=== PATIENT | male | born 1945 | race Hispanic/Latino ===

== ENCOUNTER 2017-06-02 13:18 | Emergency (ER) | payer MEDICARE ==
[2017-06-02 13:39] VITALS: BP 100/63
[2017-06-02 14:47] LABS: Bilirubin,Urine NEG (Negative); Blood,Urine NEG (Negative); Color,Urine Yellow (Yellow); Protein,Urine <15 mg/dL mg/dL (Negative); Urobilinogen,Urine < 2.0 mg/dL (<2.0)
--- NOTE | 2017-06-02 15:50 | Emergency Department Report ---
ED General Adult HPI - General Chief complaint: Dizziness Stated complaint: DIZZINESS Time Seen by Provider: 06/02/17 15:39 Source: patient Mode of arrival: Ambulatory Limitations: No Limitations - History of Present Illness Initial comments: Mr. Thrasher is a very pleasant 71 yo male with hx of CAD s/p CABG 2014 who presents with fatigue for 2 months. Normally walks 1-2 miles. Unable to exercise due to fatigue. Has has achy pain in both legs. Burning pain in both arms with lower neck pain. Recent physical exam with lab work by MD physician. He stopped taking all medications 1 1/2 weeks ago due to achiness and fatigue. -: Gradual, month(s) (2 months) - Related Data Home Medications Medication Instructions Recorded Confirmed Last Taken glipiZIDE [Glucotrol Xl] 5 mg PO DAILY 02/20/15 04/26/15 04/26/15 traMADol [Ultram] 50 mg PO BID 02/20/15 04/26/15 04/25/15 Aspirin [Aspirin EC] 162 mg PO DAILY 04/26/15 04/26/15 04/26/15 AtorvaSTATin [Lipitor] 40 mg PO QHS 04/26/15 04/26/15 04/25/15 Metoprolol Tartrate 12.5 mg PO BID 04/26/15 04/26/15 04/26/15 Previous Rx's Medication Instructions Recorded Last Taken Type metFORMIN [Glucophage] 500 mg PO BID #90 tablet 10/08/14 04/26/15 Rx Allergies Allergy/AdvReac Type Severity Reaction Status Date / Time No Known Allergies Allergy Verified 04/26/15 11:15 ED Review of Systems ROS: Stated complaint: DIZZINESS Other details as noted in HPI Comment: All other systems reviewed and negative Constitutional: denies: fever, malaise Respiratory: denies: cough Cardiovascular: denies: chest pain, palpitations Gastrointestinal: denies: abdominal pain, nausea, vomiting ED Past Medical Hx - Past Medical History Hx Hypertension: Yes Hx Diabetes: Yes Hx Sickle Cell Disease: No Hx Kidney Stones: Yes (LEFT) Hx HIV: No Additional medical history: DIVERTICULITIS, - Surgical History Hx Open Heart Surgery: Yes Additional Surgical History: LEFT EAR SURGERY. CABG X2. 02/26/2015. [facility]. Cardiac Cath 02/21/2015 here - Social History Smoking Status: Never Smoker Substance Use Type: None - Medications Home Medications: Home Medications Medication Instructions Recorded Confirmed Last Taken Type metFORMIN [Glucophage] 500 mg PO BID #90 tablet 10/08/14 04/26/15 04/26/15 Rx glipiZIDE [Glucotrol Xl] 5 mg PO DAILY 02/20/15 04/26/15 04/26/15 History traMADol [Ultram] 50 mg PO BID 02/20/15 04/26/15 04/25/15 History Aspirin [Aspirin EC] 162 mg PO DAILY 04/26/15 04/26/15 04/26/15 History AtorvaSTATin [Lipitor] 40 mg PO QHS 04/26/15 04/26/15 04/25/15 History Metoprolol Tartrate 12.5 mg PO BID 04/26/15 04/26/15 04/26/15 History ED Physical Exam - General Limitations: No Limitations General appearance: alert, in no apparent distress - Head Head exam: Present: atraumatic, normocephalic - Eye Eye exam: Present: normal appearance - ENT ENT exam: Present: mucous membranes moist - Neck Neck exam: Present: normal inspection - Respiratory Respiratory exam: Present: normal lung sounds bilaterally. Absent: respiratory distress, wheezes, rales, rhonchi - Cardiovascular Cardiovascular Exam: Present: regular rate, normal rhythm, normal heart sounds. Absent: systolic murmur, diastolic murmur, rubs, gallop - GI/Abdominal GI/Abdominal exam: Present: soft, normal bowel sounds. Absent: distended, tenderness, guarding, rebound - Rectal Rectal exam: Present: normal rectal tone, heme (+) stool, other (brown soft stool no gross blood nor melena) - Extremities Exam Extremities exam: Present: normal inspection - Back Exam Back exam: Present: normal inspection - Neurological Exam Neurological exam: Present: alert, oriented X3 - Psychiatric Psychiatric exam: Present: normal affect, normal mood - Skin Skin exam: Present: warm, dry, intact, normal color. Absent: rash ED Course Vital Signs 06/02/17 13:30 Temperature 98.7 F Pulse Rate 111 H Respiratory 20 Rate Blood Pressure 100/63 O2 Sat by Pulse 98 Oximetry ED Medical Decision Making - Lab Data Result diagrams: 06/02/17 15:45 06/02/17 15:45 - EKG Data -: EKG Interpreted by Me EKG shows normal: sinus rhythm, axis, intervals, QRS complexes, ST-T waves Rate: normal - EKG Data NSR nl rate nl axis nl intervals no ST-T signs of ischemia no ST elevation rate 95 bpm - Medical Decision Making Mr. Thrasher presents with 2 months of fatigue and extremity pain. Symptoms are due to anemia. +hemoccult stool +subacute GI bleed I had a very pleasant encounter with Mr. Thrasher. He politely declined admission to hospital for transfusion and GI consultation. He knows that he needs a higher hemoglobin level with transfusion in order to protect his heart. He left AMA to f/u with his primary doctor tomorrow. [facility] Critical care attestation.: If time is entered above; I have spent that time in minutes in the direct care of this critically ill patient, excluding procedure time. ED Disposition Clinical Impression: Anemia, GI bleed Disposition: DC-01 TO HOME OR SELFCARE Is pt being admited?: No Does the pt Need Aspirin: No Condition: Stable Instructions: Anemia (ED), Gastrointestinal Bleeding (ED) Additional Instructions: Your hemoglobin is 7. You need a blood transfusion to protect your heart. You are have blood in your stool. Referrals: PRIMARY CARE, [Primary Care Provider] - 3-5 Days Forms: AMA Form Time of Disposition: 16:39
[2017-06-02 15:58] LABS: Basophils # (Auto) 0.1 K/mm3 (0.0-0.1); Basophils % (Auto) 0.6 % (0.0-1.8); Eosinophils # (Auto) 0.1 K/mm3 (0.0-0.4); Lymphocytes # (Auto) 2.4 K/mm3 (1.2-5.4); Lymphocytes % (Auto) 20.5 % (13.4-35.0); Mean Corpuscular HGB Conc 29 % (32-34); Monocytes # (Auto) 0.9 K/mm3 (0.0-0.8); Platelet Count 343 K/mm3 (140-440); Red Blood Count 4.08 M/mm3 (3.65-5.03); Red Cell Distribution Width 17.1 % (13.2-15.2)
[2017-06-02 16:02] LABS: Hemoglobin 7.9 gm/dl (11.8-15.2)
[2017-06-02 16:03] LABS: Hematocrit 27.1 % (35.5-45.6); Mean Corpuscular Hemoglobin 19 pg (28-32); Mean Corpuscular Volume 66 fl (84-94)
[2017-06-02 16:09] LABS: Alanine Aminotransferase 20 units/L (7-56); Albumin 4.3 g/dL (3.9-5); BUN/Creatinine Ratio 22; Blood Urea Nitrogen 22 mg/dL (9-20); Calcium 9.2 mg/dL (8.4-10.2); Hemolysis Index 23
--- NOTE | 2017-06-02 16:59 | XRay Report ---
FINAL REPORT EXAM: XR CHEST ROUTINE 2V HISTORY: fatigue TECHNIQUE: PA and lateral views of the chest PRIORS: None. FINDINGS: Lines, tubes, and devices: Median sternotomy wires are noted. Lungs and pleura: Trachea is normal in position. Linear scarring or atelectasis in the right middle lobe is noted. Lungs are otherwise clear of infiltrate, pleural effusion, vascular congestion, or pneumothorax. Cardiomediastinal silhouette: Cardiac and mediastinal silhouettes are unremarkable. Other: Bony structures are intact. IMPRESSION: Linear scarring or atelectasis in the right middle lobe. Otherwise, no acute cardiopulmonary process seen.
--- NOTE | 2017-06-02 17:04 | XRay Report ---
FINAL REPORT EXAM: XR SPINE CERVICAL 2-3V HISTORY: neck pain arm pain TECHNIQUE: AP, lateral, swimmer's, and odontoid views of the cervical spine PRIORS: None. FINDINGS: The vertebral body heights are well maintained. Moderate disc space narrowing from C5 through C7 is seen with spurring anteriorly and posteriorly. The alignment is normal. No prevertebral soft tissue swelling is seen. The odontoid is intact. Extensive bilateral facet joint degenerative changes at all levels is seen. IMPRESSION: 1. No acute bony abnormality noted. 2. Moderate disc space narrowing from C5 through C7 with spurring anteriorly and posteriorly at these levels 3. Bilateral facet joint degenerative changes throughout the cervical spine.
== END 2017-06-02 16:55 | disposition home or self-care (01) ==
LOC: ED 13:18
DX: K92.2 Gastrointestinal hemorrhage, unspecified (principal); D64.9 Anemia, unspecified; M54.2 Cervicalgia; M79.604 Pain in right leg; M79.605 Pain in left leg; M79.601 Pain in right arm; M79.602 Pain in left arm; I10 Essential (primary) hypertension; E11.9 Type 2 diabetes mellitus without complications; Z87.442 Personal history of urinary calculi; I25.10 Atherosclerotic heart disease of native coronary artery without angina pectoris; Z95.1 Presence of aortocoronary bypass graft
CPT/HCPCS: 36415; 71046; 72040; 80053; 81001; 83880; 85025; 93005; 93010; 99284

== ENCOUNTER 2017-06-03 10:17 | Inpatient (IN) | payer MEDICARE ==
[2017-06-03] MEDS ORDERED: NACL 0.9% 1000 ML 1,000 ML IV ONE (10:55)
[2017-06-03 11:11] LABS: Basophils # (Auto) 0.1 K/mm3 (0.0-0.1); Basophils % (Auto) 0.7 % (0.0-1.8); Eosinophils # (Auto) 0.2 K/mm3 (0.0-0.4); Eosinophils % (Auto) 1.4 % (0.0-4.3); Hematocrit 26.5 % (35.5-45.6); Hemoglobin 7.9 gm/dl (11.8-15.2); Lymphocytes # (Auto) 2.4 K/mm3 (1.2-5.4); Lymphocytes % (Auto) 21.2 % (13.4-35.0); Mean Corpuscular HGB Conc 30 % (32-34); Monocytes # (Auto) 0.9 K/mm3 (0.0-0.8); Monocytes % (Auto) 7.8 % (0.0-7.3); Platelet Count 315 K/mm3 (140-440); Red Blood Count 4.08 M/mm3 (3.65-5.03); Red Cell Distribution Width 17.5 % (13.2-15.2)
[2017-06-03 11:15] LABS: Mean Corpuscular Volume 65 fl (84-94)
[2017-06-03 11:16] LABS: Mean Corpuscular Hemoglobin 19 pg (28-32)
[2017-06-03 11:23] LABS: INR 1.01 (0.87-1.13)
[2017-06-03 11:24] LABS: Partial Thromboplastin Time 30.9 Sec. (24.2-36.6)
[2017-06-03 11:26] LABS: Alanine Aminotransferase 20 units/L (7-56); Albumin 4.3 g/dL (3.9-5); BUN/Creatinine Ratio 24; Blood Urea Nitrogen 22 mg/dL (9-20); Calcium 9.3 mg/dL (8.4-10.2); Hemolysis Index 0; Lipase 34 units/L (13-60)
--- NOTE | 2017-06-03 16:59 | Emergency Department Report ---
- General Chief complaint: GI Bleed Stated complaint: ANEMIA/SOB/CHEST PAIN Time Seen by Provider: 06/03/17 16:33 Source: patient, old records reviewed Mode of arrival: Ambulatory Limitations: No Limitations - History of Present Illness Initial comments: 71-year-old male with a past medical history diabetes, hypertension and diverticulitis, and CABG 1 (2015- pt's most recent cath) vessel this hospital with complaints of weakness, fatigue, and despite exertion. For the past 2 months patient states he has been having worsening dyspnea on exertion and dyspnea fatigue with activity. He has not the point where he could barely take a shower and shaved without his arms feeling heavy. The past month he has been lightheaded. He denies chest pain, melena, hematochezia, hematemesis, or fever. Patient was seen here yesterday by Dr. Marizol Eid and found to be anemic with heme positive stool and signed out AMA with plans to follow up with his primary care doctor today. His primary care doctor was unavailable and therefore he presented here again for treatment. Patient takes 2 baby aspirins daily and denies other anticoagulant use. Severity scale (0 -10): 0 - Related Data Home Medications Medication Instructions Recorded Confirmed Last Taken glipiZIDE [Glucotrol Xl] 5 mg PO DAILY 02/20/15 04/26/15 04/26/15 traMADol [Ultram] 50 mg PO BID 02/20/15 04/26/15 04/25/15 Aspirin [Aspirin EC] 162 mg PO DAILY 04/26/15 04/26/15 04/26/15 AtorvaSTATin [Lipitor] 40 mg PO QHS 04/26/15 04/26/15 04/25/15 Metoprolol Tartrate 12.5 mg PO BID 04/26/15 04/26/15 04/26/15 Previous Rx's Medication Instructions Recorded Last Taken Type metFORMIN [Glucophage] 500 mg PO BID #90 tablet 10/08/14 04/26/15 Rx Allergies Allergy/AdvReac Type Severity Reaction Status Date / Time No Known Allergies Allergy Verified 04/26/15 11:15 ED Review of Systems ROS: Stated complaint: ANEMIA/SOB/CHEST PAIN Other details as noted in HPI Comment: All other systems reviewed and negative ED Past Medical Hx - Past Medical History Previous Medical History?: Yes Hx Hypertension: Yes Hx Diabetes: Yes Hx Sickle Cell Disease: No Hx Kidney Stones: Yes (LEFT) Hx HIV: No Additional medical history: DIVERTICULITIS, bulging disc in neck - Surgical History Past Surgical History?: Yes Hx Open Heart Surgery: Yes Additional Surgical History: LEFT EAR SURGERY. CABG X2. 02/26/2015. [facility] [place]. Cardiac Cath 02/21/2015 here - Social History Smoking Status: Former Smoker Substance Use Type: Prescribed - Medications Home Medications: Home Medications Medication Instructions Recorded Confirmed Last Taken Type metFORMIN [Glucophage] 500 mg PO BID #90 tablet 10/08/14 04/26/15 04/26/15 Rx glipiZIDE [Glucotrol Xl] 5 mg PO DAILY 02/20/15 04/26/15 04/26/15 History traMADol [Ultram] 50 mg PO BID 02/20/15 04/26/15 04/25/15 History Aspirin [Aspirin EC] 162 mg PO DAILY 04/26/15 04/26/15 04/26/15 History AtorvaSTATin [Lipitor] 40 mg PO QHS 04/26/15 04/26/15 04/25/15 History Metoprolol Tartrate 12.5 mg PO BID 04/26/15 04/26/15 04/26/15 History ED Physical Exam - General Limitations: No Limitations - Other Other exam information: General: No limitations, patient is alert in no acute distress Head exam: Atraumatic, normocephalic Eyes exam: Normal appearance, pupils equal reactive to light, extraocular movements intact ENT: Moist mucous membrane, normal oropharynx Neck exam: Normal inspection, full range of motion, no meningismus nontender Respiratory exam: Clear to auscultation bilateral, no wheezes, rales, crackles Cardiovascular: Normal rate and rhythm, normal heart sounds Abdomen: Soft, nondistended, and nontender, with normal bowel sounds, no rebound, or guarding Extremity: Full range of motion normal inspection no deformity, no calf tenderness or edema Back: Normal Inspection, full range of motion, no tenderness Neurologic: Alert, oriented x3, cranial nerves intact, no motor or sensory deficit Psychiatric: normal affect, normal mood Skin: Warm, dry, intact ED Course Vital Signs 06/03/17 06/03/17 06/03/17 10:50 14:33 16:04 Temperature 97.9 F 98 F Pulse Rate 103 H 96 H 85 Respiratory 18 17 17 Rate Blood Pressure 134/73 Blood Pressure 119/68 152/68 [Left] O2 Sat by Pulse 98 98 97 Oximetry ED Medical Decision Making - Lab Data Result diagrams: 06/03/17 10:58 06/03/17 10:58 Lab Results 06/03/17 06/03/17 06/03/17 Range/Units 10:58 10:58 10:58 WBC 11.2 H (4.5-11.0) K/mm3 RBC 4.08 (3.65-5.03) M/mm3 Hgb 7.9 L (11.8-15.2) gm/dl Hct 26.5 L (35.5-45.6) % MCV 65 L (84-94) fl MCH 19 L (28-32) pg MCHC 30 L (32-34) % RDW 17.5 H (13.2-15.2) % Plt Count 315 (140-440) K/mm3 Lymph % (Auto) 21.2 (13.4-35.0) % [place] % (Auto) 7.8 H (0.0-7.3) % Eos % (Auto) 1.4 (0.0-4.3) % Baso % (Auto) 0.7 (0.0-1.8) % Lymph # 2.4 (1.2-5.4) K/mm3 [place] # 0.9 H (0.0-0.8) K/mm3 Eos # 0.2 (0.0-0.4) K/mm3 Baso # 0.1 (0.0-0.1) K/mm3 Seg Neutrophils % 68.9 (40.0-70.0) % Seg Neutrophils # 7.7 (1.8-7.7) K/mm3 PT 13.8 (12.2-14.9) Sec. INR 1.01 (0.87-1.13) APTT 30.9 (24.2-36.6) Sec. Sodium 134 L (137-145) mmol/L Potassium 4.9 (3.6-5.0) mmol/L Chloride 94.7 L (98-107) mmol/L Carbon Dioxide 24 (22-30) mmol/L Anion Gap 20 mmol/L BUN 22 H (9-20) mg/dL Creatinine 0.9 (0.8-1.5) mg/dL Estimated GFR > 60 ml/min BUN/Creatinine Ratio 24 % Glucose 355 H (75-100) mg/dL Calcium 9.3 (8.4-10.2) mg/dL Total Bilirubin 0.50 (0.1-1.2) mg/dL AST 21 (5-40) units/L ALT 20 (7-56) units/L Alkaline Phosphatase 78 (35-129) units/L Total Protein 7.2 (6.3-8.2) g/dL Albumin 4.3 (3.9-5) g/dL Albumin/Globulin Ratio 1.5 % Lipase 34 (13-60) units/L Blood Type Antibody Screen 06/03/17 Range/Units 10:58 WBC (4.5-11.0) K/mm3 RBC (3.65-5.03) M/mm3 Hgb (11.8-15.2) gm/dl Hct (35.5-45.6) % MCV (84-94) fl MCH (28-32) pg MCHC (32-34) % RDW (13.2-15.2) % Plt Count (140-440) K/mm3 Lymph % (Auto) (13.4-35.0) % [place] % (Auto) (0.0-7.3) % Eos % (Auto) (0.0-4.3) % Baso % (Auto) (0.0-1.8) % Lymph # (1.2-5.4) K/mm3 [place] # (0.0-0.8) K/mm3 Eos # (0.0-0.4) K/mm3 Baso # (0.0-0.1) K/mm3 Seg Neutrophils % (40.0-70.0) % Seg Neutrophils # (1.8-7.7) K/mm3 PT (12.2-14.9) Sec. INR (0.87-1.13) APTT (24.2-36.6) Sec. Sodium (137-145) mmol/L Potassium (3.6-5.0) mmol/L Chloride (98-107) mmol/L Carbon Dioxide (22-30) mmol/L Anion Gap mmol/L BUN (9-20) mg/dL Creatinine (0.8-1.5) mg/dL Estimated GFR ml/min BUN/Creatinine Ratio % Glucose (75-100) mg/dL Calcium (8.4-10.2) mg/dL Total Bilirubin (0.1-1.2) mg/dL AST (5-40) units/L ALT (7-56) units/L Alkaline Phosphatase (35-129) units/L Total Protein (6.3-8.2) g/dL Albumin (3.9-5) g/dL Albumin/Globulin Ratio % Lipase (13-60) units/L Blood Type O POSITIVE Antibody Screen Negative - EKG Data -: EKG Interpreted by Al EKG shows normal: sinus rhythm, axis (qrs -17), QRS complexes (86), ST-T waves ( no stemi/t wave) Rate: normal (94) - EKG Data When compared to previous EKG there are: no significant change - Radiology Data Radiology results: report reviewed Chest x-ray from yesterday reviewed. Linear atelectasis right middle lobe - Differential Diagnosis CAD, PE, and symptomatic anemia Critical Care Time: No Critical care attestation.: If time is entered above; I have spent that time in minutes in the direct care of this critically ill patient, excluding procedure time. ED Disposition Clinical Impression: Symptomatic anemia, Generalized weakness, S/P CABG x 1, Diabetes mellitus, Guaiac positive stools, DOTY (dyspnea on exertion) Disposition: -09 OP ADMIT IP TO THIS HOSP Is pt being admited?: Yes Condition: Stable Time of Disposition: 16:59 (Dr hall/hosp)
[2017-06-03] MEDS ORDERED: ZOFRAN IV PRN (21:42)
[2017-06-03] MEDS ORDERED: TYLENOL PO PRN (21:42)
[2017-06-03] MEDS ORDERED: SODIUM CHLORIDE FLUSH SYRINGE 10 ML IV PRN (21:42)
[2017-06-03] MEDS ORDERED: MORPHINE IV PRN (21:42)
--- NOTE | 2017-06-03 21:42 | History and Physical Report ---
History of Present Illness Date of examination: 06/03/17 Date of admission: 06/03/17 17:00 Chief complaint: Chief complaint: Feeling very weak History of present illness: History of Present Illness: 71-year-old male with past medical history of type 2 diabetes hypertension diverticulitis and coronary artery disease presents to the emergency room with complaints of weakness fatigue and dyspnea on exertion. For the past 2 months patient's symptoms are worsening and is getting short of breath easily. Class IV NYHA symptoms. Patient is also lightheaded. No hematemesis or melena. Patient came to the emergency room yesterday for the same symptoms and was found to be anemic. Patient was advised admission but he signed out AGAINST MEDICAL ADVICE. Takes baby aspirins for coronary artery disease. Past Medical History Hx Hypertension: Yes Hx Diabetes: Yes Hx Kidney Stones: Yes (LEFT) Additional medical history: DIVERTICULITIS, bulging disc in neck Surgical History Past Surgical History?: Yes Hx Open Heart Surgery: Yes Additional Surgical History: LEFT EAR SURGERY. CABG X2. 02/26/2015. [facility]. Cardiac Cath 02/21/2015 here - Social History Smoking Status: Former Smoker Substance Use Type: Prescribed Family history Htn - Medications Home Medications: Home Medications Medication Instructions Recorded Confirmed Last Taken Type metFORMIN [Glucophage] 500 mg PO BID #90 tablet 10/08/14 04/26/15 04/26/15 Rx glipiZIDE [Glucotrol Xl] 5 mg PO DAILY 02/20/15 04/26/15 04/26/15 History traMADol [Ultram] 50 mg PO BID 02/20/15 04/26/15 04/25/15 History Aspirin [Aspirin EC] 162 mg PO DAILY 04/26/15 04/26/15 04/26/15 History AtorvaSTATin [Lipitor] 40 mg PO QHS 04/26/15 04/26/15 04/25/15 History Metoprolol Tartrate 12.5 mg PO BID 04/26/15 04/26/15 04/26/15 History Medications and Allergies Allergies Allergy/AdvReac Type Severity Reaction Status Date / Time No Known Allergies Allergy Verified 04/26/15 11:15 Home Medications Medication Instructions Recorded Confirmed Last Taken Type traMADol [Ultram] 100 mg PO BID 02/20/15 06/03/17 06/03/17 08:00 History Aspirin [Aspirin EC] 81 mg PO DAILY 04/26/15 06/03/17 06/02/17 History Review of Systems All systems: negative Constitutional: fatigue, weakness, malaise, no weight loss, no weight gain, no fever, no chills, no sweats, no night sweats Ears, nose, mouth and throat: no dysphagia, no hoarseness, no sore throat, no odynophagia Cardiovascular: lightheadedness, shortness of breath, dyspnea on exertion, no chest pain, no orthopnea, no palpitations, no rapid/irregular heart beat, no edema, no syncope Respiratory: shortness of breath, dyspnea on exertion, no cough, no cough with sputum, no excessive sputum, no hemoptysis, no congestion, no wheezing, no pleurisy, no pain Gastrointestinal: heartburn, no abdominal pain, no nausea, no vomiting, no diarrhea, no constipation, no change in bowel habits, no hematemesis, no coffee ground emesis, no BRBPR, no melena Genitourinary Male: no dysuria, no hematuria, no flank pain, no discharge, no urinary frequency, no urinary hesitancy, no nocturia Rectal: no pain Musculoskeletal: no neck stiffness, no neck pain, no shooting arm pain, no arm numbness/tingling, no low back pain, no shooting leg pain, no leg numbness/ tingling, no redness of joints Integumentary: no rash, no pruritis, no redness, no sores, no wounds, no jaundice, no boils, no blisters Neurological: no head injury, no transient paralysis, no seizures, no syncope Psychiatric: no anxiety, no memory loss, no change in sleep habits, no sleep disturbances, no insomnia, no hypersomnia, no change in appetite, no change in libido, no suicidal ideation Endocrine: no cold intolerance, no heat intolerance, no polyphagia, no excessive thirst, no polydipsia Hematologic/Lymphatic: no easy bruising, no easy bleeding Allergic/Immunologic: no urticaria, no allergic rhinitis, no wheezing Exam - Physical Exam Narrative exam: Lying in bed comfortably - Constitutional Vitals: Temp Pulse Resp BP Pulse Ox 98.1 F 72 22 134/69 99 06/03/17 19:15 06/03/17 19:15 06/03/17 19:15 06/03/17 20:00 06/03/17 20:00 General appearance: Present: no acute distress, well-nourished - EENT Eyes: Present: PERRL ENT: hearing intact, clear oral mucosa - Neck Neck: Present: supple, normal ROM - Respiratory Respiratory effort: normal Respiratory: bilateral: CTA - Cardiovascular Heart rate: 80 Rhythm: regular Heart Sounds: Present: S1 & S2. Absent: rub, click - Extremities Extremities: no ischemia, pulses intact, pulses symmetrical, No edema Peripheral Pulses: within normal limits - Abdominal General gastrointestinal: Present: soft, non-tender, non-distended, normal bowel sounds, other (occult blood positive) Male genitourinary: Present: normal - Rectal Rectal Exam: deferred - Integumentary Integumentary: Present: clear, warm, dry - Musculoskeletal Musculoskeletal: gait normal, strength equal bilaterally - Psychiatric Psychiatric: appropriate mood/affect, intact judgment & insight - Neurologic Neurologic: CNII-XII intact, moves all extremities - Allied Health Allied health notes reviewed: nursing, case management Results - Labs CBC & Chem 7: 06/03/17 10:58 06/03/17 10:58 Labs: Laboratory Last Values WBC 11.2 K/mm3 (4.5-11.0) H 06/03/17 10:58 RBC 4.08 M/mm3 (3.65-5.03) 06/03/17 10:58 Hgb 7.9 gm/dl (11.8-15.2) L 06/03/17 10:58 Hct 26.5 % (35.5-45.6) L 06/03/17 10:58 MCV 65 fl (84-94) L 06/03/17 10:58 MCH 19 pg (28-32) L 06/03/17 10:58 MCHC 30 % (32-34) L 06/03/17 10:58 RDW 17.5 % (13.2-15.2) H 06/03/17 10:58 Plt Count 315 K/mm3 (140-440) 06/03/17 10:58 Lymph % (Auto) 21.2 % (13.4-35.0) 06/03/17 10:58 [place] % (Auto) 7.8 % (0.0-7.3) H 06/03/17 10:58 Eos % (Auto) 1.4 % (0.0-4.3) 06/03/17 10:58 Baso % (Auto) 0.7 % (0.0-1.8) 06/03/17 10:58 Lymph # 2.4 K/mm3 (1.2-5.4) 06/03/17 10:58 [place] # 0.9 K/mm3 (0.0-0.8) H 06/03/17 10:58 Eos # 0.2 K/mm3 (0.0-0.4) 06/03/17 10:58 Baso # 0.1 K/mm3 (0.0-0.1) 06/03/17 10:58 Seg Neutrophils % 68.9 % (40.0-70.0) 06/03/17 10:58 Seg Neutrophils # 7.7 K/mm3 (1.8-7.7) 06/03/17 10:58 PT 13.8 Sec. (12.2-14.9) 06/03/17 10:58 INR 1.01 (0.87-1.13) 06/03/17 10:58 APTT 30.9 Sec. (24.2-36.6) 06/03/17 10:58 Sodium 134 mmol/L (137-145) L 06/03/17 10:58 Potassium 4.9 mmol/L (3.6-5.0) 06/03/17 10:58 Chloride 94.7 mmol/L (98-107) L 06/03/17 10:58 Carbon Dioxide 24 mmol/L (22-30) 06/03/17 10:58 Anion Gap 20 mmol/L 06/03/17 10:58 BUN 22 mg/dL (9-20) H 06/03/17 10:58 Creatinine 0.9 mg/dL (0.8-1.5) 06/03/17 10:58 Estimated GFR > 60 ml/min 06/03/17 10:58 BUN/Creatinine Ratio 24 % 06/03/17 10:58 Glucose 355 mg/dL (75-100) H 06/03/17 10:58 Calcium 9.3 mg/dL (8.4-10.2) 06/03/17 10:58 Total Bilirubin 0.50 mg/dL (0.1-1.2) 06/03/17 10:58 AST 21 units/L (5-40) 06/03/17 10:58 ALT 20 units/L (7-56) 06/03/17 10:58 Alkaline Phosphatase 78 units/L (35-129) 06/03/17 10:58 Total Protein 7.2 g/dL (6.3-8.2) 06/03/17 10:58 Albumin 4.3 g/dL (3.9-5) 06/03/17 10:58 Albumin/Globulin Ratio 1.5 % 06/03/17 10:58 Lipase 34 units/L (13-60) 06/03/17 10:58 Blood Type O POSITIVE 06/03/17 10:58 Antibody Screen Negative 06/03/17 10:58 Short CBC 06/03/17 Range/Units 10:58 WBC 11.2 H (4.5-11.0) K/mm3 Hgb 7.9 L (11.8-15.2) gm/dl Hct 26.5 L (35.5-45.6) % Plt Count 315 (140-440) K/mm3 BMP 06/03/17 10:58 Sodium 134 L Potassium 4.9 Chloride 94.7 L Carbon Dioxide 24 BUN 22 H Creatinine 0.9 Glucose 355 H Calcium 9.3 Liver Function 06/03/17 Range/Units 10:58 Total Bilirubin 0.50 (0.1-1.2) mg/dL AST 21 (5-40) units/L ALT 20 (7-56) units/L Alkaline Phosphatase 78 (35-129) units/L Albumin 4.3 (3.9-5) g/dL Assessment and Plan Advance Directives: Yes (full code) VTE prophylaxis?: Mechanical Plan of care discussed with patient/family: Yes - Patient Problems (1) GI (gastrointestinal hemorrhage) Current Visit: Yes Status: Acute Qualifiers: GI bleed type/associated pathology: unspecified gastrointestinal hemorrhage type Qualified Code(s): K92.2 - Gastrointestinal hemorrhage, unspecified Plan to address problem: The patient initiated on IV Protonix drip. We will transfuse 1 unit of packed red blood cells. Patient has a significant drop of hemoglobin from 17.4 on to 7.9 on 06/03/2017 (2) Acute blood loss anemia Current Visit: Yes Status: Acute Plan to address problem: Transfuse 1 unit Significant drop of 10 mg of hemoglobin IV Protonix (3) T2DM (type 2 diabetes mellitus) Current Visit: Yes Status: Chronic Qualifiers: Diabetes mellitus chcf insulin use: without rn long term care use Plan to address problem: Coverage for now check hemoglobin A1c (4) Hypertension Current Visit: Yes Status: Chronic Qualifiers: Hypertension type: essential hypertension Qualified Code(s): I10 - Essential (primary) hypertension Plan to address problem: Continue antihypertensives in the form of Catap[place] patch if necessary (5) Hyperlipidemia Current Visit: Yes Status: Chronic Qualifiers: Hyperlipidemia type: mixed hyperlipidemia Qualified Code(s): E78.2 - Mixed hyperlipidemia Plan to address problem: Hold the statins (6) DVT prophylaxis Current Visit: Yes Status: Acute Plan to address problem: SCDs only
[2017-06-03] MEDS ORDERED: NACL 0.9% 500 ML 500 ML IV ONE (21:45)
[2017-06-03] MEDS ORDERED: PROTONIX 80 MG in NACL 0.9% 100 ML IV SCH (22:00)
[2017-06-03] MEDS ORDERED: NACL 0.9% 1000 ML 1,000 ML IV SCH (22:00)
[2017-06-04] MEDS: SODIUM CHLORIDE FLUSH SYRINGE 10 ML IV SCH ×3 (01:42→22:07)
[2017-06-04] MEDS: HumaLOG SUB-Q SCH ×4 (02:25→17:48)
[2017-06-04] MEDS ORDERED: NACL 0.9% 250ML 0 ML ONE (03:37)
[2017-06-04] MEDS ORDERED: NACL 0.9% 500 ML 500 ML ONE (03:41)
[2017-06-04] MEDS ORDERED: PROTONIX 80 MG in NACL 0.9% 100 ML IV SCH (04:00)
[2017-06-04 09:58] LABS: Basophils % (Auto) 0.7 % (0.0-1.8); Eosinophils # (Auto) 0.1 K/mm3 (0.0-0.4); Lymphocytes # (Auto) 1.8 K/mm3 (1.2-5.4); Lymphocytes % (Auto) 26.7 % (13.4-35.0); Mean Corpuscular HGB Conc 30 % (32-34); Monocytes # (Auto) 0.6 K/mm3 (0.0-0.8); Monocytes % (Auto) 8.5 % (0.0-7.3); Platelet Count 252 K/mm3 (140-440); Red Blood Count 3.94 M/mm3 (3.65-5.03); Red Cell Distribution Width 18.7 % (13.2-15.2)
[2017-06-04 10:12] LABS: Hematocrit 26.7 % (35.5-45.6); Hemoglobin 7.9 gm/dl (11.8-15.2); Mean Corpuscular Hemoglobin 20 pg (28-32); Mean Corpuscular Volume 68 fl (84-94)
[2017-06-04] MEDS: DILAUDID IV PRN ×2 (10:22→20:01)
[2017-06-04 10:28] LABS: Alanine Aminotransferase 21 units/L (7-56); Albumin 3.8 g/dL (3.9-5); BUN/Creatinine Ratio 24; Blood Urea Nitrogen 19 mg/dL (9-20); Calcium 8.1 mg/dL (8.4-10.2); Hemolysis Index 9
--- NOTE | 2017-06-04 11:19 | Gastroenterology Consultation ---
<QUINN DICKINSON - Last Filed: 06/04/17 11:28> History of Present Illness - Reason for Consult Consult date: 06/04/17 anemia Requesting physician: AMRIT FLOWER - History of Present Illness Patient is a 71 y/o male with PMH of HTN, DM, and CAD (CABG in 2014) who presented to ED with c/o weakness, fatigue, and dyspnea on exertion x 2 months. He was found to be anemic on admission with H/H 7.9/26.5 with stool guaiac positive to which GI has been consulted. This morning pt was resting in bed w/o acute distress. No signs of active bleeding such as hematemesis, melena, or hematochezia. States he is feeling better after blood transfusion. Denies wt loss, abd pain, N/V, dysphagia, diarrhea, or constipation. Takes daily ASA. No hx of PUD or previous EGD. Last colonoscopy approximately 2 years ago. No Fhx of GI cancers. Past History Past Medical History: CAD, diabetes, other (kidney stones, diverticulitis, bulding disc in neck) Past Surgical History: CABG (2014), Other (left ear) Social history: lives with family, other (former smoker). denies: alcohol abuse Family history: hypertension Medications and Allergies Allergies Allergy/AdvReac Type Severity Reaction Status Date / Time No Known Allergies Allergy Verified 04/26/15 11:15 Home Medications Medication Instructions Recorded Confirmed Last Taken Type traMADol [Ultram] 100 mg PO BID 02/20/15 06/03/17 06/03/17 08:00 History Aspirin [Aspirin EC] 81 mg PO DAILY 04/26/15 06/03/17 06/02/17 History Active Meds: Active Medications Acetaminophen (Tylenol) 650 mg PO Q4H PRN PRN Reason: Pain MILD(1-3)/Fever >100.5/RODARTE Hydromorphone HCl (Dilaudid) 0.5 mg IV Q3H PRN PRN Reason: Pain , Severe (7-10) Last Admin: 06/04/17 10:22 Dose: 0.5 mg Sodium Chloride (Nacl 0.9% 1000 Ml) 1,000 mls @ 42 mls/hr IV DIRECT GÉNESIS Pantoprazole Sodium 80 mg/ (Sodium Chloride) 100 mls @ 10 mls/hr IV DIRECT GÉNESIS Last Admin: 06/04/17 04:22 Dose: 8 mg/hr, 10 mls/hr Insulin Human Lispro (Humalog) 0 unit SUB-Q Q6HR [facility]; Protocol Last Admin: 06/04/17 08:30 Dose: Not Given Morphine Sulfate (Morphine) 2 mg IV Q4H PRN PRN Reason: Pain, Moderate (4-6) Ondansetron HCl (Zofran) 4 mg IV Q8H PRN PRN Reason: Nausea And Vomiting Sodium Chloride (Sodium Chloride Flush Syringe 10 Ml) 10 ml IV BID [facility] Last Admin: 06/04/17 10:24 Dose: 10 ml Sodium Chloride (Sodium Chloride Flush Syringe 10 Ml) 10 ml IV PRN PRN PRN Reason: LINE FLUSH Review of Systems - Review of Systems All systems: negative Constitutional: fatigue Gastrointestinal: no hematemesis, no melena, no hematochezia Exam - Constitutional Vital Signs: Temp Pulse Resp BP Pulse Ox 98.5 F 82 18 115/75 97 06/04/17 08:25 06/04/17 10:00 06/04/17 10:22 06/04/17 08:28 06/04/17 10:00 General appearance: no acute distress, well-nourished - EENT Eyes: PERRL, EOM intact ENT: hearing intact - Respiratory Respiratory: bilateral: CTA - Cardiovascular Rhythm: regular Heart Sounds: Present: S1 & S2 - Gastrointestinal General gastrointestinal: Present: soft, non-tender, non-distended, normal bowel sounds - Integumentary Integumentary: Present: warm, dry - Neurologic Neurological: alert and oriented x3 - Labs CBC & Chem 7: 06/04/17 09:48 06/04/17 09:48 Lab Results: Laboratory Results - last 24 hr 06/03/17 06/03/17 06/03/17 10:58 10:58 10:58 WBC RBC Hgb Hct MCV MCH MCHC RDW Plt Count Lymph % (Auto) [place] % (Auto) Eos % (Auto) Baso % (Auto) Lymph # Curry # Eos # Baso # Seg Neutrophils % Seg Neutrophils # PT 13.8 INR 1.01 APTT 30.9 Sodium 134 L Potassium 4.9 Chloride 94.7 L Carbon Dioxide 24 Anion Gap 20 BUN 22 H Creatinine 0.9 Estimated GFR > 60 BUN/Creatinine Ratio 24 Glucose 355 H POC Glucose Hemoglobin A1c Calcium 9.3 Total Bilirubin 0.50 AST 21 ALT 20 Alkaline Phosphatase 78 Total Protein 7.2 Albumin 4.3 Albumin/Globulin Ratio 1.5 Lipase 34 Blood Type O POSITIVE Antibody Screen Negative Crossmatch See Detail 06/03/17 06/04/17 06/04/17 22:01 02:05 07:21 WBC RBC Hgb Hct MCV MCH MCHC RDW Plt Count Lymph % (Auto) [place] % (Auto) Eos % (Auto) Baso % (Auto) Lymph # Curry # Eos # Baso # Seg Neutrophils % Seg Neutrophils # PT INR APTT Sodium Potassium Chloride Carbon Dioxide Anion Gap BUN Creatinine Estimated GFR BUN/Creatinine Ratio Glucose POC Glucose 305 H 204 H Hemoglobin A1c 10.0 H Calcium Total Bilirubin AST ALT Alkaline Phosphatase Total Protein Albumin Albumin/Globulin Ratio Lipase Blood Type Antibody Screen Crossmatch 06/04/17 06/04/17 09:48 09:48 WBC 6.7 RBC 3.94 Hgb 7.9 L Hct 26.7 L MCV 68 L MCH 20 L MCHC 30 L RDW 18.7 H Plt Count 252 Lymph % (Auto) 26.7 [place] % (Auto) 8.5 H Eos % (Auto) 2.0 Baso % (Auto) 0.7 Lymph # 1.8 Curry # 0.6 Eos # 0.1 Baso # 0.0 Seg Neutrophils % 62.1 Seg Neutrophils # 4.1 PT INR APTT Sodium 137 Potassium 4.2 Chloride 100.2 Carbon Dioxide 24 Anion Gap 17 BUN 19 Creatinine 0.8 Estimated GFR > 60 BUN/Creatinine Ratio 24 Glucose 193 H POC Glucose Hemoglobin A1c Calcium 8.1 L Total Bilirubin 0.70 AST 28 ALT 21 Alkaline Phosphatase 60 Total Protein 5.8 L Albumin 3.8 L Albumin/Globulin Ratio 1.9 Lipase Blood Type Antibody Screen Crossmatch Assessment and Plan 1.anemia -HGB 7.9- s/p 1unit of PRBCs -repeat H/H now -continue to monitor H/H and transfuse as needed -hold blood thinning medications -no active signs of bleeding- HD stable -etiology unclear -will schedule for EGD/colonoscopy in am -clear liquids today, then NPO after MN -continue PPI and supportive care -will follow <DEBBIE QUAN - Last Filed: 06/04/17 12:00> Medications and Allergies Active Meds: Active Medications Acetaminophen (Tylenol) 650 mg PO Q4H PRN PRN Reason: Pain MILD(1-3)/Fever >100.5/RODARTE Hydromorphone HCl (Dilaudid) 0.5 mg IV Q3H PRN PRN Reason: Pain , Severe (7-10) Last Admin: 06/04/17 10:22 Dose: 0.5 mg Sodium Chloride (Nacl 0.9% 1000 Ml) 1,000 mls @ 42 mls/hr IV DIRECT GÉNESIS Insulin Human Lispro (Humalog) 0 unit SUB-Q Q6HR [facility]; Protocol Last Admin: 06/04/17 08:30 Dose: Not Given Morphine Sulfate (Morphine) 2 mg IV Q4H PRN PRN Reason: Pain, Moderate (4-6) Ondansetron HCl (Zofran) 4 mg IV Q8H PRN PRN Reason: Nausea And Vomiting Pantoprazole Sodium (Protonix) 40 mg PO DAILY [facility] Polyethylene Glycol/Electrolytes (Golytely) 4,000 ml PO ONCE ONE Stop: 06/04/17 13:01 Sodium Chloride (Sodium Chloride Flush Syringe 10 Ml) 10 ml IV BID [facility] Last Admin: 06/04/17 10:24 Dose: 10 ml Sodium Chloride (Sodium Chloride Flush Syringe 10 Ml) 10 ml IV PRN PRN PRN Reason: LINE FLUSH Exam - Constitutional Vital Signs: Temp Pulse Resp BP Pulse Ox 98.5 F 82 18 115/75 97 06/04/17 08:25 06/04/17 10:00 06/04/17 10:22 06/04/17 08:28 06/04/17 10:00 - Labs CBC & Chem 7: 06/04/17 09:48 06/04/17 09:48 Lab Results: Laboratory Results - last 24 hr 06/03/17 06/03/17 06/04/17 10:58 22:01 02:05 WBC RBC Hgb Hct MCV MCH MCHC RDW Plt Count Lymph % (Auto) [place] % (Auto) Eos % (Auto) Baso % (Auto) Lymph # [place] # Eos # Baso # Seg Neutrophils % Seg Neutrophils # Sodium Potassium Chloride Carbon Dioxide Anion Gap BUN Creatinine Estimated GFR BUN/Creatinine Ratio Glucose POC Glucose 305 H Hemoglobin A1c 10.0 H Calcium Total Bilirubin AST ALT Alkaline Phosphatase Total Protein Albumin Albumin/Globulin Ratio Blood Type O POSITIVE Antibody Screen Negative Crossmatch See Detail 06/04/17 06/04/17 06/04/17 07:21 09:48 09:48 WBC 6.7 RBC 3.94 Hgb 7.9 L Hct 26.7 L MCV 68 L MCH 20 L MCHC 30 L RDW 18.7 H Plt Count 252 Lymph % (Auto) 26.7 Curry % (Auto) 8.5 H Eos % (Auto) 2.0 Baso % (Auto) 0.7 Lymph # 1.8 Curry # 0.6 Eos # 0.1 Baso # 0.0 Seg Neutrophils % 62.1 Seg Neutrophils # 4.1 Sodium 137 Potassium 4.2 Chloride 100.2 Carbon Dioxide 24 Anion Gap 17 BUN 19 Creatinine 0.8 Estimated GFR > 60 BUN/Creatinine Ratio 24 Glucose 193 H POC Glucose 204 H Hemoglobin A1c Calcium 8.1 L Total Bilirubin 0.70 AST 28 ALT 21 Alkaline Phosphatase 60 Total Protein 5.8 L Albumin 3.8 L Albumin/Globulin Ratio 1.9 Blood Type Antibody Screen Crossmatch Assessment and Plan - Patient Problems (1) GI (gastrointestinal hemorrhage) Current Visit: Yes Status: Acute Qualifiers: GI bleed type/associated pathology: unspecified gastrointestinal hemorrhage type Qualified Code(s): K92.2 - Gastrointestinal hemorrhage, unspecified (2) Guaiac positive stools Current Visit: Yes Status: Acute (3) Symptomatic anemia Current Visit: Yes Status: Acute Plan to address problem: The patient was seen and examined and GI plan of care discussed. EGD and colonoscopy is planned for tomorrow.
[2017-06-04] MEDS ORDERED: PROTONIX IV SCH (12:00)
[2017-06-04] MEDS ORDERED: GOLYTELY PO ONE (13:00)
--- NOTE | 2017-06-04 13:11 | Progress Note ---
Assessment and Plan Assessment and plan: 71-year-old male was admitted yesterday for anemia secondary to GI bleed GI bleed - Patient is on pantoprazole, GI was consulted and is going to do EGD and colonoscopy tomorrow morning. - No active bleeding - Patient said he has been taking ibuprofen 2 times a day. Acute blood loss anemia - Patient was transfused 1 unit of blood, symptoms of dizziness and shortness of breath subsided DVT prophylaxis - SCDs Dispositio - will have EGD and colonoscopy tomorrow. N History Interval history: Patient was seen and vomited this morning, chest pain, shortness of breath and dizziness subsided. Patient didn't have any active bleeding. Hospitalist Physical - Physical exam Narrative exam: Not in cardiopulmonary distress. The patient is obese. Vital signs as documented. Head exam is unremarkable. No scleral icterus . Neck is without jugular venous distension, thyromegaly, or carotid bruits. Lungs are clear to auscultation. Cardiac exam reveals regular rate and Rhythm. First and second heart sounds normal. No murmurs, rubs or gallops. Abdominal exam reveals normal bowel sounds, no masses, no organomegaly and no aortic enlargement. Extremities are nonedematous and both femoral and pedal pulses are normal. PARLOR CHAPERONE: Alert and oriented 3. No focal weakness. - Constitutional Vitals: Temp Pulse Resp BP Pulse Ox 98.5 F 82 18 115/75 97 06/04/17 08:25 06/04/17 10:00 06/04/17 10:22 06/04/17 08:28 06/04/17 10:00 General appearance: Present: no acute distress, well-nourished Results - Labs CBC & Chem 7: 06/04/17 09:48 06/04/17 09:48 Labs: Laboratory Last Values WBC 6.7 K/mm3 (4.5-11.0) 06/04/17 09:48 RBC 3.94 M/mm3 (3.65-5.03) 06/04/17 09:48 Hgb 7.9 gm/dl (11.8-15.2) L 06/04/17 09:48 Hct 26.7 % (35.5-45.6) L 06/04/17 09:48 MCV 68 fl (84-94) L 06/04/17 09:48 MCH 20 pg (28-32) L 06/04/17 09:48 MCHC 30 % (32-34) L 06/04/17 09:48 RDW 18.7 % (13.2-15.2) H 06/04/17 09:48 Plt Count 252 K/mm3 (140-440) 06/04/17 09:48 Lymph % (Auto) 26.7 % (13.4-35.0) 06/04/17 09:48 [place] % (Auto) 8.5 % (0.0-7.3) H 06/04/17 09:48 Eos % (Auto) 2.0 % (0.0-4.3) 06/04/17 09:48 Baso % (Auto) 0.7 % (0.0-1.8) 06/04/17 09:48 Lymph # 1.8 K/mm3 (1.2-5.4) 06/04/17 09:48 [place] # 0.6 K/mm3 (0.0-0.8) 06/04/17 09:48 Eos # 0.1 K/mm3 (0.0-0.4) 06/04/17 09:48 Baso # 0.0 K/mm3 (0.0-0.1) 06/04/17 09:48 Seg Neutrophils % 62.1 % (40.0-70.0) 06/04/17 09:48 Seg Neutrophils # 4.1 K/mm3 (1.8-7.7) 06/04/17 09:48 PT 13.8 Sec. (12.2-14.9) 06/03/17 10:58 INR 1.01 (0.87-1.13) 06/03/17 10:58 APTT 30.9 Sec. (24.2-36.6) 06/03/17 10:58 Sodium 137 mmol/L (137-145) 06/04/17 09:48 Potassium 4.2 mmol/L (3.6-5.0) 06/04/17 09:48 Chloride 100.2 mmol/L (98-107) 06/04/17 09:48 Carbon Dioxide 24 mmol/L (22-30) 06/04/17 09:48 Anion Gap 17 mmol/L 06/04/17 09:48 BUN 19 mg/dL (9-20) 06/04/17 09:48 Creatinine 0.8 mg/dL (0.8-1.5) 06/04/17 09:48 Estimated GFR > 60 ml/min 06/04/17 09:48 BUN/Creatinine Ratio 24 % 06/04/17 09:48 Glucose 193 mg/dL (75-100) H 06/04/17 09:48 POC Glucose 203 (70-105) H 06/04/17 12:07 Hemoglobin A1c 10.0 % (4-6) H 06/03/17 22:01 Calcium 8.1 mg/dL (8.4-10.2) L 06/04/17 09:48 Total Bilirubin 0.70 mg/dL (0.1-1.2) 06/04/17 09:48 AST 28 units/L (5-40) 06/04/17 09:48 ALT 21 units/L (7-56) 06/04/17 09:48 Alkaline Phosphatase 60 units/L (35-129) 06/04/17 09:48 Total Protein 5.8 g/dL (6.3-8.2) L 06/04/17 09:48 Albumin 3.8 g/dL (3.9-5) L 06/04/17 09:48 Albumin/Globulin Ratio 1.9 % 06/04/17 09:48 Lipase 34 units/L (13-60) 06/03/17 10:58 Blood Type O POSITIVE 06/03/17 10:58 Antibody Screen Negative 06/03/17 10:58 Crossmatch See Detail 06/03/17 10:58
[2017-06-04] MEDS ORDERED: D50W (25GM) Syringe IV PRN (13:14)
[2017-06-04 13:19] LABS: Hematocrit 30.2 % (35.5-45.6); Hemoglobin 9.2 gm/dl (11.8-15.2)
[2017-06-04] MEDS ORDERED: LANTUS SUB-Q SCH (22:00)
[2017-06-05] MEDS: HumaLOG SUB-Q SCH ×3 (00:24→13:15)
[2017-06-05] MEDS: DILAUDID IV PRN (03:30)
[2017-06-05 05:12] LABS: Basophils % (Auto) 0.6 % (0.0-1.8); Eosinophils # (Auto) 0.1 K/mm3 (0.0-0.4); Eosinophils % (Auto) 2.1 % (0.0-4.3); Hematocrit 26.1 % (35.5-45.6); Lymphocytes # (Auto) 1.6 K/mm3 (1.2-5.4); Lymphocytes % (Auto) 24.2 % (13.4-35.0); Mean Corpuscular HGB Conc 31 % (32-34); Monocytes # (Auto) 0.7 K/mm3 (0.0-0.8); Monocytes % (Auto) 9.7 % (0.0-7.3); Platelet Count 241 K/mm3 (140-440); Red Blood Count 3.95 M/mm3 (3.65-5.03); Red Cell Distribution Width 18.7 % (13.2-15.2)
[2017-06-05 05:21] LABS: Mean Corpuscular Hemoglobin 20 pg (28-32); Mean Corpuscular Volume 66 fl (84-94)
--- NOTE | 2017-06-05 07:32 | Progress Note ---
Assessment and Plan Assessment and plan: 71-year-old male was admitted yesterday for anemia secondary to GI bleed GI bleed - Patient is on pantoprazole, GI was consulted and is going to do EGD and colonoscopy this morning. - No active bleeding - Patient said he has been taking ibuprofen 2 times a day. Acute blood loss anemia - Patient was transfused 1 unit of blood, symptoms of dizziness and shortness of breath subsided - hemoglobin is 8 this morning, will follow H&H Diabetes mellitus type 2 - On sliding insulin DVT prophylaxis - SCDs Disposition - will have EGD and colonoscopy this morning. History Interval history: Patient was seen and vomited this morning, chest pain, shortness of breath and dizziness subsided. Patient didn't have any active bleeding. Hospitalist Physical - Physical exam Narrative exam: Not in cardiopulmonary distress. The patient is obese. Vital signs as documented. Head exam is unremarkable. No scleral icterus . Neck is without jugular venous distension, thyromegaly, or carotid bruits. Lungs are clear to auscultation. Cardiac exam reveals regular rate and Rhythm. First and second heart sounds normal. No murmurs, rubs or gallops. Abdominal exam reveals normal bowel sounds, no masses, no organomegaly and no aortic enlargement. Extremities are nonedematous and both femoral and pedal pulses are normal. FOLDER OPERATOR: Alert and oriented 3. No focal weakness. - Constitutional Vitals: Temp Pulse Resp BP Pulse Ox 97.9 F 78 20 130/73 95 06/05/17 03:32 06/05/17 03:32 06/05/17 03:32 06/05/17 03:32 06/05/17 03:32 General appearance: Present: no acute distress, well-nourished Results - Labs CBC & Chem 7: 06/05/17 04:54 06/04/17 09:48 Labs: Laboratory Last Values WBC 6.7 K/mm3 (4.5-11.0) 06/05/17 04:54 RBC 3.95 M/mm3 (3.65-5.03) 06/05/17 04:54 Hgb 8.0 gm/dl (11.8-15.2) L 06/05/17 04:54 Hct 26.1 % (35.5-45.6) L 06/05/17 04:54 MCV 66 fl (84-94) L 06/05/17 04:54 MCH 20 pg (28-32) L 06/05/17 04:54 MCHC 31 % (32-34) L 06/05/17 04:54 RDW 18.7 % (13.2-15.2) H 06/05/17 04:54 Plt Count 241 K/mm3 (140-440) 06/05/17 04:54 Lymph % (Auto) 24.2 % (13.4-35.0) 06/05/17 04:54 [place] % (Auto) 9.7 % (0.0-7.3) H 06/05/17 04:54 Eos % (Auto) 2.1 % (0.0-4.3) 06/05/17 04:54 Baso % (Auto) 0.6 % (0.0-1.8) 06/05/17 04:54 Lymph # 1.6 K/mm3 (1.2-5.4) 06/05/17 04:54 [place] # 0.7 K/mm3 (0.0-0.8) 06/05/17 04:54 Eos # 0.1 K/mm3 (0.0-0.4) 06/05/17 04:54 Baso # 0.0 K/mm3 (0.0-0.1) 06/05/17 04:54 Seg Neutrophils % 63.4 % (40.0-70.0) 06/05/17 04:54 Seg Neutrophils # 4.3 K/mm3 (1.8-7.7) 06/05/17 04:54 PT 13.8 Sec. (12.2-14.9) 06/03/17 10:58 INR 1.01 (0.87-1.13) 06/03/17 10:58 APTT 30.9 Sec. (24.2-36.6) 06/03/17 10:58 Sodium 137 mmol/L (137-145) 06/04/17 09:48 Potassium 4.2 mmol/L (3.6-5.0) 06/04/17 09:48 Chloride 100.2 mmol/L (98-107) 06/04/17 09:48 Carbon Dioxide 24 mmol/L (22-30) 06/04/17 09:48 Anion Gap 17 mmol/L 06/04/17 09:48 BUN 19 mg/dL (9-20) 06/04/17 09:48 Creatinine 0.8 mg/dL (0.8-1.5) 06/04/17 09:48 Estimated GFR > 60 ml/min 06/04/17 09:48 BUN/Creatinine Ratio 24 % 06/04/17 09:48 Glucose 193 mg/dL (75-100) H 06/04/17 09:48 POC Glucose 176 (70-105) H 06/05/17 06:35 Hemoglobin A1c 10.0 % (4-6) H 06/03/17 22:01 Calcium 8.1 mg/dL (8.4-10.2) L 06/04/17 09:48 Ferritin 6.6 ng/mL (13.0-400.0) L 06/05/17 04:54 Total Bilirubin 0.70 mg/dL (0.1-1.2) 06/04/17 09:48 AST 28 units/L (5-40) 06/04/17 09:48 ALT 21 units/L (7-56) 06/04/17 09:48 Alkaline Phosphatase 60 units/L (35-129) 06/04/17 09:48 Total Protein 5.8 g/dL (6.3-8.2) L 06/04/17 09:48 Albumin 3.8 g/dL (3.9-5) L 06/04/17 09:48 Albumin/Globulin Ratio 1.9 % 06/04/17 09:48 Lipase 34 units/L (13-60) 06/03/17 10:58 Blood Type O POSITIVE 06/03/17 10:58 Antibody Screen Negative 06/03/17 10:58 Crossmatch See Detail 06/03/17 10:58
[2017-06-05 08:29] LABS: Iron 10 ug/dL (49-181); Total Iron Binding Capacity 361 mcg/dL (250-450)
[2017-06-05] MEDS: SODIUM CHLORIDE FLUSH SYRINGE 10 ML IV SCH (09:00)
[2017-06-05] MEDS ORDERED: WATER FOR IRRIG STERILE IR ONE (09:55)
[2017-06-05] MEDS ORDERED: WATER FOR IRRIG STERILE ONE (09:55)
[2017-06-05] MEDS ORDERED: PROTONIX PO SCH (10:00)
--- NOTE | 2017-06-05 10:29 | Anesthesia Day of Surgery ---
Anesthesia Day of Surgery - Day of Surgery Patient Examined: Yes Patient H&P Reviewed: Yes Patient is NPO: Yes
--- NOTE | 2017-06-05 10:29 | Anesthesia Consultation ---
Anesthesia Consult and Med Hx Date of service: 06/05/17 - Airway Anesthetic Teeth Evaluation: Poor (multiple missing) ROM Head & Neck: Adequate Mental/Hyoid Distance: Adequate Mallampati Class: Class III Intubation Access Assessment: Possibly Difficult - Pulmonary Exam CTA: Yes - Cardiac Exam Cardiac Exam: RRR - Pre-Operative Health Status ASA Pre-Surgery Classification: ASA3 Proposed Anesthetic Plan: MAC - Cardiovascular System Hx Hypertension: Yes Hx Coronary Artery Disease: Yes (s/p CABG) - Endocrine Hx Non-Insulin Dependent Diabetes: Yes - Hematic Hx Anemia: No Hx Sickle Cell Disease: No - Other Systems Hx Substance Use: No Hx Cancer: No Hx Obesity: Yes
[2017-06-05] MEDS ORDERED: DIPRIVAN 10 MG/ML IV ONE ×2 (10:45)
--- NOTE | 2017-06-05 11:25 | Operative Report ---
Operative Report Operative Report: Date of procedure: 06/05/2017 Procedure: Esophagogastroduodenoscopy with antral biopsies and biopsies of the esophagogastric junction Preprocedure diagnosis: Severe Iron deficiency anemia requiring transfusion. Post procedure diagnosis: Mild erosive antral gastritis. Distal esophageal reflux, possible short segment Newell's. Endoscopist: Dr. Byrnes Anesthesia: Monitored anesthesia care per anesthesia department Medications: Propofol per anesthesia Estimated blood loss: 0 After careful discussion of the nature and purpose of the procedure as well as details the technique risks benefits and alternatives consent was obtained. The patient was placed in the left lateral decubitus position and medicated per anesthesia. The tip of the Synack EQ 570 video scope was passed per orum under direct vision into the esophagus and advanced into the stomach and descending duodenum. The descending duodenum the duodenal bulb and pylorus were symmetrical and normal. The scope was withdrawn into the stomach and the stomach then gently insufflated with air. The antrum revealed a few punctate erosions. No deep ulcers were present. Multiple biopsies were taken for possible H. pylori infection. The stomach was further insufflated and the scope was then retroflexed and partially withdrawn. The cardia, fundus, and body of the stomach were within normal limits and easily distensible.The scope was then withdrawn in the forward position. The esophagogastric junction was at 40 cm. There was irregularity of the Z line and mild inflammation present in the distal esophagus. Biopsies were taken to assess for possible short segment Newell's. The esophageal body was otherwise normal throughout. The procedure was was well tolerated and the patient was observed in recovery. Impressions: Mild erosive antral gastritis without deep ulcers. Mild distal esophagitis, possible short segment Newell's. Plan: Await pathology. Further evaluation with colonoscopy. If colonoscopy is negative pill camera should be considered. Electronically signed: Jorge Byrnes MD
--- NOTE | 2017-06-05 11:27 | Operative Report ---
Operative Report Operative Report: Date of procedure: 06/05/2017 Preprocedure diagnosis: Severe iron deficiency anemia requiring transfusion. Post procedure diagnosis: Scattered left colon diverticula, otherwise normal Procedure: Colonoscopy to the cecum Endoscopist: Dr. Byrnes Anesthesia: Monitored anesthesia care per anesthesia department Estimated blood loss: 0 Medications: Monitored anesthesia care. See separate report by anesthesia for details. After careful discussion of the nature and purpose of the procedure as well as details of the technique risks benefits and alternatives the patient gave consent. Please see recent history and physical from the office. The patient was placed in the left lateral decubitus position and medicated per anesthesia. A rectal exam was performed sphincter tone was normal there were no masses palpable. The [employer] 570 scope was passed transanally and advanced under continuous direct vision without difficulty to the cecum. The colon was well prepared. The cecum was normal. The ascending colon was normal and on forward and retroflexed views. The transverse colon was normal. There were a few scattered diverticula in th, descending colon and sigmoid colon. The rectum was normal on forward and retroflexed views. The procedure was well-tolerated overall and the patient was observed in recovery. Conclusions: Few left colon diverticula. No findings to explain iron deficiency anemia.. Plan: Iron supplementation. Outpatient PillCam study. Diet will be advanced and I will sign off and see this patient as an outpatient (versus follow-up at the [facility]). Signed electronically: Jorge Byrnes M.D.
[2017-06-05 12:02] VITALS: BP 143/76
--- NOTE | 2017-06-05 13:30 | Post Anesthesia Evaluation ---
- Post Anesthesia Evaluation Patient Participated: Yes Airway Patent: Yes Stable Respiratory Function: Yes Nausea/Vomiting: No Temp > 96.8F: Yes Pain Manageable: Yes Adequeate Hydration: Yes Anesthesia Complications: No
--- NOTE | 2017-06-05 13:43 | Discharge Summary ---
Providers - Providers Date of Admission: 06/03/17 17:00 Date of discharge: 06/05/17 Attending physician: AQUILINO VERNON MD 06/03/17 17:24 Consult to Physician [CONS] Urgent Comment: BONG Consulting Provider: DEBBIE QUAN Physician Instructions: CALLED @0830 (LUPE) Reason For Exam: guaic + stool, anemia Primary care physician: CAB STATION ATTENDANT Hospitalization Reason for admission: Symptomatic anemia Condition: Stable Procedures: EGD /colonoscopy Disposition: TO HOME OR SELFCARE Time spent for discharge: 31 minutes - Discharge Diagnoses (1) Acute blood loss anemia Status: Acute (2) Generalized weakness Status: Acute (3) Guaiac positive stools Status: Acute (4) S/P CABG x 1 Status: Chronic Core Measure Documentation - Palliative Care Palliative Care/ Comfort Measures: Not Applicable - Core Measures Any of the following diagnoses?: history only (CAD) Exam - Physical Exam Narrative exam: Not in cardiopulmonary distress. The patient is obese. Vital signs as documented. Head exam is unremarkable. No scleral icterus . Neck is without jugular venous distension, thyromegaly, or carotid bruits. Lungs are clear to auscultation. Cardiac exam reveals regular rate and Rhythm. First and second heart sounds normal. No murmurs, rubs or gallops. Abdominal exam reveals normal bowel sounds, no masses, no organomegaly and no aortic enlargement. Extremities are nonedematous and both femoral and pedal pulses are normal. COYOTE HUNTER: Alert and oriented 3. No focal weakness. - Constitutional Vitals: Temp Pulse Resp BP Pulse Ox 97.2 F L 79 16 143/76 95 06/05/17 11:14 06/05/17 11:29 06/05/17 11:29 06/05/17 11:29 06/05/17 11:29 Plan Activity: no restrictions Weight Bearing Status: Full Weight Bearing Diet: low cholesterol, diabetic Additional Instructions: Follow up at [facility] [place] in 1-2 weeks Follow up with: PRIMARY MD DARLING [Primary Care Provider] - 3-5 Days Prescriptions: Ferrous Sulfate [Feosol 325 MG tab] 325 mg PO BID #60 tablet Pantoprazole [Protonix TAB] 40 mg PO DAILY #30 tablet
== END 2017-06-05 15:30 | disposition home or self-care (01) | DRG 391 ==
LOC: ED 10:17 → 2B-ACE 17:00
PROVIDERS: ADMIT Internal Medicine; ATTEND Internal Medicine
PROC: 30233N1 Transfusion of Nonautologous Red Blood Cells into Peripheral Vein, Percutaneous Approach (ICD-10-PCS; 2017-06-04)
PROC: 0DJD8ZZ Inspection of Lower Intestinal Tract, Via Natural or Artificial Opening Endoscopic (ICD-10-PCS; principal; 2017-06-05)
PROC: 0DB48ZX Excision of Esophagogastric Junction, Via Natural or Artificial Opening Endoscopic, Diagnostic (ICD-10-PCS; 2017-06-05)
PROC: 0DB78ZX Excision of Stomach, Pylorus, Via Natural or Artificial Opening Endoscopic, Diagnostic (ICD-10-PCS; 2017-06-05)
DX: K21.0 Gastro-esophageal reflux disease with esophagitis (principal); K29.71 Gastritis, unspecified, with bleeding; D62 Acute posthemorrhagic anemia; E11.9 Type 2 diabetes mellitus without complications; Z79.82 Long term (current) use of aspirin; Z79.84 Long term (current) use of oral hypoglycemic drugs; Z95.1 Presence of aortocoronary bypass graft; Z87.891 Personal history of nicotine dependence; I25.10 Atherosclerotic heart disease of native coronary artery without angina pectoris; I10 Essential (primary) hypertension; E78.5 Hyperlipidemia, unspecified; Z82.49 Family history of ischemic heart disease and other diseases of the circulatory system
CPT/HCPCS: 36415; 80053; 82728; 82962; 83036; 83550; 83690; 85014; 85018; 85025; 85610; 85730; 86850; 86900; 86901; 86920; 88305; 88312; 88342; 93005; 93010; C9113; J1170; J1815; J2704; J7030; J7040; J7050; P9016

== ENCOUNTER 2018-04-02 02:31 | Inpatient (IN) | payer MEDICARE ==
[2018-04-02] MEDS ORDERED: ASPIRIN PO ONE (02:51)
[2018-04-02 03:14] LABS: Bilirubin,Urine NEG (Negative); Blood,Urine NEG (Negative); Color,Urine Yellow (Yellow); Hyaline Casts,Urine 15 /LPF; Mucus,Urine 2+ /HPF; Urobilinogen,Urine < 2.0 mg/dL (<2.0)
[2018-04-02 03:58] LABS: Basophils # (Auto) 0.1 K/mm3 (0.0-0.1); Basophils % (Auto) 0.5 % (0.0-1.8); Eosinophils # (Auto) 0.2 K/mm3 (0.0-0.4); Eosinophils % (Auto) 1.5 % (0.0-4.3); Hemoglobin 16.1 gm/dl (11.8-15.2); Lymphocytes # (Auto) 2.3 K/mm3 (1.2-5.4); Lymphocytes % (Auto) 22.6 % (13.4-35.0); Mean Corpuscular HGB Conc 34 % (32-34); Mean Corpuscular Volume 89 fl (84-94); Monocytes # (Auto) 0.7 K/mm3 (0.0-0.8); Platelet Count 301 K/mm3 (140-440); Red Blood Count 5.41 M/mm3 (3.65-5.03)
--- NOTE | 2018-04-02 04:02 | Emergency Department Report ---
ED Chest Pain HPI - General Chief Complaint: Chest Pain Stated Complaint: CHEST PAINS NV KIDNEY PAIN Time Seen by Provider: 04/02/18 03:42 Source: patient Mode of arrival: Ambulatory Limitations: No Limitations - History of Present Illness Initial Comments: 72-year-old male who presents to ED with complaint of chest pain. Patient reports substernal chest bleeding, achy in nature. States pain has been intermittent for 2 weeks, lasting several hours at a time when it comes. Denies shortness of breath, nausea, leg swelling. Patient states he was trying to wait until his appointment at the [facility] which is in another 2 weeks however patient reports the pain became worse so he decided to come to the ER. Reports right flank pain. Patient denies fever, hematuria, dysuria, urinary frequency. States flank pain beginning yesterday. 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 The patient is a nonsmoker. MD Complaint: chest pain -: week(s) (2) Onset: during rest, during exertion Pain Location: substernal Pain Radiation: none Severity: moderate Severity scale (0 -10): 4 Quality: aching Consistency: intermittent Improves With: nothing Worsens With: nothing re: denies: nausea, vomting, diaphoresis, dyspnea Other Symptoms: denies: cough, fever, leg swelling - Related Data Previous Rx's Medication Instructions Recorded Last Taken Type Ferrous Sulfate [Feosol 325 MG tab] 325 mg PO BID #60 tablet 06/05/17 Unknown Rx Pantoprazole [Protonix TAB] 40 mg PO DAILY #30 tablet 06/05/17 Unknown Rx traMADol [Ultram 50 MG tab] 100 mg PO BID #30 tablet 01/28/18 Unknown Rx Allergies Allergy/AdvReac Type Severity Reaction Status Date / Time No Known Allergies Allergy Verified 04/26/15 11:15 Heart Score - HEART Score History: Slightly suspicious EKG: Normal Age: > 65 Risk factors: > 3 risk factors or hx of atherosclerotic disease Troponin: < normal limit HEART Score: 4 - Critical Actions Critical Actions: 4-6 pts:12-16.6% risk of adverse cardiac event. Should be admitted ED Review of Systems ROS: Stated complaint: CHEST PAINS NV KIDNEY PAIN Other details as noted in HPI Comment: All other systems reviewed and negative Constitutional: denies: chills, fever Respiratory: denies: shortness of breath Cardiovascular: chest pain Gastrointestinal: denies: nausea, vomiting Musculoskeletal: other (denies leg swelling) ED Past Medical Hx - Past Medical History Hx Hypertension: Yes Hx Diabetes: Yes Hx Sickle Cell Disease: No Hx Kidney Stones: Yes (LEFT) Hx HIV: No Additional medical history: DIVERTICULITIS, ANEMIA AND BLOOD TRANSFUSION - Surgical History Hx Open Heart Surgery: Yes Additional Surgical History: LEFT EAR SURGERY. CABG X2. 02/26/2015. [facility]. Cardiac Cath 02/21/2015 here - Social History Smoking Status: Never Smoker Substance Use Type: None - Medications Home Medications: Home Medications Medication Instructions Recorded Confirmed Last Taken Type Ferrous Sulfate [Feosol 325 MG tab] 325 mg PO BID #60 tablet 06/05/17 Unknown Rx Pantoprazole [Protonix TAB] 40 mg PO DAILY #30 tablet 06/05/17 Unknown Rx traMADol [Ultram 50 MG tab] 100 mg PO BID #30 tablet 01/28/18 Unknown Rx ED Physical Exam - General Limitations: No Limitations General appearance: alert, in no apparent distress - Head Head exam: Present: atraumatic, normocephalic - Eye Eye exam: Present: normal appearance - ENT ENT exam: Present: mucous membranes moist - Neck Neck exam: Present: normal inspection - Respiratory Respiratory exam: Present: normal lung sounds bilaterally. Absent: respiratory distress - Cardiovascular Cardiovascular Exam: Present: regular rate, normal rhythm - GI/Abdominal GI/Abdominal exam: Present: soft. Absent: distended, tenderness - Extremities Exam Extremities exam: Present: normal inspection. Absent: pedal edema, calf tenderness - Back Exam Back exam: Absent: CVA tenderness (R), CVA tenderness (L) - Neurological Exam Neurological exam: Present: alert, oriented X3 - Psychiatric Psychiatric exam: Present: normal affect, normal mood - Skin Skin exam: Present: warm, dry, intact, normal color ED Course Vital Signs 04/02/18 04/02/18 04/02/18 02:37 02:46 03:42 Temperature 97.8 F 97.8 F Pulse Rate 75 75 73 Respiratory 16 16 22 Rate Blood Pressure 128/80 128/88 O2 Sat by Pulse 97 97 Oximetry 04/02/18 04/02/18 04/02/18 03:46 04:00 04:15 Temperature Pulse Rate 72 62 64 Respiratory 18 14 18 Rate Blood Pressure 134/79 134/79 121/67 O2 Sat by Pulse Oximetry 04/02/18 04:30 Temperature Pulse Rate 63 Respiratory 19 Rate Blood Pressure 129/63 O2 Sat by Pulse Oximetry LEVI score - Levi Score Age > 65: (1) Yes Aspirin use within the Past 7 Days: (0) No 3 or more CAD Risk Factors: (0) No 2 or more Angina events in past 24 hrs: (1) Yes Known CAD with more than 50% Stenosis: (0) No Elevated Cardiac Markers: (0) No ST Deviation Greater than 0.5mm: (0) No LEVI Score: 2 ED Medical Decision Making - Lab Data Result diagrams: 04/02/18 03:29 04/02/18 03:29 - EKG Data -: EKG Interpreted by Me EKG shows normal: sinus rhythm, axis, intervals, QRS complexes, ST-T waves Rate: normal - EKG Data Interpretation: no acute changes - Radiology Data Radiology results: report reviewed, image reviewed - Differential Diagnosis PE, ACS, pneumonia, pyelonephritis Critical care attestation.: If time is entered above; I have spent that time in minutes in the direct care of this critically ill patient, excluding procedure time. ED Disposition Clinical Impression: Chest pain Disposition: DC-09 OP ADMIT IP TO THIS HOSP Is pt being admited?: Yes Condition: Stable Instructions: Chest Pain (ED) Referrals: RIKY REDDY DO [Primary Care Provider] - 3-5 Days Time of Disposition: 05:18
[2018-04-02 04:16] LABS: BUN/Creatinine Ratio 14; Blood Urea Nitrogen 13 mg/dL (9-20); Calcium 9.3 mg/dL (8.4-10.2); Hemolysis Index 104
--- NOTE | 2018-04-02 04:18 | XRay Report ---
FINAL REPORT EXAM: XR CHEST 1V AP HISTORY: chest pain TECHNIQUE: AP portable view(s) of the chest obtained. PRIORS: 01/28/2018 FINDINGS: No mediastinal shift. Cardiac silhouette is not enlarged. Overlying sternotomy wires. No pneumothorax , effusion, or focal pulmonary opacity identified. No acute skeletal findings. IMPRESSION: No acute pulmonary finding identified.
[2018-04-02 04:29] LABS: INR 0.98 (0.87-1.13)
[2018-04-02 04:30] LABS: Partial Thromboplastin Time 27.8 Sec. (24.2-36.6)
--- NOTE | 2018-04-02 10:36 | History and Physical Report ---
History of Present Illness Date of examination: 04/02/18 Date of admission: 04/02/18 05:18 Chief complaint: cp History of present illness: 72-year-old male who presents to ED with complaint of chest pain. Patient reports substernal chest bleeding, achy in nature. States pain has been intermittent for 2 weeks, lasting several hours at a time when it comes. He re ports that the chest pain began on 03/20/18. He denies shortness of breath, nausea, leg swelling. Patient states he was trying to wait until his appointment at the [facility] which is in another 2 weeks however patient reports the pain became worse so he decided to come to the ER. Also, in addition to the chest pain, the patient reports right flank pain. Patient denies fever, hematuria, dysuria, urinary frequency. The flank pain beginning yesterday. He states that his flank pain feels similar to his pain that resulted in a kidney stone in 1994. 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 The patient is a nonsmoker. The patient does report the pain is reproducible with palpation. No cough or cold-like symptoms. No headache or visual disturbance. Past History Past Medical History: CAD, diabetes, other (renal stone) Past Surgical History: CABG Social history: no significant social history Family history: no significant family history Medications and Allergies Allergies Allergy/AdvReac Type Severity Reaction Status Date / Time No Known Allergies Allergy Verified 04/26/15 11:15 Home Medications Medication Instructions Recorded Confirmed Last Taken Type Ferrous Sulfate [Feosol 325 MG tab] 325 mg PO BID #60 tablet 06/05/17 Unknown Rx Pantoprazole [Protonix TAB] 40 mg PO DAILY #30 tablet 06/05/17 Unknown Rx traMADol [Ultram 50 MG tab] 100 mg PO BID #30 tablet 01/28/18 Unknown Rx Review of Systems All systems: negative Exam - Constitutional Vitals: Temp Pulse Resp BP Pulse Ox 97.8 F 63 14 138/88 97 04/02/18 02:46 04/02/18 07:45 04/02/18 07:45 04/02/18 07:45 04/02/18 02:46 General appearance: Present: no acute distress, well-nourished - EENT Eyes: Present: PERRL ENT: hearing intact, clear oral mucosa - Neck Neck: Present: supple, normal ROM - Respiratory Respiratory effort: normal Respiratory: bilateral: CTA - Cardiovascular Heart Sounds: Present: S1 & S2. Absent: rub, click - Extremities Extremities: pulses symmetrical, No edema Peripheral Pulses: within normal limits - Abdominal General gastrointestinal: Present: soft, non-tender, non-distended, normal bowel sounds Male genitourinary: Present: normal - Integumentary Integumentary: Present: clear, warm, dry - Musculoskeletal Musculoskeletal: gait normal, strength equal bilaterally - Psychiatric Psychiatric: appropriate mood/affect, intact judgment & insight - Neurologic Neurologic: CNII-XII intact, moves all extremities Results - Labs CBC & Chem 7: 04/02/18 03:29 04/02/18 03:29 Labs: Laboratory Last Values WBC 10.2 K/mm3 (4.5-11.0) 04/02/18 03:29 RBC 5.41 M/mm3 (3.65-5.03) H 04/02/18 03:29 Hgb 16.1 gm/dl (11.8-15.2) H 04/02/18 03:29 Hct 48.0 % (35.5-45.6) H 04/02/18 03:29 MCV 89 fl (84-94) 04/02/18 03:29 MCH 30 pg (28-32) 04/02/18 03:29 MCHC 34 % (32-34) 04/02/18 03:29 RDW 13.0 % (13.2-15.2) L 04/02/18 03:29 Plt Count 301 K/mm3 (140-440) 04/02/18 03:29 Lymph % (Auto) 22.6 % (13.4-35.0) 04/02/18 03:29 [place] % (Auto) 7.0 % (0.0-7.3) 04/02/18 03:29 Eos % (Auto) 1.5 % (0.0-4.3) 04/02/18 03:29 Baso % (Auto) 0.5 % (0.0-1.8) 04/02/18 03:29 Lymph # 2.3 K/mm3 (1.2-5.4) 04/02/18 03:29 [place] # 0.7 K/mm3 (0.0-0.8) 04/02/18 03:29 Eos # 0.2 K/mm3 (0.0-0.4) 04/02/18 03:29 Baso # 0.1 K/mm3 (0.0-0.1) 04/02/18 03:29 Seg Neutrophils % 68.4 % (40.0-70.0) 04/02/18 03:29 Seg Neutrophils # 7.0 K/mm3 (1.8-7.7) 04/02/18 03:29 PT 13.4 Sec. (12.2-14.9) 04/02/18 04:05 INR 0.98 (0.87-1.13) 04/02/18 04:05 APTT 27.8 Sec. (24.2-36.6) 04/02/18 04:05 D-Dimer 174.03 ng/mlDDU (0-234) 04/02/18 04:05 Sodium 139 mmol/L (137-145) 04/02/18 03:29 Potassium 4.5 mmol/L (3.6-5.0) 04/02/18 03:29 Chloride 98.0 mmol/L (98-107) 04/02/18 03:29 Carbon Dioxide 24 mmol/L (22-30) 04/02/18 03:29 Anion Gap 22 mmol/L 04/02/18 03:29 BUN 13 mg/dL (9-20) 04/02/18 03:29 Creatinine 0.9 mg/dL (0.8-1.5) 04/02/18 03:29 Estimated GFR > 60 ml/min 04/02/18 03:29 BUN/Creatinine Ratio 14 % 04/02/18 03:29 Glucose 252 mg/dL (75-100) H 04/02/18 03:29 POC Glucose 218 (70-105) H 04/02/18 02:57 Calcium 9.3 mg/dL (8.4-10.2) 04/02/18 03:29 Troponin T < 0.010 ng/mL (0.00-0.029) 04/02/18 05:51 Urine Color Yellow (Yellow) 04/02/18 02:59 Urine Turbidity Clear (Clear) 04/02/18 02:59 Urine pH 7.0 (5.0-7.0) 04/02/18 02:59 Ur Specific [place] 1.018 (1.003-1.030) 04/02/18 02:59 Urine Protein 100 mg/dl mg/dL (Negative) 04/02/18 02:59 Urine Glucose (UA) Neg mg/dL (Negative) 04/02/18 02:59 Urine Ketones Tr mg/dL (Negative) 04/02/18 02:59 Urine Blood Neg (Negative) 04/02/18 02:59 Urine Nitrite Neg (Negative) 04/02/18 02:59 Urine Bilirubin Neg (Negative) 04/02/18 02:59 Urine Urobilinogen < 2.0 mg/dL (<2.0) 04/02/18 02:59 Ur Leukocyte Esterase Neg (Negative) 04/02/18 02:59 Urine WBC (Auto) 1.0 /HPF (0.0-6.0) 04/02/18 02:59 Urine RBC (Auto) 3.0 /HPF (0.0-6.0) 04/02/18 02:59 U Epithel Cells (Auto) < 1.0 /HPF (0-13.0) 04/02/18 02:59 Hyaline Casts 15 /LPF 04/02/18 02:59 Urine Mucus 2+ /HPF 04/02/18 02:59 Assessment and Plan Assessment and plan: Chest pain. Patient will be placed on the chest pain pathway. We will follow- up Lexiscan and echocardiogram. Cardiology consultation. Hypertension. Continue antihypertensive medications. Diabetes mellitus type 2. Continue Accu-Cheks and sliding scale insulin. History of diverticulitis.
[2018-04-02] MEDS ORDERED: ZOFRAN IV PRN (10:38)
[2018-04-02] MEDS ORDERED: SODIUM CHLORIDE FLUSH SYRINGE 10 ML IV PRN ×2 (10:38)
[2018-04-02] MEDS ORDERED: D50W (25GM) Syringe IV PRN (10:42)
--- NOTE | 2018-04-02 11:33 | Event Note ---
Date: 04/02/18 Detailed cardiology consultation dictated. Pt presented with chest pain. Obtain echo and plan for lexiscan MPI stress test in AM. NPO after MN. Tiff CHRISTIAN NP / DR. Evelyn WARD
[2018-04-02 11:46] LABS: BUN/Creatinine Ratio 21; Blood Urea Nitrogen 15 mg/dL (9-20); Hemolysis Index 14
[2018-04-02] MEDS ORDERED: ECOTRIN PO SCH (12:00)
[2018-04-02 12:12] LABS: Basophils % (Auto) 0.5 % (0.0-1.8); Eosinophils # (Auto) 0.1 K/mm3 (0.0-0.4); Eosinophils % (Auto) 1.6 % (0.0-4.3); Hematocrit 45.3 % (35.5-45.6); Hemoglobin 15.2 gm/dl (11.8-15.2); Lymphocytes # (Auto) 2.1 K/mm3 (1.2-5.4); Lymphocytes % (Auto) 26.3 % (13.4-35.0); Mean Corpuscular HGB Conc 33 % (32-34); Mean Corpuscular Volume 90 fl (84-94); Monocytes # (Auto) 0.7 K/mm3 (0.0-0.8); Monocytes % (Auto) 9.3 % (0.0-7.3); Platelet Count 242 K/mm3 (140-440); Red Blood Count 5.01 M/mm3 (3.65-5.03); Red Cell Distribution Width 13.4 % (13.2-15.2)
[2018-04-02 13:13] LABS: Bacteria,Urine 1+ /HPF (Negative); Bilirubin,Urine NEG (Negative); Blood,Urine NEG (Negative); Color,Urine Yellow (Yellow); Mucus,Urine 2+ /HPF; Urobilinogen,Urine < 2.0 mg/dL (<2.0); WBC,Urine < 1.0 /HPF (0.0-6.0)
[2018-04-02] MEDS: HumaLOG SUB-Q SCH ×3 (13:27→23:28)
--- NOTE | 2018-04-02 14:15 | Consultation ---
CARDIOLOGY CONSULTATION REFERRING PHYSICIAN: Juventino Bautista MD PRIMARY CARE PHYSICIAN: [facility] REASON FOR CONSULTATION: Opinion regarding chest pain. HISTORY OF PRESENT ILLNESS: The patient is a pleasant 72-year-old gentleman, history of coronary artery disease, diabetes, status post coronary bypass surgery in [address] Acuna at [facility]. He presents with chest pain on and off for 2 weeks. Describes flank pain as well, has not seen a engraver machine in years. Unclear if he has been compliant with his medications. Currently seen on telemetry chest pain has improved. No syncope, presyncope, no abdominal pain, no hematochezia, melena, hemoptysis, hematemesis. No syncope, presyncope. No palpitations. No fever, chills, nausea or vomiting. No headache or visual disturbance. PAST MEDICAL HISTORY: As aforementioned. PAST SURGICAL HISTORY: Coronary bypass surgery. SOCIAL HISTORY: Nonsmoker, nondrinker. FAMILY HISTORY: No family history of premature heart disease. ALLERGIES: No known drug, food, or environmental allergies. MEDICATIONS: Inpatient and outpatient medications reviewed. PHYSICAL EXAMINATION: VITAL SIGNS: Telemetry reveals sinus rhythm, no dysrhythmias. Heart rate in the 60s and 70s, blood pressure is 130/80, he is afebrile. O2 sat is 98% on room air. GENERAL: This is a middle-aged gentleman, in no apparent distress, oriented x 3. HEENT: Sclerae icteric, PERRLA. NECK: Supple, no masses, no JVD. CHEST: Clear to auscultation bilaterally. Good air movement. CARDIOVASCULAR: Regular rhythm, S1, S2. ABDOMEN: Soft, nontender, nondistended. Normoactive bowel sounds in 4 quadrants. No mass or bruits. EXTREMITIES: No cyanosis, clubbing, edema. Good peripheral pulses. SKIN: Intact. No rashes. LABORATORY DATA: EKG shows normal sinus rhythm, nonspecific ST-T wave changes. No acute ST segment shift. Chest x-ray shows no acute findings. Hemoglobin 16.1, hematocrit 48, WBC is 10.2, platelets 301. D-dimer is within normal range. First troponin is negative. ASSESSMENT: In summary, the patient is a pleasant 72-year-old gentleman here with chest pain with typical and atypical features as well as flank pain. At this point, his chest pain resolved. Cardiac enzymes negative x 1. EKG is nonacute. History of bypass surgery in 2015 with poor followup. Continue current medications. Add aspirin, will defer abdominal workup to primary. The patient is scheduled for echocardiogram and stress test. PLAN: Contingent on these results. Aggressive primary and secondary prevention measures discussed. Thank you for this consultation. We will be happy to follow along with you. JOB# [id number] SBM/NTS
--- NOTE | 2018-04-02 14:21 | Cat Scan Report ---
FINAL REPORT EXAM: CT ABDOMEN PELVIS WO CON HISTORY: right flank pain, hx diverticulitis TECHNIQUE: Noncontrast CT of the abdomen and pelvis performed. No IV or gastrointestinal contrast w as administered. Axial images and coronal and sagittal reformatted images were obtained. PRIORS: 01/28/2018 FINDINGS: There is some unchanged scarring in the right middle lobe and left lower lobe. There are coronary artery atherosclerotic calcifications. Within the limitations of a non-enhanced study, the visualized liver, spleen, pancreas, adrenal gland s and kidneys demonstrate no significant abnormalities. There are no renal stones, ureteral stones, hydronephrosis, or evidence of obstructive uropathy. There is no abdominal aortic aneurysm. There is no evidence of intestinal obstruction. The appendix is normal. There are no abnormal fluid collections seen. There is no free intraperitoneal air. There is diverticulosis involving the left colon, but there is no evidence of acute diverticulitis. The bladder is unremarkable. IMPRESSION: There are no renal stones, ureteral stones, hydronephrosis, or evidence of obstructive uropathy. Diverticulosis involving the left colon. No acute diverticulitis. Coronary and aortic atherosclerotic calcifications. There is no acute abnormality identified.
[2018-04-02] MEDS: ECOTRIN PO SCH (15:36)
[2018-04-02] MEDS: TYLENOL PO PRN (21:45)
[2018-04-03] MEDS: HumaLOG SUB-Q SCH ×4 (07:30→21:47)
[2018-04-03] MEDS ORDERED: LEXISCAN IV ONE ×2 (07:48→07:58)
--- NOTE | 2018-04-03 08:07 | Progress Note ---
Assessment and Plan given recurrent cp, h/o cabg, amd poor f/u, will proceed with stress mpi. He will likely need lhc on Thursday. This is d/w pt at length. cont asa add statin, low dose bb. Subjective Date of service: 04/03/18 Interval history: recurrent cp last night x 2 now cp-free seen in stress lab Objective Vital Signs Temp Pulse Pulse Pulse Pulse Resp BP 04/03/18 04:03 97.4 F L 79 16 136/78 04/02/18 23:13 97.5 F L 72 12 141/69 04/02/18 23:00 85 04/02/18 22:00 85 18 04/02/18 19:38 97.7 F 80 16 148/113 04/02/18 18:58 140/88 04/02/18 16:45 98.6 F 68 18 161/81 04/02/18 14:14 166/93 04/02/18 12:00 97.5 F L 67 18 151/86 04/02/18 10:00 77 77 77 18 04/02/18 09:30 66 13 134/78 04/02/18 09:20 74 10 L 134/78 04/02/18 09:10 74 14 140/80 04/02/18 09:00 64 18 140/80 04/02/18 08:50 55 L 14 139/81 04/02/18 08:40 58 L 15 151/79 04/02/18 08:30 71 16 138/75 04/02/18 08:20 56 L 11 L 138/75 04/02/18 08:10 55 L 13 145/76 Pulse Ox 04/03/18 04:03 96 04/02/18 23:13 95 04/02/18 23:00 04/02/18 22:00 99 04/02/18 19:38 94 04/02/18 18:58 04/02/18 16:45 95 04/02/18 14:14 95 04/02/18 12:00 93 04/02/18 10:00 99 04/02/18 09:30 04/02/18 09:20 04/02/18 09:10 04/02/18 09:00 04/02/18 08:50 04/02/18 08:40 04/02/18 08:30 04/02/18 08:20 04/02/18 08:10 - Labs and Meds CBC 04/02/18 Range/Units 11:33 WBC 7.8 (4.5-11.0) K/mm3 RBC 5.01 (3.65-5.03) M/mm3 Hgb 15.2 (11.8-15.2) gm/dl Hct 45.3 (35.5-45.6) % Plt Count 242 (140-440) K/mm3 Lymph # 2.1 (1.2-5.4) K/mm3 [place] # 0.7 (0.0-0.8) K/mm3 Eos # 0.1 (0.0-0.4) K/mm3 Baso # 0.0 (0.0-0.1) K/mm3 Comprehensive Metabolic Panel 04/02/18 Range/Units 10:15 Sodium 141 (137-145) mmol/L Potassium 4.1 (3.6-5.0) mmol/L Chloride 100.9 (98-107) mmol/L Carbon Dioxide 24 (22-30) mmol/L BUN 15 (9-20) mg/dL Creatinine 0.7 L (0.8-1.5) mg/dL Glucose 237 H (75-100) mg/dL Calcium 9.0 (8.4-10.2) mg/dL
[2018-04-03] MEDS: LOVENOX SUB-Q SCH ×2 (10:00→10:05)
[2018-04-03] MEDS: ECOTRIN PO SCH ×2 (10:00→10:04)
[2018-04-03] MEDS: LOPRESSOR PO SCH ×2 (10:00→21:45)
[2018-04-03] MEDS: SODIUM CHLORIDE FLUSH SYRINGE 10 ML IV SCH ×3 (10:01→23:14)
[2018-04-03] MEDS: TYLENOL PO PRN ×2 (10:09→21:46)
--- NOTE | 2018-04-03 11:00 | Progress Note ---
Assessment and Plan Assessment and plan: Chest pain. Patient will be placed on the chest pain pathway. We will follow- up Lexiscan and echocardiogram. Cardiology following. Consideration for C depending on Lexiscan results. Hypertension. Continue antihypertensive medications. Diabetes mellitus type 2. Continue Accu-Cheks and sliding scale insulin. History of diverticulitis. History Interval history: No new issues overnight Hospitalist Physical - Constitutional Vitals: Temp Pulse Resp BP Pulse Ox 97.4 F L 82 20 134/74 96 04/03/18 04:03 04/03/18 10:00 04/03/18 10:09 04/03/18 10:00 04/03/18 04:03 General appearance: Present: no acute distress, well-nourished - EENT Eyes: Present: PERRL, EOM intact ENT: hearing intact, clear oral mucosa, dentition normal - Neck Neck: Present: supple, normal ROM - Respiratory Respiratory effort: normal Respiratory: bilateral: CTA - Cardiovascular Rhythm: regular Heart Sounds: Present: S1 & S2. Absent: gallop, rub - Extremities Extremities: no ischemia, No edema, Full ROM - Abdominal General gastrointestinal: soft, non-tender, non-distended, normal bowel sounds - Integumentary Integumentary: Present: clear, warm, dry - Neurologic Neurologic: CNII-XII intact, moves all extremities Results - Labs CBC & Chem 7: 04/02/18 11:33 04/02/18 10:15 Labs: Laboratory Last Values WBC 7.8 K/mm3 (4.5-11.0) 04/02/18 11:33 RBC 5.01 M/mm3 (3.65-5.03) 04/02/18 11:33 Hgb 15.2 gm/dl (11.8-15.2) 04/02/18 11:33 Hct 45.3 % (35.5-45.6) 04/02/18 11:33 MCV 90 fl (84-94) 04/02/18 11:33 MCH 30 pg (28-32) 04/02/18 11:33 MCHC 33 % (32-34) 04/02/18 11:33 RDW 13.4 % (13.2-15.2) 04/02/18 11:33 Plt Count 242 K/mm3 (140-440) 04/02/18 11:33 Lymph % (Auto) 26.3 % (13.4-35.0) 04/02/18 11:33 [place] % (Auto) 9.3 % (0.0-7.3) H 04/02/18 11:33 Eos % (Auto) 1.6 % (0.0-4.3) 04/02/18 11:33 Baso % (Auto) 0.5 % (0.0-1.8) 04/02/18 11:33 Lymph # 2.1 K/mm3 (1.2-5.4) 04/02/18 11:33 [place] # 0.7 K/mm3 (0.0-0.8) 04/02/18 11:33 Eos # 0.1 K/mm3 (0.0-0.4) 04/02/18 11:33 Baso # 0.0 K/mm3 (0.0-0.1) 04/02/18 11:33 Seg Neutrophils % 62.3 % (40.0-70.0) 04/02/18 11:33 Seg Neutrophils # 4.9 K/mm3 (1.8-7.7) 04/02/18 11:33 PT 13.4 Sec. (12.2-14.9) 04/02/18 04:05 INR 0.98 (0.87-1.13) 04/02/18 04:05 APTT 27.8 Sec. (24.2-36.6) 04/02/18 04:05 D-Dimer 174.03 ng/mlDDU (0-234) 04/02/18 04:05 Sodium 141 mmol/L (137-145) 04/02/18 10:15 Potassium 4.1 mmol/L (3.6-5.0) 04/02/18 10:15 Chloride 100.9 mmol/L (98-107) 04/02/18 10:15 Carbon Dioxide 24 mmol/L (22-30) 04/02/18 10:15 Anion Gap 20 mmol/L 04/02/18 10:15 BUN 15 mg/dL (9-20) 04/02/18 10:15 Creatinine 0.7 mg/dL (0.8-1.5) L 04/02/18 10:15 Estimated GFR > 60 ml/min 04/02/18 10:15 BUN/Creatinine Ratio 21 % 04/02/18 10:15 Glucose 237 mg/dL (75-100) H 04/02/18 10:15 POC Glucose 203 (70-105) H 04/03/18 05:47 Calcium 9.0 mg/dL (8.4-10.2) 04/02/18 10:15 Troponin T < 0.010 ng/mL (0.00-0.029) 04/02/18 10:15 Urine Color Yellow (Yellow) 04/02/18 13:00 Urine Turbidity Clear (Clear) 04/02/18 13:00 Urine pH 7.0 (5.0-7.0) 04/02/18 13:00 Ur Specific [place] 1.020 (1.003-1.030) 04/02/18 13:00 Urine Protein 30 mg/dl mg/dL (Negative) 04/02/18 13:00 Urine Glucose (UA) Neg mg/dL (Negative) 04/02/18 13:00 Urine Ketones Neg mg/dL (Negative) 04/02/18 13:00 Urine Blood Neg (Negative) 04/02/18 13:00 Urine Nitrite Neg (Negative) 04/02/18 13:00 Urine Bilirubin Neg (Negative) 04/02/18 13:00 Urine Urobilinogen < 2.0 mg/dL (<2.0) 04/02/18 13:00 Ur Leukocyte Esterase Neg (Negative) 04/02/18 13:00 Urine WBC (Auto) < 1.0 /HPF (0.0-6.0) 04/02/18 13:00 Urine RBC (Auto) 3.0 /HPF (0.0-6.0) 04/02/18 13:00 U Epithel Cells (Auto) < 1.0 /HPF (0-13.0) 04/02/18 13:00 Urine Bacteria (Auto) 1+ /HPF (Negative) 04/02/18 13:00 Hyaline Casts 15 /LPF 04/02/18 02:59 Urine Mucus 2+ /HPF 04/02/18 13:00
[2018-04-04] MEDS: TYLENOL PO PRN ×3 (02:46→17:43)
[2018-04-04] MEDS: LOVENOX SUB-Q SCH (09:30)
[2018-04-04] MEDS: LOPRESSOR PO SCH ×2 (09:31→22:13)
[2018-04-04] MEDS: ECOTRIN PO SCH (09:32)
[2018-04-04] MEDS: HumaLOG SUB-Q SCH ×4 (09:32→22:13)
--- NOTE | 2018-04-04 11:27 | Progress Note ---
Assessment and Plan Assessment and plan: Chest pain. Patient will be placed on the chest pain pathway. Lexiscan results pending and echocardiogram reveals global left ventricular contractility within normal limits with an EF of 50-55%. Abnormal left ventricular diastolic filling consistent with impaired relaxation. Cardiology following. [facility] for Thursday per cardiology. Hypertension. Continue antihypertensive medications. Diabetes mellitus type 2. Continue Accu-Cheks and sliding scale insulin. Right flank pain. CT scan abdomen and pelvis negative for calculi or hydronephrosis. History Interval history: No new issues overnight Hospitalist Physical - Constitutional Vitals: Temp Pulse Resp BP Pulse Ox 97.4 F L 65 18 130/82 96 04/04/18 07:50 04/04/18 09:31 04/04/18 07:51 04/04/18 09:31 04/04/18 07:51 General appearance: Present: no acute distress, well-nourished - EENT Eyes: Present: PERRL, EOM intact ENT: hearing intact, clear oral mucosa, dentition normal - Neck Neck: Present: supple, normal ROM - Respiratory Respiratory effort: normal Respiratory: bilateral: CTA - Cardiovascular Rhythm: regular Heart Sounds: Present: S1 & S2. Absent: gallop, rub - Extremities Extremities: no ischemia, No edema, Full ROM - Abdominal General gastrointestinal: soft, non-tender, non-distended, normal bowel sounds - Integumentary Integumentary: Present: clear, warm, dry - Neurologic Neurologic: CNII-XII intact, moves all extremities Results - Labs CBC & Chem 7: 04/02/18 11:33 04/02/18 10:15 Labs: Laboratory Last Values WBC 7.8 K/mm3 (4.5-11.0) 04/02/18 11:33 RBC 5.01 M/mm3 (3.65-5.03) 04/02/18 11:33 Hgb 15.2 gm/dl (11.8-15.2) 04/02/18 11:33 Hct 45.3 % (35.5-45.6) 04/02/18 11:33 MCV 90 fl (84-94) 04/02/18 11:33 MCH 30 pg (28-32) 04/02/18 11:33 MCHC 33 % (32-34) 04/02/18 11:33 RDW 13.4 % (13.2-15.2) 04/02/18 11:33 Plt Count 242 K/mm3 (140-440) 04/02/18 11:33 Lymph % (Auto) 26.3 % (13.4-35.0) 04/02/18 11:33 [place] % (Auto) 9.3 % (0.0-7.3) H 04/02/18 11:33 Eos % (Auto) 1.6 % (0.0-4.3) 04/02/18 11:33 Baso % (Auto) 0.5 % (0.0-1.8) 04/02/18 11:33 Lymph # 2.1 K/mm3 (1.2-5.4) 04/02/18 11:33 [place] # 0.7 K/mm3 (0.0-0.8) 04/02/18 11:33 Eos # 0.1 K/mm3 (0.0-0.4) 04/02/18 11:33 Baso # 0.0 K/mm3 (0.0-0.1) 04/02/18 11:33 Seg Neutrophils % 62.3 % (40.0-70.0) 04/02/18 11:33 Seg Neutrophils # 4.9 K/mm3 (1.8-7.7) 04/02/18 11:33 PT 13.4 Sec. (12.2-14.9) 04/02/18 04:05 INR 0.98 (0.87-1.13) 04/02/18 04:05 APTT 27.8 Sec. (24.2-36.6) 04/02/18 04:05 D-Dimer 174.03 ng/mlDDU (0-234) 04/02/18 04:05 Sodium 141 mmol/L (137-145) 04/02/18 10:15 Potassium 4.1 mmol/L (3.6-5.0) 04/02/18 10:15 Chloride 100.9 mmol/L (98-107) 04/02/18 10:15 Carbon Dioxide 24 mmol/L (22-30) 04/02/18 10:15 Anion Gap 20 mmol/L 04/02/18 10:15 BUN 15 mg/dL (9-20) 04/02/18 10:15 Creatinine 0.7 mg/dL (0.8-1.5) L 04/02/18 10:15 Estimated GFR > 60 ml/min 04/02/18 10:15 BUN/Creatinine Ratio 21 % 04/02/18 10:15 Glucose 237 mg/dL (75-100) H 04/02/18 10:15 POC Glucose 217 (70-105) H 04/04/18 05:17 Calcium 9.0 mg/dL (8.4-10.2) 04/02/18 10:15 Troponin T < 0.010 ng/mL (0.00-0.029) 04/02/18 10:15 Urine Color Yellow (Yellow) 04/02/18 13:00 Urine Turbidity Clear (Clear) 04/02/18 13:00 Urine pH 7.0 (5.0-7.0) 04/02/18 13:00 Ur Specific [place] 1.020 (1.003-1.030) 04/02/18 13:00 Urine Protein 30 mg/dl mg/dL (Negative) 04/02/18 13:00 Urine Glucose (UA) Neg mg/dL (Negative) 04/02/18 13:00 Urine Ketones Neg mg/dL (Negative) 04/02/18 13:00 Urine Blood Neg (Negative) 04/02/18 13:00 Urine Nitrite Neg (Negative) 04/02/18 13:00 Urine Bilirubin Neg (Negative) 04/02/18 13:00 Urine Urobilinogen < 2.0 mg/dL (<2.0) 04/02/18 13:00 Ur Leukocyte Esterase Neg (Negative) 04/02/18 13:00 Urine WBC (Auto) < 1.0 /HPF (0.0-6.0) 04/02/18 13:00 Urine RBC (Auto) 3.0 /HPF (0.0-6.0) 04/02/18 13:00 U Epithel Cells (Auto) < 1.0 /HPF (0-13.0) 04/02/18 13:00 Urine Bacteria (Auto) 1+ /HPF (Negative) 04/02/18 13:00 Hyaline Casts 15 /LPF 04/02/18 02:59 Urine Mucus 2+ /HPF 04/02/18 13:00 Nutrition/Malnutrition Assess - Dietary Evaluation Nutrition/Malnutrition Findings: Nutrition Notes Start: 04/03/18 14:53 Freq: Status: Active Protocol: Document 04/03/18 14:53 RM (Rec: 04/03/18 14:56 RM [id number]) Nutrition Notes Need for Assessment generated from: Education Initial or Follow up Assessment Current Diagnosis Coronary Artery Disease Diabetes Hypertension Other Pertinent Diagnosis Hx diverticulitis Subjective/Other Information Pt screened for new onset DM diet education. Pt stated that he has had DM for a few years but cannot recall previous diet education . Reviewed carbohydrate counting. Gave handout. #1 Nutrition Diagnosis Food and nutrition-related knowledge deficit Etiology inability to recall previous education As Evidenced by Signs and Symptoms pt desire for diet education Nutrition Intervention Teaching Recipient Patient Learning Readiness Good Teaching Methods Discussion Handout Response to Teaching Verbalize understanding Education Handouts Provided Carbohydrate Counting for People with Diabetes Barriers to Learning No Barriers RD phone number provided Yes Patient aware of follow up options Yes Goal #1 Utilize carbohydrate counting Revisit per MD consult or patient Sign Off request:
[2018-04-04] MEDS ORDERED: MORPHINE IV PRN (11:32)
--- NOTE | 2018-04-04 12:22 | Progress Note ---
Assessment and Plan given recurrent cp last night, h/o cabg, will proceed with [facility] in am. This is d/w pt at length. cont asa/statin/bb Subjective Date of service: 04/04/18 Objective Vital Signs Temp Pulse Pulse Resp Resp BP Pulse Ox 04/04/18 12:10 62 18 145/74 92 04/04/18 12:09 97.8 F 04/04/18 09:31 65 130/82 04/04/18 07:51 65 18 130/82 96 04/04/18 07:50 97.4 F L 04/04/18 05:10 98.7 F 61 20 137/65 94 04/04/18 00:04 98.1 F 58 L 20 135/57 94 04/03/18 23:00 66 04/03/18 21:45 67 152/80 04/03/18 19:56 97.3 F L 66 18 152/80 95 04/03/18 16:59 76 154/89 95 04/03/18 15:00 82 04/03/18 13:54 78 20 20 98
[2018-04-04] MEDS: SODIUM CHLORIDE FLUSH SYRINGE 10 ML IV SCH ×2 (14:04→22:14)
--- NOTE | 2018-04-04 22:46 | Treadmill Report ---
NUCLEAR PERFUSION SCAN PROTOCOL: The patient was brought to the stress lab in postabsorptive state, given 10 mCi of technetium 99m at rest. The patient underwent rest imaging. The patient underwent Lexiscan stress test per standard protocol. At peak stress, the patient was given 26 mCi of technetium 99m. Shortly after stress imaging, raw imaging reveals mild GI artifact. No significant motion artifact. SPECT imaging examined carefully in the horizontal long axis, vertical long axis, and short axis views. There is no evidence of significant fixed or reversible perfusion defects suggestive of prior infarction or ischemia. Gated wall motion reveals normal systolic thickening with a calculated ejection fraction of 61%. No TID. CONCLUSIONS: 1. Normal myocardial perfusion scan without evidence of active ischemia or prior infarction. 2. Normal left ventricular systolic performance without evidence of transient ischemic dilatation or stress-induced segmental wall motion abnormalities. 3. Lexiscan stress test reported separately. JOB# [id number] LYSSA/SRIDHAR
[2018-04-05] MEDS: TYLENOL PO PRN ×6 (00:02→22:17)
[2018-04-05 05:53] LABS: INR 1.03 (0.87-1.13)
[2018-04-05] MEDS: HumaLOG SUB-Q SCH ×3 (08:16→22:17)
[2018-04-05] MEDS ORDERED: HEPARIN/NS 5000 UNIT/500ML(CATH LAB) 1,000 ML IR ONE (08:20)
[2018-04-05] MEDS ORDERED: XYLOCAINE 2% INFILTRATI ONE (08:21)
[2018-04-05] MEDS ORDERED: ECOTRIN PO ONE (08:24)
[2018-04-05] MEDS ORDERED: NACL 0.9% 500 ML 500 ML ONE (08:36)
[2018-04-05] MEDS: VERSED ONE ×2 (09:01→09:03)
[2018-04-05] MEDS: SUBLIMAZE ONE ×2 (09:01→09:03)
[2018-04-05] MEDS: HEPARIN 10,000 UNITS/10 ML ONE ×2 (09:09→09:22)
[2018-04-05] MEDS ORDERED: NITROGLYCERIN SYRINGE 3 ML ONE (09:17)
--- NOTE | 2018-04-05 09:35 | Progress Note ---
Assessment and Plan Assessment and plan: Chest pain. Patient will be placed on the chest pain pathway. Lexiscan results pending and echocardiogram reveals global left ventricular contractility within normal limits with an EF of 50-55%. Abnormal left ventricular diastolic filling consistent with impaired relaxation. Cardiology following. [facility] today Hypertension. Continue antihypertensive medications. Diabetes mellitus type 2. Continue Accu-Cheks and sliding scale insulin. Right flank pain. CT scan abdomen and pelvis negative for calculi or hydronephrosis. History Interval history: No new issues overnight Hospitalist Physical - Constitutional Vitals: Temp Pulse Resp BP Pulse Ox 98.4 F 61 16 136/77 97 04/05/18 04:27 04/05/18 07:05 04/05/18 07:05 04/05/18 04:27 04/05/18 07:05 General appearance: Present: no acute distress, well-nourished - EENT Eyes: Present: PERRL, EOM intact ENT: hearing intact, clear oral mucosa, dentition normal - Neck Neck: Present: supple, normal ROM - Respiratory Respiratory effort: normal Respiratory: bilateral: CTA - Cardiovascular Rhythm: regular Heart Sounds: Present: S1 & S2. Absent: gallop, rub - Extremities Extremities: no ischemia, No edema, Full ROM - Abdominal General gastrointestinal: soft, non-tender, non-distended, normal bowel sounds - Integumentary Integumentary: Present: clear, warm, dry - Neurologic Neurologic: CNII-XII intact, moves all extremities Results - Labs CBC & Chem 7: 04/02/18 11:33 04/02/18 10:15 Labs: Laboratory Last Values WBC 7.8 K/mm3 (4.5-11.0) 04/02/18 11:33 RBC 5.01 M/mm3 (3.65-5.03) 04/02/18 11:33 Hgb 15.2 gm/dl (11.8-15.2) 04/02/18 11:33 Hct 45.3 % (35.5-45.6) 04/02/18 11:33 MCV 90 fl (84-94) 04/02/18 11:33 MCH 30 pg (28-32) 04/02/18 11:33 MCHC 33 % (32-34) 04/02/18 11:33 RDW 13.4 % (13.2-15.2) 04/02/18 11:33 Plt Count 242 K/mm3 (140-440) 04/02/18 11:33 Lymph % (Auto) 26.3 % (13.4-35.0) 04/02/18 11:33 [place] % (Auto) 9.3 % (0.0-7.3) H 04/02/18 11:33 Eos % (Auto) 1.6 % (0.0-4.3) 04/02/18 11:33 Baso % (Auto) 0.5 % (0.0-1.8) 04/02/18 11:33 Lymph # 2.1 K/mm3 (1.2-5.4) 04/02/18 11:33 [place] # 0.7 K/mm3 (0.0-0.8) 04/02/18 11:33 Eos # 0.1 K/mm3 (0.0-0.4) 04/02/18 11:33 Baso # 0.0 K/mm3 (0.0-0.1) 04/02/18 11:33 Seg Neutrophils % 62.3 % (40.0-70.0) 04/02/18 11:33 Seg Neutrophils # 4.9 K/mm3 (1.8-7.7) 04/02/18 11:33 PT 13.9 Sec. (12.2-14.9) 04/05/18 05:01 INR 1.03 (0.87-1.13) 04/05/18 05:01 APTT 27.8 Sec. (24.2-36.6) 04/02/18 04:05 D-Dimer 174.03 ng/mlDDU (0-234) 04/02/18 04:05 Sodium 141 mmol/L (137-145) 04/02/18 10:15 Potassium 4.1 mmol/L (3.6-5.0) 04/02/18 10:15 Chloride 100.9 mmol/L (98-107) 04/02/18 10:15 Carbon Dioxide 24 mmol/L (22-30) 04/02/18 10:15 Anion Gap 20 mmol/L 04/02/18 10:15 BUN 15 mg/dL (9-20) 04/02/18 10:15 Creatinine 0.7 mg/dL (0.8-1.5) L 04/02/18 10:15 Estimated GFR > 60 ml/min 04/02/18 10:15 BUN/Creatinine Ratio 21 % 04/02/18 10:15 Glucose 237 mg/dL (75-100) H 04/02/18 10:15 POC Glucose 200 (70-105) H 04/05/18 06:11 Calcium 9.0 mg/dL (8.4-10.2) 04/02/18 10:15 Troponin T < 0.010 ng/mL (0.00-0.029) 04/02/18 10:15 Urine Color Yellow (Yellow) 04/02/18 13:00 Urine Turbidity Clear (Clear) 04/02/18 13:00 Urine pH 7.0 (5.0-7.0) 04/02/18 13:00 Ur Specific [place] 1.020 (1.003-1.030) 04/02/18 13:00 Urine Protein 30 mg/dl mg/dL (Negative) 04/02/18 13:00 Urine Glucose (UA) Neg mg/dL (Negative) 04/02/18 13:00 Urine Ketones Neg mg/dL (Negative) 04/02/18 13:00 Urine Blood Neg (Negative) 04/02/18 13:00 Urine Nitrite Neg (Negative) 04/02/18 13:00 Urine Bilirubin Neg (Negative) 04/02/18 13:00 Urine Urobilinogen < 2.0 mg/dL (<2.0) 04/02/18 13:00 Ur Leukocyte Esterase Neg (Negative) 04/02/18 13:00 Urine WBC (Auto) < 1.0 /HPF (0.0-6.0) 04/02/18 13:00 Urine RBC (Auto) 3.0 /HPF (0.0-6.0) 04/02/18 13:00 U Epithel Cells (Auto) < 1.0 /HPF (0-13.0) 04/02/18 13:00 Urine Bacteria (Auto) 1+ /HPF (Negative) 04/02/18 13:00 Hyaline Casts 15 /LPF 04/02/18 02:59 Urine Mucus 2+ /HPF 04/02/18 13:00 Nutrition/Malnutrition Assess - Dietary Evaluation Nutrition/Malnutrition Findings: Nutrition Notes Start: 04/03/18 14:53 Freq: Status: Active Protocol: Document 04/03/18 14:53 RM (Rec: 04/03/18 14:56 RM [id number]) Nutrition Notes Need for Assessment generated from: Education Initial or Follow up Assessment Current Diagnosis Coronary Artery Disease Diabetes Hypertension Other Pertinent Diagnosis Hx diverticulitis Subjective/Other Information Pt screened for new onset DM diet education. Pt stated that he has had DM for a few years but cannot recall previous diet education . Reviewed carbohydrate counting. Gave handout. #1 Nutrition Diagnosis Food and nutrition-related knowledge deficit Etiology inability to recall previous education As Evidenced by Signs and Symptoms pt desire for diet education Nutrition Intervention Teaching Recipient Patient Learning Readiness Good Teaching Methods Discussion Handout Response to Teaching Verbalize understanding Education Handouts Provided Carbohydrate Counting for People with Diabetes Barriers to Learning No Barriers RD phone number provided Yes Patient aware of follow up options Yes Goal #1 Utilize carbohydrate counting Revisit per MD consult or patient Sign Off request:
[2018-04-05] MEDS: PLAVIX ONE ×2 (09:36→09:45)
[2018-04-05] MEDS: ALUM-MAG HYDROX-SIMETH 200-200-20MG/5ML ONE ×2 (09:37→09:45)
--- NOTE | 2018-04-05 09:51 | Progress Note ---
Assessment and Plan chest pain recurrent htn chol dm acute diastolic dysfunction cad s/p cabg 2014 montez to lad and svg to diagonal 1 rec: [facility] for recurrent chest pain lt main patent, lad proximal 100%, montez to lad small patent, svg to diagonal 1 patent, lcx proximal 90% ramus patent, om1-2 patent rca patent normal lv function, pci of lcx with richard resolute 4.0 x 12 mm @ 12 [place], cont asa and plavix and statin, hold home metformin for two days and cont home glyburide for dm control. Subjective Date of service: 04/05/18 Principal diagnosis: chest pain Interval history: pt had intermittent chest pain Objective Vital Signs Temp Pulse Pulse Resp BP Pulse Ox 04/05/18 07:05 61 16 97 04/05/18 07:00 61 04/05/18 05:27 20 04/05/18 04:27 98.4 F 60 18 136/77 94 04/04/18 23:31 98.3 F 69 18 135/78 96 04/04/18 23:00 62 04/04/18 22:13 70 146/70 04/04/18 19:35 98.1 F 66 18 146/70 96 04/04/18 17:06 98.2 F 61 18 160/82 96 04/04/18 14:31 18 04/04/18 14:01 18 04/04/18 12:10 62 18 145/74 92 04/04/18 12:09 97.8 F 04/04/18 10:31 18 - Physical Examination General: Appears Well, No Apparent Distress HEENT: Positive: PERRL, EOMI Neck: Positive: neck supple Cardiac: Positive: Reg Rate and Rhythm Lungs: Positive: clear to auscultation Neuro: Positive: Grossly Intact Abdomen: /Rectal: Normal Prostate, No Masses Skin: Incision: Cardiac Cath Site (no hematoma at cath site, sheath in place) Musculoskeletal: No Fluid Collection, No Pain, Normal Range of Motion Gait: Normal Gait Extremities: - Labs and Meds Coagulation 04/05/18 Range/Units 05:01 PT 13.9 (12.2-14.9) Sec. INR 1.03 (0.87-1.13) - Imaging and Cardiology Pharmacologic stress test: report reviewed (normal myocardial perfusion no signficant ischemia normal lv function) Echo: report reviewed (normal lv function , mild mr and mild tr) Cardiac cath: report reviewed (lt main patent, lad proximal 100%, montez to lad small patent, svg to diagonal 1 patent, lcx proximal 90% ramus patent, om1-2 patent rca patent normal lv function, pci of lcx with richard resolute 4.0 x 12 mm @ 12 preston ) - Telemetry EKG Rhythm: Sinus Rhythm
[2018-04-05] MEDS ORDERED: NACL 0.9% 1000 ML 1,000 ML IV SCH (10:00)
--- NOTE | 2018-04-05 10:13 | Cardiac Catherization Report ---
LEFT HEART CATHETERIZATION/PERCUTANEOUS CORONARY INTERVENTIONAL REPORT/INTRAVASCULAR ULTRASOUND REPORT CLINICAL INFORMATION: This is a 72-year-old gentleman who had a 2-vessel bypass in 2015, PATEL to LAD and SVG to diagonal for bifurcating lesions, has hypertension, diabetes, cholesterol, [facility], presents to the hospital's the last several weeks of shortness of breath with exertion and chest pain. Procedure was done under moderate sedation. The patient received 1 mg Versed, 50 mcg of fentanyl. Total sedation time was 27 minutes, started on 9:03 a.m. finished at 9:30 a.m. Left heart catheterization performed via the right common femoral artery, sterile technique, local anesthesia, 5-Dutch groin sheath inserted. Left system is engaged with JL4 catheter. Left main is large and patent, bifurcates into large LAD, proximal is 100%, competitive flow. Ramus is a small to medium caliber vessel, it is patent. Circumflex is a large caliber vessel, proximal mid 90% lesion. OM1 and OM2 are lyqrzf-es-ldazc caliber vessel that is patent. RCA engaged with JR4, medium to large caliber vessel with moderate to severe tortuosity, is patent from proximally and distally. PDA is a tftip-zk-oefccp caliber vessel, patent. LV gram done in MALAY and GANT view shows normal LV function, LVEDP of 12 mmHg, LV is 137. Aortic is 137/67. No gradient across the aortic valve on pullback. SVG diagonal engaged with a JR4 catheter, large caliber graft, free of disease at the ostium, body and anastomosis site and going into a nmhhb-gy-ujyeob caliber diagonal with retrograde flow into the LAD. PATEL was engaged with IM catheter, is a ybszy-pg-zmkaup caliber vessel that is patent from proximally and distally, goes into the LAD and distal LAD disease of a small caliber LAD at the apex. Percutaneous coronary intervention/intravascular ultrasound of the circumflex: 1. 5-Dutch groin sheath changed for a 6-Dutch groin sheath. 2. Engaged the left system with EBU 3.5 guiding catheter. 3. Crossed into the distal circ with a short [place] wire. 4. Predilated with 2.5 x 8 treks balloon at 12 atmospheres. 4. Intravascular ultrasound showed proximal and distal reference 4.1 x 4.2. 5. Stenting with drug-eluting Resolute 4.0 x 12 mm at 12 atmospheres. 6. Excellent angiographic result. No dissection or perforation noted. Continued LEVI 3 flow in the circ and going to OM1 and OM2. 7. Coronary wire removed. Multiple angiograms, continued LEVI 3 flow. No dissection or perforation, good stent apposition. 8. A 6-Dutch guiding catheter taken over guidewire, 6-Dutch groin sheath sewn in. No hematoma, no bleeding. Anticoagulation by heparin. ACT of 241. SUMMARY: 1. Successful PCI/intravascular ultrasound of the circumflex with a drug-eluting Resolute 4.0 x 12, continue aspirin and Plavix. We will hold metformin. 2. Left main patent, LAD 100%, but patent, PATEL to LAD, small caliber vessel and patent SVG diagonal. 3. RCA patent with normal LV function. 4. Continue risk factor modifications. JOB# [id number] SANTIAGO/SRIDHAR
[2018-04-05] MEDS: SODIUM CHLORIDE FLUSH SYRINGE 10 ML IV SCH ×2 (10:30→22:19)
[2018-04-05] MEDS ORDERED: TYLENOL ONE (11:41)
[2018-04-05] MEDS ORDERED: NACL 0.9% 1000 ML 1,000 ML ONE (12:37)
[2018-04-05] MEDS: LOVENOX SUB-Q SCH (17:12)
[2018-04-05] MEDS: BABY ASPIRIN PO SCH (17:12)
[2018-04-05] MEDS: LOPRESSOR PO SCH ×2 (17:14→22:16)
[2018-04-06 05:19] VITALS: BP 133/78
[2018-04-06 06:28] LABS: Basophils # (Auto) 0.1 K/mm3 (0.0-0.1); Basophils % (Auto) 0.7 % (0.0-1.8); Eosinophils # (Auto) 0.1 K/mm3 (0.0-0.4); Eosinophils % (Auto) 1.6 % (0.0-4.3); Hematocrit 45.8 % (35.5-45.6); Hemoglobin 15.6 gm/dl (11.8-15.2); Lymphocytes # (Auto) 2.4 K/mm3 (1.2-5.4); Mean Corpuscular HGB Conc 34 % (32-34); Mean Corpuscular Volume 88 fl (84-94); Monocytes # (Auto) 0.8 K/mm3 (0.0-0.8); Monocytes % (Auto) 9.1 % (0.0-7.3); Platelet Count 254 K/mm3 (140-440); Red Blood Count 5.18 M/mm3 (3.65-5.03); Red Cell Distribution Width 12.9 % (13.2-15.2)
[2018-04-06 06:44] LABS: Creatine Kinase MB 5.9 ng/mL (0.0-4.0)
[2018-04-06 06:50] LABS: BUN/Creatinine Ratio 24; Blood Urea Nitrogen 19 mg/dL (9-20); Calcium 8.8 mg/dL (8.4-10.2); Hemolysis Index 7
[2018-04-06] MEDS: HumaLOG SUB-Q SCH (07:40)
--- NOTE | 2018-04-06 09:27 | Progress Note ---
Assessment and Plan chest pain recurrent resolved htn chol dm acute diastolic dysfunction cad s/p cabg 2014 montez to lad and svg to diagonal 1 rec: lhc for recurrent chest pain lt main patent, lad proximal 100%, montez to lad small patent, svg to diagonal 1 patent, lcx proximal 90% ramus patent, om1-2 patent rca patent normal lv function, pci of lcx with richard resolute 4.0 x 12 mm @ 12 [place], cont asa and plavix and statin, hold home metformin for two days and cont home glyburide for dm control. add pepcid for history of gi bleeding and pt maybe [facility] from [facility] point [facility] Subjective Date of service: 04/06/18 Principal diagnosis: chest pain Interval history: pt is chest pain free now Objective Vital Signs Temp Pulse Resp BP Pulse Ox 04/06/18 09:08 18 04/06/18 04:15 98.5 F 58 L 18 133/78 96 04/05/18 23:41 98.3 F 70 18 131/76 97 04/05/18 23:00 77 04/05/18 22:16 84 132/71 04/05/18 20:22 82 18 132/71 96 04/05/18 20:18 98.3 F 18 160/86 04/05/18 17:39 130/72 04/05/18 17:20 127/63 04/05/18 17:14 143/81 04/05/18 14:00 65 18 116/71 96 04/05/18 13:35 68 17 102/63 96 04/05/18 13:20 69 19 133/73 94 04/05/18 13:15 70 20 131/70 95 04/05/18 13:10 70 16 137/75 94 04/05/18 13:05 63 18 130/74 94 04/05/18 13:00 58 L 20 129/60 94 04/05/18 12:30 57 L 14 131/74 95 04/05/18 12:00 56 L 19 132/77 95 04/05/18 11:40 20 04/05/18 11:30 65 13 150/81 98 04/05/18 11:00 56 L 19 119/74 97 04/05/18 10:45 56 L 22 103/67 97 04/05/18 10:30 55 L 19 102/63 94 04/05/18 10:15 57 L 19 103/64 92 04/05/18 10:00 98.6 F 60 18 112/76 94 - Physical Examination General: Appears Well, No Apparent Distress HEENT: Positive: PERRL, EOMI Neck: Positive: neck supple Cardiac: Positive: Reg Rate and Rhythm Lungs: Positive: Normal Exam Neuro: Positive: Grossly Intact Abdomen: /Rectal: Normal Prostate, No Masses Skin: Incision: Cardiac Cath Site (no hematoma at cath site, ) Musculoskeletal: No Fluid Collection, No Pain, Normal Range of Motion Gait: Normal Gait Extremities: - Labs and Meds Cardiac Enzymes 04/06/18 Range/Units 05:08 CK-MB (CK-2) 5.9 H (0.0-4.0) ng/mL CBC 04/06/18 Range/Units 05:08 WBC 8.3 (4.5-11.0) K/mm3 RBC 5.18 H (3.65-5.03) M/mm3 Hgb 15.6 H (11.8-15.2) gm/dl Hct 45.8 H (35.5-45.6) % Plt Count 254 (140-440) K/mm3 Lymph # 2.4 (1.2-5.4) K/mm3 [place] # 0.8 (0.0-0.8) K/mm3 Eos # 0.1 (0.0-0.4) K/mm3 Baso # 0.1 (0.0-0.1) K/mm3 Comprehensive Metabolic Panel 04/06/18 Range/Units 05:08 Sodium 139 (137-145) mmol/L Potassium 4.0 (3.6-5.0) mmol/L Chloride 101.3 (98-107) mmol/L Carbon Dioxide 25 (22-30) mmol/L BUN 19 (9-20) mg/dL Creatinine 0.8 (0.8-1.5) mg/dL Glucose 207 H (75-100) mg/dL Calcium 8.8 (8.4-10.2) mg/dL - Imaging and Cardiology Echo: report reviewed (normal lv function , mild mr and mild tr) Cardiac cath: report reviewed (lt main patent, lad proximal 100%, montez to lad small patent, svg to diagonal 1 patent, lcx proximal 90% ramus patent, om1-2 patent rca patent normal lv function, pci of lcx with richard resolute 4.0 x 12 mm @ 12 [place] ) - Telemetry EKG Rhythm: Sinus Rhythm
[2018-04-06] MEDS ORDERED: PLAVIX PO SCH (10:00)
[2018-04-06] MEDS ORDERED: PEPCID PO SCH (10:00)
--- NOTE | 2018-04-06 10:16 | Discharge Summary ---
Providers - Providers Date of Admission: 04/02/18 05:18 Date of discharge: 04/06/18 Attending physician: DAVY KEN 04/02/18 Consult to Cardiac Rehabilitation [CONS] Routine Reason For Exam: Phase I 04/02/18 10:38 Consult to Cardiology [CONS] Routine Consulting Provider: IRA WARD Reason For Exam: cp 04/05/18 Consult to Cardiac Rehabilitation [CONS] Routine Reason For Exam: post pci Primary care physician: RIKY REDDY Hospitalization Condition: Fair Hospital course: Patient is 72 yo with hypertension, coronary disease. He presented with chest pain. He was evaluated in ED and admitted. He was evaluated by cardiology cardiac cath was done, revealed left main patent, LAD proximal 100%, montez to lad small patent, svg to diagonal 1 patent, lcx proximal 90% ramus patent, om1-2 patent rca patent normal lv function, pci of lcx with richard resolute 4.0 x 12 mm @ 12 [place]. Post cardiac cath, cardiology recommended discharge on Aspirin, Plavix, statin so he was discharged home. Total time spent on discharge, 31 mins Disposition: DC- TO HOME OR SELFCARE - Discharge Diagnoses (1) Chest pain Status: Acute (2) S/P CABG x 1 Status: Chronic (3) Hyperlipidemia Status: Chronic Qualifiers: Hyperlipidemia type: mixed hyperlipidemia Qualified Code(s): E78.2 - Mixed hyperlipidemia (4) Hypertension Status: Chronic Qualifiers: Hypertension type: essential hypertension Qualified Code(s): I10 - E ssential (primary) hypertension (5) T2DM (type 2 diabetes mellitus) Status: Chronic Qualifiers: Diabetes mellitus lobsterman insulin use: without longterm use (6) Unstable angina Status: Acute Core Measure Documentation - Palliative Care Palliative Care/ Comfort Measures: Not Applicable - Core Measures Any of the following diagnoses?: none Exam - Constitutional Vitals: Temp Pulse Resp BP Pulse Ox 98.5 F 58 L 18 133/78 96 04/06/18 04:15 04/06/18 04:15 04/06/18 09:08 04/06/18 04:15 04/06/18 04:15 Plan Diet: low fat, low cholesterol, low salt, diabetic Additional Instructions: 1.Follow up with Dr. Alex Espinal for primary care in 1 week. 2.Follow up with Dr. Solis, cardiology in 1 week. 3.Resume Metformin on 04/08/18. 4.Resume Glipizide Follow up with: MAMADOU GIRARD MD [Staff Physician] - 7 Days (04/16/2018 @ 1:30PM ) Forms: [facility] PCI D/C Instructions Prescriptions: Aspirin EC [Aspirin Enteric Coated TAB] 81 mg PO QDAY #30 tablet. AtorvaSTATin [Lipitor] 40 mg PO QHS #30 tablet Clopidogrel [Plavix] 75 mg PO QDAY #30 tablet Metoprolol [Lopressor TAB] 25 mg PO BID #60 tablet
[2018-04-06] MEDS: BABY ASPIRIN PO SCH (10:28)
[2018-04-06] MEDS: LOPRESSOR PO SCH (10:28)
[2018-04-06] MEDS: SODIUM CHLORIDE FLUSH SYRINGE 10 ML IV SCH (10:29)
[2018-04-06] MEDS: TYLENOL PO PRN (10:29)
[2018-04-06] MEDS: LOVENOX SUB-Q SCH (10:29)
[2018-04-06 11:42] LABS: Chol/HDL Ratio 3.38 %
== END 2018-04-06 14:55 | disposition home or self-care (01) | DRG 246 ==
LOC: ED 02:31 → 4A 05:18 → OBSVTOIN 04-06 10:13
PROVIDERS: ADMIT Internal Medicine; ATTEND Internal Medicine
PROC: 027034Z Dilation of Coronary Artery, One Artery with Drug-eluting Intraluminal Device, Percutaneous Approach (ICD-10-PCS; principal; 2018-04-05)
PROC: 4A023N7 Measurement of Cardiac Sampling and Pressure, Left Heart, Percutaneous Approach (ICD-10-PCS; 2018-04-05)
PROC: B2111ZZ Fluoroscopy of Multiple Coronary Arteries using Low Osmolar Contrast (ICD-10-PCS; 2018-04-05)
PROC: B2151ZZ Fluoroscopy of Left Heart using Low Osmolar Contrast (ICD-10-PCS; 2018-04-05)
PROC: B2181ZZ Fluoroscopy of Left Internal Mammary Bypass Graft using Low Osmolar Contrast (ICD-10-PCS; 2018-04-05)
PROC: B2121ZZ Fluoroscopy of Single Coronary Artery Bypass Graft using Low Osmolar Contrast (ICD-10-PCS; 2018-04-05)
DX: I25.10 Atherosclerotic heart disease of native coronary artery without angina pectoris (principal); I50.31 Acute diastolic (congestive) heart failure; I10 Essential (primary) hypertension; E11.9 Type 2 diabetes mellitus without complications; K57.30 Diverticulosis of large intestine without perforation or abscess without bleeding; E78.00 Pure hypercholesterolemia, unspecified; Z87.442 Personal history of urinary calculi; Z82.49 Family history of ischemic heart disease and other diseases of the circulatory system; Z83.3 Family history of diabetes mellitus; Z95.1 Presence of aortocoronary bypass graft; Z79.899 Other long term (current) drug therapy; Z79.4 Long term (current) use of insulin
CPT/HCPCS: 36415; 71045; 74176; 78452; 80048; 80061; 81001; 82550; 82553; 82962; 84484; 85025; 85347; 85379; 85610; 85730; 92928; 92978; 93005; 93010; 93017; 93306; 93459; G0378; A9270-GY; A9502; C1725; C1753; C1769; C1874; C1887; C1894; C9600; J1644; J1650; J1815; J2250; J2270; J2785; J3010; J7030; J7040; Q9967

== ENCOUNTER 2018-07-12 09:21 | Outpatient (CLI) | payer MEDICARE ==
[2018-07-12 11:08] LABS: Chol/HDL Ratio 2.73 %
[2018-07-16 15:03] LABS: Vitamin D, 25-OH, D2 <4 ng/mL
== END 2018-07-12 09:22 | disposition home or self-care (01) ==
LOC: LAB 09:21
PROVIDERS: ATTEND Internal Medicine
DX: E11.9 Type 2 diabetes mellitus without complications (principal); E78.5 Hyperlipidemia, unspecified; I10 Essential (primary) hypertension; E78.00 Pure hypercholesterolemia, unspecified; E66.9 Obesity, unspecified
CPT/HCPCS: 36415; 80061; 82306; 82607; 83036

== ENCOUNTER 2018-11-15 08:42 | Outpatient (CLI) | payer MEDICARE | END 2018-11-15 08:43 | disposition home or self-care (01) | LOC: LAB 08:42 | PROVIDERS: ATTEND Internal Medicine | DX: E11.9 Type 2 diabetes mellitus without complications (principal); E55.9 Vitamin D deficiency, unspecified; E78.00 Pure hypercholesterolemia, unspecified; E78.5 Hyperlipidemia, unspecified; I25.10 Atherosclerotic heart disease of native coronary artery without angina pectoris; F32.9 Major depressive disorder, single episode, unspecified; F41.9 Anxiety disorder, unspecified | CPT/HCPCS: 36415; 82306; 83036 ==

== ENCOUNTER 2018-11-18 14:11 | Emergency (ER) | payer MEDICARE ==
--- NOTE | 2018-11-18 14:32 | Emergency Department Report ---
Blank Doc - Documentation Documentation: 73-year-old male that presents with chest pain and epigastric abdominal pain. Also has SOB. This initial assessment/diagnostic orders/clinical plan/treatment(s) is/are subject to change based on patient's health status, clinical progression and re- assessment by fellow clinical providers in the ED. Further treatment and workup at subsequent clinical providers discretion. Patient/guardians urged not to elope from the ED as their condition may be serious if not clinically assessed and managed. Initial orders include: 1- Patient sent to MAIN ED for further evaluation and treatment 2- labs 3- UA 4- EKG 5- CXR
[2018-11-18 15:35] LABS: Basophils # (Auto) 0.1 K/mm3 (0.0-0.1); Basophils % (Auto) 0.5 % (0.0-1.8); Eosinophils # (Auto) 0.2 K/mm3 (0.0-0.4); Eosinophils % (Auto) 1.3 % (0.0-4.3); Hematocrit 43.2 % (35.5-45.6); Hemoglobin 14.1 gm/dl (11.8-15.2); Lymphocytes # (Auto) 1.7 K/mm3 (1.2-5.4); Lymphocytes % (Auto) 11.3 % (13.4-35.0); Mean Corpuscular HGB Conc 33 % (32-34); Mean Corpuscular Volume 85 fl (84-94); Monocytes # (Auto) 1.1 K/mm3 (0.0-0.8); Monocytes % (Auto) 7.3 % (0.0-7.3); Platelet Count 382 K/mm3 (140-440); Red Blood Count 5.07 M/mm3 (3.65-5.03); Red Cell Distribution Width 14.1 % (13.2-15.2)
--- NOTE | 2018-11-18 15:38 | XRay Report ---
CHEST 2 VIEWS INDICATION: Chest and abdomen pain for 2 days. COMPARISON: 04/02/2018 FINDINGS: Support devices: None. Heart: Within normal limits. CABG changes are noted. Lungs/pleura: No acute air space or interstitial disease. Minor discoid atelectasis is noted at the right lung base. No evidence for infiltrate, pleural effusion or pneumothorax. Additional findings: None. IMPRESSION: No acute findings. Signer Name: Max Sanchez Jr, MD Signed: 11/18/2018 3:33 PM Workstation Name: [id number]
[2018-11-18 15:47] LABS: INR 1.06 (0.87-1.13)
[2018-11-18 15:48] LABS: Partial Thromboplastin Time 29.5 Sec. (24.2-36.6)
[2018-11-18 15:54] LABS: BUN/Creatinine Ratio 15; Blood Urea Nitrogen 16 mg/dL (9-20); Calcium 9.9 mg/dL (8.4-10.2); Hemolysis Index 11
[2018-11-18 16:00] LABS: Alanine Aminotransferase 26 units/L (7-56); Albumin 4.5 g/dL (3.9-5)
[2018-11-18 16:02] LABS: Bilirubin,Direct < 0.2 mg/dL (0-0.2)
[2018-11-18] MEDS ORDERED: MORPHINE IV ONE (20:36)
[2018-11-18] MEDS ORDERED: ZOFRAN IV ONE ×2 (20:36→22:08)
[2018-11-18] MEDS ORDERED: NACL 0.9% 1000 ML 1,000 ML IV ONE (20:37)
--- NOTE | 2018-11-18 20:41 | Emergency Department Report ---
<ROSALINE ROCA - Last Filed: 11/19/18 04:23> ED Abdominal Pain HPI - General Chief Complaint: Chest Pain Stated Complaint: CHEST PAIN/STOMACH PAIN/N Time Seen by Provider: 11/18/18 14:31 - Related Data Home Medications Medication Instructions Recorded Confirmed Last Taken glipiZIDE [Glucotrol] 5 mg PO BID 10/24/18 10/24/18 Unknown metFORMIN [Glucophage] 500 mg PO BID 10/24/18 10/24/18 Unknown Previous Rx's Medication Instructions Recorded Last Taken Type Ferrous Sulfate [Feosol 325 MG tab] 325 mg PO BID #60 tablet 06/05/17 Unknown Rx traMADol [Ultram 50 MG tab] 100 mg PO BID #30 tablet 01/28/18 Unknown Rx Aspirin EC [Halfprin EC] 81 mg PO QDAY #30 tablet. 04/06/18 Unknown Rx AtorvaSTATin [Lipitor] 40 mg PO QHS #30 tablet 04/06/18 Unknown Rx Clopidogrel [Plavix] 75 mg PO QDAY #30 tablet 04/06/18 Unknown Rx Metoprolol [Lopressor TAB] 25 mg PO BID #60 tablet 04/06/18 Unknown Rx Metoclopramide HCl [Reglan TAB] 5 mg PO TIDAC #14 tablet 10/28/18 Unknown Rx Dicyclomine [Bentyl] 20 mg PO QID #30 tablet 11/19/18 Unknown Rx Allergies Allergy/AdvReac Type Severity Reaction Status Date / Time No Known Allergies Allergy Verified 04/26/15 11:15 ED Past Medical Hx - Medications Home Medications: Home Medications Medication Instructions Recorded Confirmed Last Taken Type Ferrous Sulfate [Feosol 325 MG tab] 325 mg PO BID #60 tablet 06/05/17 10/24/18 Unknown Rx traMADol [Ultram 50 MG tab] 100 mg PO BID #30 tablet 01/28/18 10/24/18 Unknown Rx Aspirin EC [Halfprin EC] 81 mg PO QDAY #30 tablet. 04/06/18 10/24/18 Unknown Rx AtorvaSTATin [Lipitor] 40 mg PO QHS #30 tablet 04/06/18 10/24/18 Unknown Rx Clopidogrel [Plavix] 75 mg PO QDAY #30 tablet 04/06/18 10/24/18 Unknown Rx Metoprolol [Lopressor TAB] 25 mg PO BID #60 tablet 04/06/18 10/24/18 Unknown Rx glipiZIDE [Glucotrol] 5 mg PO BID 10/24/18 10/24/18 Unknown History metFORMIN [Glucophage] 500 mg PO BID 10/24/18 10/24/18 Unknown History Metoclopramide HCl [Reglan TAB] 5 mg PO TIDAC #14 tablet 10/28/18 Unknown Rx Dicyclomine [Bentyl] 20 mg PO QID #30 tablet 11/19/18 Unknown Rx ED Medical Decision Making - Lab Data Result diagrams: 11/18/18 14:57 11/18/18 14:57 ED Disposition Clinical Impression: Abdominal pain Qualifiers: Abdominal location: generalized Qualified Code(s): R10.84 - Generalized abdominal pain Disposition: DC- TO HOME OR SELFCARE Condition: Stable Instructions: Abdominal Pain (ED) Prescriptions: Dicyclomine [Bentyl] 20 mg PO QID #30 tablet Referrals: PRIMARY CARE, [Primary Care Provider] - 3-5 Days <ROS WEATHERS - Last Filed: 11/20/18 06:03> ED Abdominal Pain HPI - General Source: patient Mode of arrival: Ambulatory Limitations: No Limitations - History of Present Illness Initial Comments: Patient is 73 years old male with history of CABG, recent diagnosis of bowel obstruction. Patient presented to the emergency room complaining of abdominal pain. Patient stated that pain started this morning around 9:00. Patient describes his pain as diffuse associated his nausea but no vomiting. Patient stated that his symptoms similar to his last admission. Patient denied any fever or chills. He stated that he had a bowel movement this morning and last night. Patient also stated that he experienced some chest pain with this abdominal pain this morning. Complaint: abdominal pain ED Review of Systems ROS: Stated complaint: CHEST PAIN/STOMACH PAIN/N Other details as noted in HPI Comment: All other systems reviewed and negative Constitutional: denies: chills, fever Respiratory: denies: shortness of breath Cardiovascular: chest pain Gastrointestinal: abdominal pain, nausea. denies: vomiting, diarrhea, constipation, hematemesis, melena, hematochezia Musculoskeletal: denies: back pain Neurological: denies: headache, weakness, numbness, paresthesias, confusion, abnormal gait ED Past Medical Hx - Past Medical History Hx Hypertension: Yes Hx Diabetes: Yes Hx Deep Vein Thrombosis: No Hx Sickle Cell Disease: No Hx Kidney Stones: Yes (LEFT) Hx HIV: No Additional medical history: DIVERTICULITIS, ANEMIA AND BLOOD TRANSFUSION - Surgical History Hx Open Heart Surgery: Yes (X2 PROCEDURES) Hx Pacemaker: No Hx Internal Defibrillator: No Additional Surgical History: LEFT EAR SURGERY. CABG X2. 02/26/2015. [facility]. Cardiac Cath 02/21/2015 here - Social History Smoking Status: Never Smoker Substance Use Type: None ED Physical Exam - General Limitations: No Limitations General appearance: alert, in no apparent distress - Head Head exam: Present: atraumatic, normocephalic, normal inspection - Eye Eye exam: Present: normal appearance, PERRL - ENT ENT exam: Present: normal exam, normal orophraynx, mucous membranes moist - Neck Neck exam: Present: normal inspection, full ROM. Absent: tenderness, meningismus, lymphadenopathy, thyromegaly - Respiratory Respiratory exam: Present: normal lung sounds bilaterally - Cardiovascular Cardiovascular Exam: Present: regular rate, normal rhythm, normal heart sounds - GI/Abdominal GI/Abdominal exam: Present: soft, normal bowel sounds. Absent: distended, tenderness, guarding, rebound, rigid, organomegaly, mass, bruit, pulsatile mass, hernia - Extremities Exam Extremities exam: Present: normal inspection, full ROM, normal capillary refill. Absent: tenderness, pedal edema, calf tenderness - Back Exam Back exam: Present: normal inspection, full ROM. Absent: CVA tenderness (R), CVA tenderness (L), muscle spasm, paraspinal tenderness, vertebral tenderness - Neurological Exam Neurological exam: Present: alert, oriented X3, CN II-XII intact, normal gait, reflexes normal - Psychiatric Psychiatric exam: Present: normal mood - Skin Skin exam: Present: warm, intact, normal color ED Course Vital Signs 11/18/18 11/18/18 11/18/18 14:32 20:49 22:01 Temperature 97.4 F L 98.3 F Pulse Rate 99 H 92 H 87 Respiratory 14 13 18 Rate Blood Pressure 153/89 Blood Pressure 99/62 153/89 [Left] O2 Sat by Pulse 99 95 95 Oximetry 11/18/18 11/18/18 11/18/18 22:30 23:17 23:30 Temperature Pulse Rate 86 84 84 Respiratory 21 15 22 Rate Blood Pressure 129/73 121/64 123/69 Blood Pressure [Left] O2 Sat by Pulse 95 95 95 Oximetry 11/19/18 11/19/18 11/19/18 00:01 00:19 00:30 Temperature Pulse Rate 86 81 91 H Respiratory 23 20 14 Rate Blood Pressure 123/69 123/69 124/61 Blood Pressure [Left] O2 Sat by Pulse 94 95 95 Oximetry 11/19/18 11/19/18 11/19/18 01:00 01:30 02:00 Temperature Pulse Rate 81 76 75 Respiratory 17 18 18 Rate Blood Pressure 118/65 125/64 121/66 Blood Pressure [Left] O2 Sat by Pulse 95 96 97 Oximetry 11/19/18 11/19/18 11/19/18 02:30 03:00 03:30 Temperature Pulse Rate 72 74 72 Respiratory 20 21 16 Rate Blood Pressure 123/68 122/64 118/61 Blood Pressure [Left] O2 Sat by Pulse 98 96 96 Oximetry 11/19/18 11/19/18 04:00 04:31 Temperature Pulse Rate 73 82 Respiratory 19 14 Rate Blood Pressure 127/67 108/42 Blood Pressure [Left] O2 Sat by Pulse 97 Oximetry ED Medical Decision Making - Lab Data Result diagrams: 11/18/18 14:57 11/18/18 14:57 Critical care attestation.: If time is entered above; I have spent that time in minutes in the direct care of this critically ill patient, excluding procedure time. ED Disposition Is pt being admited?: No
[2018-11-18] MEDS ORDERED: ZOSYN/NS 3.375GM/50ML 3.375 GM/50 ML BAG IV ONE (21:46)
--- NOTE | 2018-11-19 02:33 | Cat Scan Report ---
CT ABDOMEN AND PELVIS WITHOUT CONTRAST INDICATION: abdominal pain/history of bowel obstruction CONTRAST: 100 cc Omnipaque 300 IV, oral COMPARISON: 10/25/[address] scans at this location are performed using CT dose reduction for ALARA by means of automated e xposure control. FINDINGS: Mild bibasilar ectatic changes are seen. No pneumoperitoneum is seen. Small fatty midline a bdominal wall hernias are seen again. Mild fatty infiltration of the liver is seen without obvious fo noah lesion and without significant enlargement. Spleen appears within normal limits. Small cysts are seen in both kidneys again. Mild left nephrolithiasis is seen. No obstructive changes are noted. Uret ers appear within normal limits. No lymphadenopathy is seen. The fluid is noted. Colonic diverticulos is is seen without evidence of diverticulitis. No evidence of bowel obstruction is seen. Small bowel prominent seen previously has resolved. Appendix extends far into the right upper quadrant but appear s within normal limits. Gallbladder shows no abnormalities. Prostate is slightly enlarged. IMPRESSION: No acute abnormalities are seen Signer Name: Buster Bautista MD Signed: 11/19/2018 2:29 AM Workstation Name: [id number]
[2018-11-19 05:08] VITALS: BP 108/42
== END 2018-11-19 04:55 | disposition home or self-care (01) ==
LOC: ED 14:11
DX: R10.9 Unspecified abdominal pain (principal); R11.0 Nausea; I10 Essential (primary) hypertension; E11.9 Type 2 diabetes mellitus without complications; Z87.442 Personal history of urinary calculi; Z86.2 Personal history of diseases of the blood and blood-forming organs and certain disorders involving the immune mechanism; Z95.1 Presence of aortocoronary bypass graft
CPT/HCPCS: 36415; 71046; 74177; 80048; 80076; 83690; 84484; 85025; 85610; 85730; 87040; 93005; 93010; 96365; 96375; 96376; 99285; J2270; J2405; J2543; J7030; Q9967

== ENCOUNTER 2019-03-01 10:09 | Emergency (ER) | payer MEDICARE ==
[2019-03-01 11:22] LABS: Basophils # (Auto) 0.1 K/mm3 (0.0-0.1); Basophils % (Auto) 0.5 % (0.0-1.8); Eosinophils # (Auto) 0.1 K/mm3 (0.0-0.4); Eosinophils % (Auto) 1.2 % (0.0-4.3); Hematocrit 46.8 % (35.5-45.6); Hemoglobin 15.3 gm/dl (11.8-15.2); Lymphocytes # (Auto) 1.5 K/mm3 (1.2-5.4); Mean Corpuscular HGB Conc 33 % (32-34); Mean Corpuscular Volume 88 fl (84-94); Monocytes # (Auto) 0.9 K/mm3 (0.0-0.8); Monocytes % (Auto) 7.7 % (0.0-7.3); Platelet Count 350 K/mm3 (140-440); Red Blood Count 5.34 M/mm3 (3.65-5.03); Red Cell Distribution Width 14.4 % (13.2-15.2)
[2019-03-01 11:44] LABS: BUN/Creatinine Ratio 23; Blood Urea Nitrogen 18 mg/dL (9-20); Calcium 9.5 mg/dL (8.4-10.2); Hemolysis Index 18
--- NOTE | 2019-03-01 12:30 | Emergency Department Report ---
ED General Adult HPI - General Chief complaint: Chest Pain Stated complaint: CHEST PAIN/UPPER STOMACH PAIN Time Seen by Provider: 03/01/19 12:04 Source: patient Mode of arrival: Ambulatory Limitations: No Limitations - History of Present Illness Initial comments: Patient is a 73-year-old male who presents emergency room with complaints of upper abdominal pain that began last night. He has associated nausea. Patient states that he is also had substernal chest pain for 2-3 weeks which he describes a sharp pain that lasts approximately an hour. He denies any chest pain currently. He denies any vomiting, diarrhea, fever, shortness of breath, recent illness. He states he had a normal bowel movement today. He has a past medical history of bowel obstruction, CAD, diabetes, hypertension, diverticulitis, anemia. Patient had a cardiac stent placed in March 2018 and has history of CABG. Severity scale (0 -10): 0 - Related Data Home Medications Medication Instructions Recorded Confirmed Last Taken glipiZIDE [Glucotrol] 5 mg PO BID 10/24/18 10/24/18 Unknown metFORMIN [Glucophage] 500 mg PO BID 10/24/18 10/24/18 Unknown Previous Rx's Medication Instructions Recorded Last Taken Type Ferrous Sulfate [Feosol 325 MG tab] 325 mg PO BID #60 tablet 06/05/17 Unknown Rx traMADoL [Ultram 50 MG tab] 100 mg PO BID #30 tablet 01/28/18 Unknown Rx Aspirin EC [Halfprin EC] 81 mg PO QDAY #30 tablet. 04/06/18 Unknown Rx AtorvaSTATin [Lipitor] 40 mg PO QHS #30 tablet 04/06/18 Unknown Rx Clopidogrel [Plavix] 75 mg PO QDAY #30 tablet 04/06/18 Unknown Rx Metoprolol [Lopressor TAB] 25 mg PO BID #60 tablet 04/06/18 Unknown Rx Metoclopramide HCl [Reglan TAB] 5 mg PO TIDAC #14 tablet 10/28/18 Unknown Rx Dicyclomine [Bentyl] 20 mg PO QID #30 tablet 11/19/18 Unknown Rx Allergies Allergy/AdvReac Type Severity Reaction Status Date / Time No Known Allergies Allergy Verified 03/01/19 10:15 ED Review of Systems ROS: Stated complaint: CHEST PAIN/UPPER STOMACH PAIN Other details as noted in HPI Comment: All other systems reviewed and negative ED Past Medical Hx - Past Medical History Previous Medical History?: Yes Hx Hypertension: Yes Hx Diabetes: Yes Hx Deep Vein Thrombosis: No Hx Sickle Cell Disease: No Hx Kidney Stones: Yes (LEFT) Hx HIV: No Additional medical history: DIVERTICULITIS, ANEMIA AND BLOOD TRANSFUSION - Surgical History Past Surgical History?: Yes Hx Open Heart Surgery: Yes (X2 PROCEDURES) Hx Pacemaker: No Hx Internal Defibrillator: No Additional Surgical History: LEFT EAR SURGERY. CABG X2. 02/26/2015. [facility]. Cardiac Cath 02/21/2015 here - Social History Smoking Status: Never Smoker Substance Use Type: None - Medications Home Medications: Home Medications Medication Instructions Recorded Confirmed Last Taken Type Ferrous Sulfate [Feosol 325 MG tab] 325 mg PO BID #60 tablet 06/05/17 10/24/18 Unknown Rx traMADoL [Ultram 50 MG tab] 100 mg PO BID #30 tablet 01/28/18 10/24/18 Unknown Rx Aspirin EC [Halfprin EC] 81 mg PO QDAY #30 tablet. 04/06/18 10/24/18 Unknown Rx AtorvaSTATin [Lipitor] 40 mg PO QHS #30 tablet 04/06/18 10/24/18 Unknown Rx Clopidogrel [Plavix] 75 mg PO QDAY #30 tablet 04/06/18 10/24/18 Unknown Rx Metoprolol [Lopressor TAB] 25 mg PO BID #60 tablet 04/06/18 10/24/18 Unknown Rx glipiZIDE [Glucotrol] 5 mg PO BID 10/24/18 10/24/18 Unknown History metFORMIN [Glucophage] 500 mg PO BID 10/24/18 10/24/18 Unknown History Metoclopramide HCl [Reglan TAB] 5 mg PO TIDAC #14 tablet 10/28/18 Unknown Rx Dicyclomine [Bentyl] 20 mg PO QID #30 tablet 11/19/18 Unknown Rx ED Physical Exam - General Limitations: No Limitations General appearance: alert, in no apparent distress - Head Head exam: Present: atraumatic, normocephalic - Eye Eye exam: Present: normal appearance - ENT ENT exam: Present: mucous membranes moist - Respiratory Respiratory exam: Present: normal lung sounds bilaterally. Absent: respiratory distress, wheezes, rales, rhonchi, stridor, chest wall tenderness, accessory muscle use, decreased breath sounds, prolonged expiratory - Cardiovascular Cardiovascular Exam: Present: regular rate, normal rhythm, normal heart sounds. Absent: systolic murmur, diastolic murmur, rubs, gallop - GI/Abdominal GI/Abdominal exam: Present: soft, tenderness (generalized upper abdomen), normal bowel sounds. Absent: distended, guarding, rebound, rigid - Neurological Exam Neurological exam: Present: alert, oriented X3 - Psychiatric Psychiatric exam: Present: normal affect, normal mood - Skin Skin exam: Present: warm, dry, intact ED Course Vital Signs 03/01/19 03/01/19 03/01/19 10:11 11:48 12:02 Temperature 97.3 F L 98 F Pulse Rate 98 H 89 89 Respiratory 18 19 17 Rate Blood Pressure Blood Pressure 139/83 122/79 [Right] O2 Sat by Pulse 99 95 95 Oximetry 03/01/19 03/01/19 12:30 14:46 Temperature Pulse Rate 81 75 Respiratory 22 19 Rate Blood Pressure 120/65 129/75 Blood Pressure [Right] O2 Sat by Pulse 94 98 Oximetry ED Medical Decision Making - Lab Data Result diagrams: 03/01/19 11:06 03/01/19 11:06 Lab Results 03/01/19 03/01/19 03/01/19 Range/Units 11:06 11:06 11:06 WBC 11.6 H (4.5-11.0) K/mm3 RBC 5.34 H (3.65-5.03) M/mm3 Hgb 15.3 H (11.8-15.2) gm/dl Hct 46.8 H (35.5-45.6) % MCV 88 (84-94) fl MCH 29 (28-32) pg MCHC 33 (32-34) % RDW 14.4 (13.2-15.2) % Plt Count 350 (140-440) K/mm3 Lymph % (Auto) 13.0 L (13.4-35.0) % [place] % (Auto) 7.7 H (0.0-7.3) % Eos % (Auto) 1.2 (0.0-4.3) % Baso % (Auto) 0.5 (0.0-1.8) % Lymph # 1.5 (1.2-5.4) K/mm3 [place] # 0.9 H (0.0-0.8) K/mm3 Eos # 0.1 (0.0-0.4) K/mm3 Baso # 0.1 (0.0-0.1) K/mm3 Seg Neutrophils % 77.6 H (40.0-70.0) % Seg Neutrophils # 9.0 H (1.8-7.7) K/mm3 Sodium 136 L (137-145) mmol/L Potassium 4.5 (3.6-5.0) mmol/L Chloride 97.7 L (98-107) mmol/L Carbon Dioxide 21 L (22-30) mmol/L Anion Gap 22 mmol/L BUN 18 (9-20) mg/dL Creatinine 0.8 (0.8-1.5) mg/dL Estimated GFR > 60 ml/min BUN/Creatinine Ratio 23 % Glucose 248 H (75-100) mg/dL Calcium 9.5 (8.4-10.2) mg/dL Total Bilirubin 0.50 (0.1-1.2) mg/dL Direct Bilirubin < 0.2 (0-0.2) mg/dL Indirect Bilirubin 0.3 mg/dL AST 27 (5-40) units/L ALT 34 (7-56) units/L Alkaline Phosphatase 87 (35-129) units/L Troponin T < 0.010 (0.00-0.029) ng/mL Total Protein 7.6 (6.3-8.2) g/dL Albumin 4.5 (3.9-5) g/dL Albumin/Globulin Ratio 1.5 % Lipase 35 (13-60) units/L 12/24/19 Range/Units 13:39 WBC (4.5-11.0) K/mm3 RBC (3.65-5.03) M/mm3 Hgb (11.8-15.2) gm/dl Hct (35.5-45.6) % MCV (84-94) fl MCH (28-32) pg MCHC (32-34) % RDW (13.2-15.2) % Plt Count (140-440) K/mm3 Lymph % (Auto) (13.4-35.0) % [place] % (Auto) (0.0-7.3) % Eos % (Auto) (0.0-4.3) % Baso % (Auto) (0.0-1.8) % Lymph # (1.2-5.4) K/mm3 [place] # (0.0-0.8) K/mm3 Eos # (0.0-0.4) K/mm3 Baso # (0.0-0.1) K/mm3 Seg Neutrophils % (40.0-70.0) % Seg Neutrophils # (1.8-7.7) K/mm3 Sodium (137-145) mmol/L Potassium (3.6-5.0) mmol/L Chloride (98-107) mmol/L Carbon Dioxide (22-30) mmol/L Anion Gap mmol/L BUN (9-20) mg/dL Creatinine (0.8-1.5) mg/dL Estimated GFR ml/min BUN/Creatinine Ratio % Glucose (75-100) mg/dL Calcium (8.4-10.2) mg/dL Total Bilirubin (0.1-1.2) mg/dL Direct Bilirubin (0-0.2) mg/dL Indirect Bilirubin mg/dL AST (5-40) units/L ALT (7-56) units/L Alkaline Phosphatase (35-129) units/L Troponin T < 0.010 (0.00-0.029) ng/mL Total Protein (6.3-8.2) g/dL Albumin (3.9-5) g/dL Albumin/Globulin Ratio % Lipase (13-60) units/L - Radiology Data Radiology results: report reviewed CT abdomen pelvis w con INDICATION / CLINICAL INFORMATION: upper abd pain, hx of obstruction. TECHNIQUE: All CT scans at this location are performed using CT dose reduction for ALARA by means of automated exposure control. COMPARISON: 11/18/2018 FINDINGS: No acute findings in either lower lung. ABDOMEN: The gallbladder, liver, spleen and pancreas are normal. A punctate calcification is seen in the intrarenal collecting system of the right kidney without hydronephrosis. Small renal cysts are identified bilaterally, no other renal abnormality. Adrenal glands are normal. There is mild distention of proximal small bowel without clear-cut transition zone. Pelvis: Right and left-sided colonic diverticulosis. Normal appendix, located in the right upper quadrant. No dependent fluid collections are identified. No skeletal abnormality. IMPRESSION: 1. Nonspecific fluid distention of small bowel without definite evidence of mechanical obstruction. 2. Right and left-sided colonic diverticulosis. 3. Right nephrolithiasis without hydronephrosis. Signer Name: Ezekiel Orozco MD Signed: 03/01/2019 2:27 PM Workstation Name: [id number] Transcribed By: OPAL Dictated By: Ezekiel Orozco MD Electronically Authenticated By: Ezekiel Orozco MD Signed Date/Time: 03/01/19 1427 DD/ TD/TT: - Medical Decision Making Patient is a 73-year-old male who presents emergency room with complaints of upper abdominal pain that began last night. He has associated nausea. Patient states that he is also had substernal chest pain for 2-3 weeks which he describes a sharp pain that lasts approximately an hour. He denies any chest pain currently. He denies any vomiting, diarrhea, fever, shortness of breath, recent illness. He states he had a normal bowel movement today. He has a past medical history of bowel obstruction, CAD, diabetes, hypertension, diverticulitis, anemia. Patient had a cardiac stent placed in March 2018 and has history of CABG. vitals are normal. CBC with mildly elevated white count. CMP mild dehydration and hyperglycemia at 248. Troponin is negative 2. CT abd pelvis: 1. Nonspecific fluid distention of small bowel without definite evidence of mechanical obstruction. 2. Right and left-sided colonic diverticulosis. 3. Right nephrolithiasis without hydronephrosis. Patient is high risk for cardiac disease will need further evaluation in the hospital. Dr. Perez looked at patient CT images and believes pt has partial SBO. Advised patient that he would need to be admitted to the hospital. pt states that he must go home and give his cat an insulin shot and will return in 1 hour. advised pt he would need to sign out against medical advice. discussed with pt the risks associated with leaving against medical advice including , permanent disability, loss of quality of life. The patient is alert and oriented 3. The patient exhibits decision-making capacity. The patient is free from distracting injury. The risk of leaving without a complete medical examination and AGAINST MEDICAL ADVICE were explained to the patient and they included , disability, paralysis, permanent loss of quality of life. The patient verbalized understanding to these and was able to articulate these risks in their own words and this conversation was witnessed by JOSELYN Gonsales. - Differential Diagnosis SBO, large bowel obstruction, ACS, pancreatitis, cholecystitis, PUD, GERD Critical care attestation.: If time is entered above; I have spent that time in minutes in the direct care of this critically ill patient, excluding procedure time. ED Disposition Clinical Impression: Partial small bowel obstruction Abdominal pain Qualifiers: Abdominal location: upper abdomen, unspecified Qualified Code(s): R10.10 - Upper abdominal pain, unspecified Chest pain Qualifiers: Chest pain type: unspecified Qualified Code(s): R07.9 - Chest pain, unspecified Disposition: LEFT AGAINST MED ADVICE Is pt being admited?: No Does the pt Need Aspirin: No Condition: Undetermined Instructions: Chest Pain (ED), Bowel Obstruction (ED) Additional Instructions: Please follow-up with a GI doctor and a flavor extractor as soon as possible. You are leaving today AGAINST MEDICAL ADVICE and risks include , permanent disability, loss of quality of life. Please return to the emergency room immediately for admission. Referrals: PRIMARY CARE, [Referring] - [facility] [Provider Group] - FLAKITO KATZ MD [Staff Physician] - [facility] Forms: AMA Form Time of Disposition: 15:07 Print Language: NIGERIEN
[2019-03-01] MEDS ORDERED: MORPHINE 4 MG/1 ML INJ IV ONE (12:31)
[2019-03-01] MEDS ORDERED: SODIUM CHLORIDE 0.9% 1000 ML 1,000 ML IV ONE (12:31)
[2019-03-01] MEDS ORDERED: ONDANSETRON 4 MG/2 ML INJ IV ONE (12:31)
[2019-03-01 12:55] LABS: Alanine Aminotransferase 34 units/L (7-56); Albumin 4.5 g/dL (3.9-5)
[2019-03-01 12:56] LABS: Bilirubin,Direct < 0.2 mg/dL (0-0.2)
--- NOTE | 2019-03-01 14:31 | Cat Scan Report ---
CT abdomen pelvis w con INDICATION / CLINICAL INFORMATION: upper abd pain, hx of obstruction. TECHNIQUE: All CT scans at this location are performed using CT dose reduction for ALARA by means of automated e xposure control. COMPARISON: 11/18/2018 FINDINGS: No acute findings in either lower lung. ABDOMEN: The gallbladder, liver, spleen and pancreas are normal. A punctate calcification is seen in the intrarenal collecting system of the right kidney without hydr onephrosis. Small renal cysts are identified bilaterally, no other renal abnormality. Adrenal glands are normal. There is mild distention of proximal small bowel without clear-cut transition zone. Pelvis: Right and left-sided colonic diverticulosis. Normal appendix, located in the right upper quadrant. No dependent fluid collections are identified. No skeletal abnormality. IMPRESSION: 1. Nonspecific fluid distention of small bowel without definite evidence of mechanical obstruction. 2. Right and left-sided colonic diverticulosis. 3. Right nephrolithiasis without hydronephrosis. Signer Name: Ezekiel Orozco MD Signed: 03/01/2019 2:27 PM Workstation Name: [id number]
[2019-03-01 14:56] VITALS: BP 129/75
--- NOTE | 2019-03-01 19:22 | History and Physical Report ---
History of Present Illness Chief complaint: My stomach hurts History of present illness: 73-year-old male with CAD status post CABG,status post cardiac cath, status post stent placement currently on an anticoagulation, HTN, DM,Nephrolithiasis, Diverticulitis, Anemia presents to [facility] for evaluation. Patient states that he has experienced nausea with multiple episodes of vomiting and abdominal pain over the past 1 day with progressively worsening symptoms over the past 12 hours. Patient states that his abdominal pain is rated at 10 out of 10. Pain is constant and worsened with movement and relieved with rest. Pain is diffuse and is worsened with diet. Patient is transported to [facility] via private vehicle. Patient is seen and evaluated in the emergency department. Patient found to have evidence of a partial bowel obstruction. Patient is placed in observation status and admitted to the [facility] unit. Surgery team consulted in the emergency department. Patient denies fever chills chest pains palpitations syncope, productive cough, skin rash, or recent ill contacts. Prior admission on 10/24/2018 reviewed. All listed medication is reconciled at time of admission. . Past History Past Medical History: CAD, other (see hpi) Past Surgical History: CABG Social history: . denies: smoking, alcohol abuse, prescription drug abuse Family history: diabetes, hypertension Medications and Allergies Allergies Allergy/AdvReac Type Severity Reaction Status Date / Time No Known Allergies Allergy Verified 03/01/19 10:15 Home Medications Medication Instructions Recorded Confirmed Last Taken Type Ferrous Sulfate [Feosol 325 MG tab] 325 mg PO BID #60 tablet 06/05/17 10/24/18 Unknown Rx traMADoL [Ultram 50 MG tab] 100 mg PO BID #30 tablet 01/28/18 10/24/18 Unknown Rx Aspirin EC [Halfprin EC] 81 mg PO QDAY #30 tablet. 04/06/18 10/24/18 Unknown Rx AtorvaSTATin [Lipitor] 40 mg PO QHS #30 tablet 04/06/18 10/24/18 Unknown Rx Clopidogrel [Plavix] 75 mg PO QDAY #30 tablet 04/06/18 10/24/18 Unknown Rx Metoprolol [Lopressor TAB] 25 mg PO BID #60 tablet 04/06/18 10/24/18 Unknown Rx glipiZIDE [Glucotrol] 5 mg PO BID 10/24/18 10/24/18 Unknown History metFORMIN [Glucophage] 500 mg PO BID 10/24/18 10/24/18 Unknown History Metoclopramide HCl [Reglan TAB] 5 mg PO TIDAC #14 tablet 10/28/18 Unknown Rx Dicyclomine [Bentyl] 20 mg PO QID #30 tablet 11/19/18 Unknown Rx Review of Systems Constitutional: no weight gain, no fever Ears, nose, mouth and throat: no ear pain, no tinnitis, no decreased hearing Cardiovascular: no chest pain, no palpitations, no rapid/irregular heart beat, no syncope Respiratory: no cough, no cough with sputum Gastrointestinal: abdominal pain, nausea, vomiting, no diarrhea, no constipation, no BRBPR, no melena Genitourinary Male: no hematuria, no urinary frequency, no urinary hesitancy, no nocturia Rectal: no pain Musculoskeletal: no shooting arm pain, no low back pain, no shooting leg pain, no redness of joints Integumentary: no rash, no redness, no sores, no wounds, no boils Neurological: no head injury, no paralysis, no tingling, no seizures, no syncope Psychiatric: no anxiety, no change in sleep habits, no insomnia, no change in appetite, no change in libido, no disorientation Endocrine: no cold intolerance, no heat intolerance, no polyphagia, no polydipsia, no excessive sweating, no flushing Hematologic/Lymphatic: no easy bruising, no lymphadenopathy Allergic/Immunologic: no urticaria, no allergic rhinitis, no persistent infections, no anaphylaxis Exam - Constitutional Vitals: Temp Pulse Resp BP Pulse Ox 98 F 75 19 129/75 98 03/01/19 12:02 03/01/19 14:46 03/01/19 14:46 03/01/19 14:46 03/01/19 14:46 General appearance: Present: mild distress - EENT Eyes: Present: PERRL ENT: hearing intact, clear oral mucosa - Neck Neck: Present: supple, normal ROM - Respiratory Respiratory effort: normal Respiratory: bilateral: CTA - Cardiovascular Heart Sounds: Present: S1 & S2. Absent: rub, click - Extremities Extremities: pulses symmetrical, No edema Peripheral Pulses: within normal limits - Abdominal General gastrointestinal: Present: soft, non-tender, non-distended, normal bowel sounds Male genitourinary: Present: normal - Integumentary Integumentary: Present: clear, warm, dry - Musculoskeletal Musculoskeletal: gait normal, strength equal bilaterally - Psychiatric Psychiatric: appropriate mood/affect, intact judgment & insight - Neurologic Neurologic: CNII-XII intact, moves all extremities Results - Labs CBC & Chem 7: 03/01/19 11:06 03/01/19 11:06 Labs: Abnormal lab results 03/01/19 03/01/19 Range/Units 11:06 11:06 WBC 11.6 H (4.5-11.0) K/mm3 RBC 5.34 H (3.65-5.03) M/mm3 Hgb 15.3 H (11.8-15.2) gm/dl Hct 46.8 H (35.5-45.6) % Lymph % (Auto) 13.0 L (13.4-35.0) % [place] % (Auto) 7.7 H (0.0-7.3) % [place] # 0.9 H (0.0-0.8) K/mm3 Seg Neutrophils % 77.6 H (40.0-70.0) % Seg Neutrophils # 9.0 H (1.8-7.7) K/mm3 Sodium 136 L (137-145) mmol/L Chloride 97.7 L (98-107) mmol/L Carbon Dioxide 21 L (22-30) mmol/L Glucose 248 H (75-100) mg/dL Assessment and Plan - Patient Problems (1) Partial bowel obstruction Status: Acute Plan to address problem: CT abdomen and pelvis, surgery team consulted in ED, bowel rest, serial abdomina l exam, pain control, supportive care, repeat abdominal x-ray in a.m. (2) HTN (hypertension) Status: Acute Qualifiers: Hypertension type: essential hypertension Qualified Code(s): I10 - Essential (primary) hypertension Plan to address problem: Monitor blood pressure every shift, continue medical management. (3) Diabetes Status: Acute Plan to address problem: Consistent carbohydrate diet, sliding scale insulin therapy, hypoglycemia protocol, Accu-Cheks. (4) CAD (coronary artery disease) Status: Acute Qualifiers: Associated angina: without angina Plan to address problem: Risk factor reduction, low-fat low-cholesterol diet. (5) Anemia Status: Acute Plan to address problem: Currently resolved and stable. Repeat CBC in a.m. (6) DVT prophylaxis Status: Acute Plan to address problem: SCD to bilateral lower extremities while in bed, patient is ambulatory.
[2019-03-01] MEDS ORDERED: ONDANSETRON 4 MG/2 ML INJ IV PRN (19:24)
[2019-03-01] MEDS ORDERED: ALBUTEROL 2.5 MG/3 ML NEBU IH PRN (19:24)
[2019-03-01] MEDS ORDERED: ACETAMINOPHEN 325 MG TAB PO PRN (19:24)
[2019-03-01] MEDS ORDERED: DEXTROSE 50% IN WATER (25GM) 50 ML SYRINGE IV PRN (19:27)
[2019-03-01] MEDS ORDERED: SODIUM CHLORIDE 0.45% 1000 ML 1,000 ML IV SCH (20:00)
[2019-03-01] MEDS ORDERED: METOPROLOL TARTRATE 25 MG TAB PO SCH (22:00)
[2019-03-01] MEDS ORDERED: FERROUS SULFATE 325 MG TAB PO SCH (22:00)
[2019-03-01] MEDS ORDERED: DICYCLOMINE 20 MG TAB PO SCH (22:00)
[2019-03-01] MEDS ORDERED: traMADol 50 MG TAB PO SCH (22:00)
[2019-03-02] MEDS ORDERED: INSULIN LISPRO 100 UNIT/ML SUB-Q SCH
[2019-03-02] MEDS ORDERED: METOCLOPRAMIDE 10 MG TAB PO SCH (07:30)
[2019-03-02] MEDS ORDERED: ASPIRIN EC 81 MG TAB PO SCH (10:00)
[2019-03-02] MEDS ORDERED: CLOPIDOGREL 75 MG TAB PO SCH (10:00)
== END 2019-03-01 15:29 | disposition left against medical advice (07) ==
LOC: ED 10:09
DX: R10.10 Upper abdominal pain, unspecified (principal); R07.89 Other chest pain; K56.600 Partial intestinal obstruction, unspecified as to cause
CPT/HCPCS: 36415; 71046; 74177; 80048; 80076; 83690; 84484; 85025; 93005; 93010; 96374; 96375; 99285; J2270; J2405; J7030

== ENCOUNTER 2019-03-01 16:49 | Inpatient (IN) | payer MEDICARE ==
--- NOTE | 2019-03-01 19:13 | Emergency Department Report ---
Chief Complaint: Abdominal Pain Stated Complaint: CHEST PAIN/STOMACH PAIN - HPI History of Present Illness: pt returned to the hospital and is agreeable with admission he states he continues to have nausea and abd pain and feels like he wants to vomit but is not able to 03/01/19 7:[address] Blair, general surgery regarding pt and she evaluated CT imaging, Dr. Blair recommends IVF, she states to hold on NGT for now, she states that if pt does vomit then to place NGT, will evaluate pt in the AM and advised to admit to hospital service 03/01/19 7:[address] Valderrama, hospitalist who will accept and resume care of patient and will admit to the hospital pt admitted for possible early partial SBO vs ileus admit to hospital fair condition please see earlier note for full HPI - Exam Vital Signs: Vital Signs 03/01/19 17:46 Temperature 99.1 F Pulse Rate 100 H Respiratory 18 Rate Blood Pressure 130/76 O2 Sat by Pulse 97 Oximetry MSE screening note: Focused history and physical exam performed. ED Disposition for MSE Clinical Impression: Partial small bowel obstruction Abdominal pain Qualifiers: Abdominal location: upper abdomen, unspecified Qualified Code(s): R10.10 - Upper abdominal pain, unspecified Chest pain Qualifiers: Chest pain type: unspecified Qualified Code(s): R07.9 - Chest pain, unspecified Disposition: OP ADMIT IP TO THIS HOSP Is pt being admited?: Yes Does the pt Need Aspirin: No Condition: Fair Instructions: Chest Pain (ED) Time of Disposition: 19:13 Print Language: THAI
[2019-03-01] MEDS ORDERED: ASPIRIN 81 MG TAB CHEW PO ONE (23:52)
[2019-03-01] MEDS ORDERED: CLOPIDOGREL 75 MG TAB PO ONE (23:52)
[2019-03-01] MEDS ORDERED: ALBUTEROL 2.5 MG/3 ML NEBU IH PRN (23:52)
[2019-03-01] MEDS ORDERED: ONDANSETRON 4 MG/2 ML INJ IV PRN (23:52)
[2019-03-01] MEDS ORDERED: ACETAMINOPHEN 325 MG TAB PO PRN (23:52)
[2019-03-02] MEDS ORDERED: DEXTROSE 50% IN WATER (25GM) 50 ML SYRINGE IV PRN
[2019-03-02] MEDS ORDERED: SODIUM CHLORIDE 0.45% 1000 ML 1,000 ML IV ONE (00:15)
[2019-03-02] MEDS ORDERED: traMADol 50 MG TAB ONE (00:15)
[2019-03-02] MEDS ORDERED: KETOROLAC 30 MG/1 ML INJ ONE (00:24)
[2019-03-02] MEDS ORDERED: ONDANSETRON 4 MG/2 ML INJ ONE (00:25)
[2019-03-02] MEDS ORDERED: KETOROLAC 30 MG/1 ML INJ IV ONE (00:34)
[2019-03-02] MEDS: traMADol 50 MG TAB PO SCH ×3 (00:35→22:08)
[2019-03-02] MEDS: METOPROLOL TARTRATE 25 MG TAB PO SCH ×3 (00:59→22:11)
[2019-03-02] MEDS ORDERED: SODIUM CHLORIDE 0.45% 1000 ML IV SOLN IV SCH (01:00)
[2019-03-02] MEDS: INSULIN LISPRO 100 UNIT/ML SUB-Q SCH ×5 (01:32→22:09)
[2019-03-02 05:50] LABS: Basophils % (Auto) 0.3 % (0.0-1.8); Eosinophils # (Auto) 0.1 K/mm3 (0.0-0.4); Eosinophils % (Auto) 1.2 % (0.0-4.3); Hematocrit 42.5 % (35.5-45.6); Hemoglobin 14.1 gm/dl (11.8-15.2); Lymphocytes # (Auto) 1.7 K/mm3 (1.2-5.4); Mean Corpuscular HGB Conc 33 % (32-34); Mean Corpuscular Volume 86 fl (84-94); Platelet Count 309 K/mm3 (140-440); Red Blood Count 4.95 M/mm3 (3.65-5.03); Red Cell Distribution Width 14.4 % (13.2-15.2)
[2019-03-02 06:07] LABS: BUN/Creatinine Ratio 19; Blood Urea Nitrogen 19 mg/dL (9-20); Calcium 9.1 mg/dL (8.4-10.2); Hemolysis Index 8
[2019-03-02] MEDS: SODIUM CHLORIDE 0.45% 1000 ML 1,000 ML IV SCH (06:41)
[2019-03-02] MEDS: METOCLOPRAMIDE 10 MG TAB PO SCH ×3 (07:39→16:35)
[2019-03-02] MEDS: DICYCLOMINE 20 MG TAB PO SCH ×4 (09:47→22:09)
[2019-03-02] MEDS: FERROUS SULFATE 325 MG TAB PO SCH ×2 (09:47→22:08)
--- NOTE | 2019-03-02 10:22 | Consultation ---
History of Present Illness Consult date: 03/02/19 Reason for consult: abdominal pain Requesting physician: SUKHI WARNER Chief complaint: recurrent abdominal pain - History of present illness History of present illness: 73yo m with no past abdominal surgical history presents with recurrent abdominal pain. Pt was initially seen by Dr. Blair in October 2018 when he was admitted with the same problems. At that time, the initial concern was that he had a SBO possibly related to a tumor. However, the CT enterography did not show any obstruction or mass. He never f/u'd with Dr. Blair after discharge. He reports that he was admitted for 1 day after that time and since then has been having recurrent bouts of pain that last for about 12 hours at most. It is relieved if he is able to vomit. During all these episodes, he never stopped passing flatus or having BMs. This time the pain continued beyond 12 hours and he also experienced chest pain. Therefore, he decided to come in for evaluation. No vomiting this time. Current ly, his pain has resolved. The pain is always to the right of midline in the center of the abdomen. Past History Past Medical History: anemia, CAD, diabetes, hypertension, other (renal stones) Past Surgical History: CABG, PTCA (with stents) Social history: denies: smoking, alcohol abuse, prescription drug abuse Family history: diabetes, hypertension Medications and Allergies Allergies Allergy/AdvReac Type Severity Reaction Status Date / Time No Known Allergies Allergy Verified 03/01/19 10:15 Home Medications Medication Instructions Recorded Confirmed Last Taken Type Ferrous Sulfate [Feosol 325 MG tab] 325 mg PO BID #60 tablet 06/05/17 03/01/19 03/01/19 Rx traMADoL [Ultram 50 MG tab] 100 mg PO BID #30 tablet 01/28/18 03/01/19 03/01/19 Rx AtorvaSTATin [Lipitor] 40 mg PO QHS #30 tablet 04/06/18 03/01/19 03/01/19 Rx Clopidogrel [Plavix] 75 mg PO QDAY #30 tablet 04/06/18 03/01/19 03/01/19 Rx Metoprolol [Lopressor TAB] 25 mg PO BID #60 tablet 04/06/18 03/01/19 03/01/19 Rx glipiZIDE [Glucotrol] 5 mg PO BID 10/24/18 03/01/19 03/01/19 History metFORMIN [Glucophage] 500 mg PO BID 10/24/18 03/01/19 03/01/19 History Active Meds: Active Medications Acetaminophen (Tylenol) 650 mg PO Q4H PRN PRN Reason: Pain, Mild (1-3)/Fever >100.5 Albuterol (Proventil) 2.5 mg IH Q4H PRN PRN Reason: Shortness Of Breath Atorvastatin Calcium (Lipitor) 40 mg PO QHS [facility] Dextrose (D50w (25gm) Syringe) 50 ml IV Q30MIN PRN; Protocol PRN Reason: Hypoglycemia Dicyclomine HCl (Bentyl) 20 mg PO QID [facility] Last Admin: 03/02/19 09:47 Dose: 20 mg Documented by: Ferrous Sulfate (Feosol) 325 mg PO BID [facility] Last Admin: 03/02/19 09:47 Dose: 325 mg Documented by: Sodium Chloride (Nacl 0.45% 1000 Ml) 1,000 mls @ 42 mls/hr IV DIRECT [facility] Last Admin: 03/02/19 06:41 Dose: 42 mls/hr Documented by: Insulin Human Lispro (Humalog) 0 unit SUB-Q Q6HR [facility]; Protocol Last Admin: 03/02/19 06:13 Dose: 2 unit Documented by: Metoclopramide HCl (Reglan) 5 mg PO TIDAC [facility] Last Admin: 03/02/19 07:39 Dose: Not Given Documented by: Metoprolol Tartrate (Metoprolol) 25 mg PO BID [facility] Last Admin: 03/02/19 09:49 Dose: 25 mg Documented by: Ondansetron HCl (Zofran) 4 mg IV Q8H PRN PRN Reason: Nausea Tramadol HCl (Ultram) 100 mg PO BID [facility] Last Admin: 03/02/19 09:48 Dose: 100 mg Documented by: Review of Systems - Constitutional other (recurrent abdominal pain), no fever, no chills - Cardiovascular chest pain, no shortness of breath - Gastrointestinal abdominal pain, dyspepsia/bloating, no nausea, no vomiting, no change in bowel habits - Genitourinary no dysuria - Muskuloskeletal no low back pain - Integumentary no rash, no wounds Exam Vital Signs Temp Pulse Resp BP Pulse Ox 99.1 F 100 H 18 130/76 97 03/01/19 17:46 03/01/19 17:46 03/01/19 17:46 03/01/19 17:46 03/01/19 17:46 - General physical appearance Positive: well developed, well nourished, no distress, no pain, other (pleasant) - Eyes Positive: normal occular movement - ENT Positive: normal mucosa, poor chcf - Respiratory Positive: normal expansion, normal respiratory effort - Cardiovascular Rhythm: regular - Abdomen Abdomen: Present: soft. Absent: tender, distended, masses, surgical scars - Integumentary no rash, no growths, no abnormal pigmentation - Neurologic Neurologic: alert and oriented to time, place and person, motor strength and sensation are grossly intact - Psychiatric Psychiatric: appropriate mood/affect, intact judgment & insight, cooperative Results - Labs 03/02/19 04:50 03/02/19 04:50 Abnormal lab results 03/02/19 03/02/19 03/02/19 Range/Units 01:19 04:50 04:50 [place] % (Auto) 10.0 H (0.0-7.3) % [place] # 1.0 H (0.0-0.8) K/mm3 Seg Neutrophils % 71.5 H (40.0-70.0) % Glucose 186 H (75-100) mg/dL POC Glucose 189 H (70-105) 03/02/19 Range/Units 06:08 [place] % (Auto) (0.0-7.3) % [place] # (0.0-0.8) K/mm3 Seg Neutrophils % (40.0-70.0) % Glucose (75-100) mg/dL POC Glucose 165 H (70-105) Diabetes panel 03/02/19 Range/Units 04:50 Sodium 138 (137-145) mmol/L Potassium 4.0 (3.6-5.0) mmol/L Chloride 100.3 (98-107) mmol/L Carbon Dioxide 23 (22-30) mmol/L BUN 19 (9-20) mg/dL Creatinine 1.0 (0.8-1.5) mg/dL Glucose 186 H (75-100) mg/dL Calcium 9.1 (8.4-10.2) mg/dL Calcium panel 03/02/19 Range/Units 04:50 Calcium 9.1 (8.4-10.2) mg/dL Pituitary panel 03/02/19 Range/Units 04:50 Sodium 138 (137-145) mmol/L Potassium 4.0 (3.6-5.0) mmol/L Chloride 100.3 (98-107) mmol/L Carbon Dioxide 23 (22-30) mmol/L BUN 19 (9-20) mg/dL Creatinine 1.0 (0.8-1.5) mg/dL Glucose 186 H (75-100) mg/dL Calcium 9.1 (8.4-10.2) mg/dL Adrenal panel 03/02/19 Range/Units 04:50 Sodium 138 (137-145) mmol/L Potassium 4.0 (3.6-5.0) mmol/L Chloride 100.3 (98-107) mmol/L Carbon Dioxide 23 (22-30) mmol/L BUN 19 (9-20) mg/dL Creatinine 1.0 (0.8-1.5) mg/dL Glucose 186 H (75-100) mg/dL Calcium 9.1 (8.4-10.2) mg/dL - Imaging CT scan - abdomen: report reviewed, image reviewed CT scan - pelvis: report reviewed, image reviewed Assessment and Plan - Patient Problems (1) Abdominal pain Current Visit: Yes Status: Acute Qualifiers: Abdominal location: unspecified location Qualified Code(s): R10.9 - Unspecified abdominal pain Plan to address problem: Pt stable. Pain has resolved. The history is suspicious for intermittent intussusception. Recent upper and lower scopes were negative for masses. I think there may be a thickening in the mid-small bowel suggestive of possible intussusception on the most recent CT. As his symptoms have completely resolved, there is nothing that needs to be done right now. Rec: 1) Start diet. May d/c home when diet tolerated 2) See PCP to make arrangements for capsule endoscopy. a) If positive, will plan surgery b) if negative, will offer diagnostic laparoscopy. 3) F/U with Dr. Blair or myself after capsule endoscopy completed Please call with questions. time=45min
--- NOTE | 2019-03-02 10:55 | Progress Note ---
Assessment and Plan / Partial bowel obstruction surgery team consulted in ED, serial abdominal exam, pain control, supportive care, CT enterography did not show any obstruction or mass resume diet today - follow response May need capsule endoscopy as outpt / HTN (hypertension) Monitor blood pressure every shift, continue medical management. / Diabetes type 2 Consistent carbohydrate diet, sliding scale insulin therapy, hypoglycemia protocol, Accu-Cheks. / CAD (coronary artery disease) Risk factor reduction, low-fat low-cholesterol diet. / Anemia Currently stable. no active bleeding / DVT prophylaxis SCD to bilateral lower extremities while in bed, patient is ambulatory. Subjective Date of service: 03/02/19 Interval history: Patient seen and examined. Medical records and medication list reviewed. No acute event overnight noted by the RN. Patient denies any chest pain or difficulty breathing. Patient is started on regular diet. Discussed plan of care at bedside with patient. Objective - Constitutional Vitals: Vital Signs - 12hr 03/01/19 03/01/19 03/01/19 23:00 23:15 23:30 Temperature Pulse Rate 82 79 75 Respiratory 16 16 22 Rate Blood Pressure 133/69 151/78 127/70 O2 Sat by Pulse 97 95 94 Oximetry 03/02/19 03/02/19 03/02/19 00:00 00:06 00:16 Temperature Pulse Rate 86 103 H 104 H Respiratory 21 16 16 Rate Blood Pressure 118/54 118/54 O2 Sat by Pulse 97 97 98 Oximetry 03/02/19 03/02/19 03/02/19 00:30 00:45 00:50 Temperature Pulse Rate 82 78 87 Respiratory 15 16 11 L Rate Blood Pressure 148/82 139/75 139/75 O2 Sat by Pulse 96 94 97 Oximetry 03/02/19 03/02/19 03/02/19 01:00 01:10 01:39 Temperature 97.7 F Pulse Rate 80 86 Respiratory 16 18 Rate Blood Pressure 131/70 131/70 142/77 O2 Sat by Pulse 95 96 95 Oximetry 03/02/19 03/02/19 03/02/19 07:39 09:49 09:57 Temperature 97.5 F L Pulse Rate 70 74 65 Respiratory 18 Rate Blood Pressure 119/66 117/68 O2 Sat by Pulse 96 Oximetry General appearance: Present: no acute distress, obese - EENT Eyes: PERRL, EOM intact ENT: hearing intact, clear oral mucosa Ears: bilateral: normal - Neck Neck: supple, normal ROM - Respiratory Respiratory effort: normal Respiratory: bilateral: CTA - Cardiovascular Rhythm: regular Heart Sounds: Present: S1 & S2. Absent: gallop, rub Extremities: pulses intact, No edema, normal color, Full ROM - Gastrointestinal General gastrointestinal: Present: soft, non-tender, non-distended, normal bowel sounds - Integumentary Integumentary: clear, warm, dry - Musculoskeletal Musculoskeletal: 1, strength equal bilaterally - Neurologic Neurologic: moves all extremities - Psychiatric Psychiatric: memory intact, appropriate mood/affect, intact judgment & insight - Labs CBC & Chem 7: 03/02/19 04:50 03/02/19 04:50 Labs: Abnormal lab results 03/02/19 03/02/19 03/02/19 Range/Units 01:19 04:50 04:50 [place] % (Auto) 10.0 H (0.0-7.3) % [place] # 1.0 H (0.0-0.8) K/mm3 Seg Neutrophils % 71.5 H (40.0-70.0) % Glucose 186 H (75-100) mg/dL POC Glucose 189 H (70-105) 03/02/19 Range/Units 06:08 [place] % (Auto) (0.0-7.3) % [place] # (0.0-0.8) K/mm3 Seg Neutrophils % (40.0-70.0) % Glucose (75-100) mg/dL POC Glucose 165 H (70-105)
[2019-03-03] MEDS: SODIUM CHLORIDE 0.45% 1000 ML 1,000 ML IV SCH (06:10)
[2019-03-03] MEDS: METOCLOPRAMIDE 10 MG TAB PO SCH ×2 (07:22→11:40)
[2019-03-03] MEDS: INSULIN LISPRO 100 UNIT/ML SUB-Q SCH ×2 (07:22→11:39)
[2019-03-03] MEDS: traMADol 50 MG TAB PO SCH (09:23)
[2019-03-03] MEDS: DICYCLOMINE 20 MG TAB PO SCH ×2 (09:25→13:22)
[2019-03-03] MEDS: METOPROLOL TARTRATE 25 MG TAB PO SCH (09:25)
[2019-03-03] MEDS: FERROUS SULFATE 325 MG TAB PO SCH (09:25)
[2019-03-03 09:26] VITALS: BP 117/59
--- NOTE | 2019-03-03 11:49 | Progress Note ---
Assessment and Plan - Patient Problems (1) Abdominal pain Current Visit: Yes Status: Acute Qualifiers: Abdominal location: unspecified location Qualified Code(s): R10.9 - Unspecified abdominal pain Plan to address problem: Pt stable. Pain has resolved. The history is suspicious for intermittent intussusception. Recent upper and lower scopes were negative for masses. I think there may be a thickening in the mid-small bowel suggestive of possible intussusception on the most recent CT. As his symptoms have completely resolved, there is nothing that needs to be done right now. Rec: 1) May d/c home. Diet as tolerated 2) See PCP to make arrangements for capsule endoscopy. a) If positive, will plan surgery b) if negative, will offer diagnostic laparoscopy. 3) F/U with Dr. Blair or myself after capsule endoscopy completed Please call with questions. time=10min Subjective Date of service: 03/03/19 Patient Reports: Positive: no new complaints, feels better, tolerating a regular diet. Negative: still having pain, nausea, vomiting Objective Vital Signs - 12hr 03/03/19 03/03/19 03/03/19 01:00 02:13 07:27 Temperature 98.0 F 98.5 F Pulse Rate 63 61 Pulse Rate [ 67 From Monitor] Respiratory 18 18 20 Rate Blood Pressure 123/67 155/76 O2 Sat by Pulse 95 94 96 Oximetry 03/03/19 03/03/19 03/03/19 09:25 09:39 09:49 Temperature Pulse Rate 65 65 Pulse Rate [ 65 From Monitor] Respiratory 18 Rate Blood Pressure 117/59 O2 Sat by Pulse 96 Oximetry - General physical appearance no distress, no pain - Respiratory normal expansion, normal respiratory effort - Abdomen soft, not tender, not distended - Psychiatric oriented to time, oriented to person, oriented to place, speech is normal, memory intact - Labs 03/02/19 04:50 03/02/19 04:50
--- NOTE | 2019-03-03 12:31 | Discharge Summary ---
Providers - Providers Date of Admission: 03/03/19 10:14 Date of discharge: 03/03/19 Attending physician: JAHAIRA DOLL 03/01/19 19:05 Consult to Physician [CONS] Stat Comment: Consulting Provider: YUDITH PERLA Physician Instructions: Reason For Exam: partial SBO 03/01/19 23:21 Consult to Physician [CONS] Routine Comment: Consulting Provider: YUDITH PERLA Physician Instructions: Reason For Exam: Bowel Obstruction Primary care physician: [employer] Hospitalization Condition: Fair Pertinent studies: CT abdomen/pelvis: 1. Nonspecific fluid distention of small bowel without definite evidence of mechanical obstruction. 2. Right and left-sided colonic diverticulosis. 3. Right nephrolithiasis without hydronephrosis. Hospital course: 73-year-old male with CAD status post CABG,status post cardiac cath, status post stent placement currently on an anticoagulation, HTN, DM,Nephrolithiasis, Diverticulitis, Anemia presents to [facility] for evaluation. Patient states that he has experienced nausea with multiple episodes of vomiting and abdominal pain over the past 1 day with progressively worsening symptoms over the past 12 hours. Patient states that his abdominal pain is rated at 10 out of 10. Pain is constant and worsened with movement and relieved with rest. Pain is diffuse and is worsened with diet. Patient is transported to [facility] via private vehicle. Patient is seen and evaluated in the emergency department. Patient found to have evidence of a partial bowel obstruction. Patient is placed in observation status and admitted to the [facility] unit. Surgery team consulted in the emergency department. Patient denies fever chills chest pains palpitations syncope, productive cough, skin rash, or recent ill contacts. Prior admission on 10/24/2018 reviewed. All listed medication is reconciled at time of admission. Discharge Diagnosis and Mx: / Partial bowel obstruction surgery team consulted in ED, serial abdominal exam, pain control, supportive care, CT abdomen/pelvis did not show any obstruction or mass Resumed diet, tolerated well The history is suspicious for intermittent intussusception. Recent upper and lower scopes were negative for masses. There may be a thickening in the mid- small bowel suggestive of possible intussusception on the most recent CT. Recommendation per Surgery: 1) Resume diet 2) See PCP to make arrangements for capsule endoscopy. a) If positive, will need surgery b) if negative, will be offered diagnostic laparoscopy. 3) F/U with Dr. Perla or Dr Pimentel after capsule endoscopy completed / HTN (hypertension) Monitor blood pressure every shift, continue medical management. / Diabetes type 2 Consistent carbohydrate diet, sliding scale insulin therapy, hypoglycemia protocol, Accu-Cheks. / CAD (coronary artery disease) Risk factor reduction, low-fat low-cholesterol diet. / Anemia Currently stable. no active bleeding / DVT prophylaxis SCD to bilateral lower extremities while in bed, patient is ambulatory. Disposition: TO HOME OR SELFCARE Time spent for discharge: 34 minutes Core Measure Documentation - Palliative Care Palliative Care/ Comfort Measures: Not Applicable - Core Measures Any of the following diagnoses?: none Exam - Physical Exam Narrative exam: General appearance: Present: no acute distress, obese - EENT Eyes: PERRL, EOM intact ENT: hearing intact, clear oral mucosa Ears: bilateral: normal - Neck Neck: supple, normal ROM - Respiratory Respiratory effort: normal Respiratory: bilateral: CTA - Cardiovascular Rhythm: regular Heart Sounds: Present: S1 & S2. Absent: gallop, rub Extremities: pulses intact, No edema, normal color, Full ROM - Gastrointestinal General gastrointestinal: Present: soft, non-tender, non-distended, normal bowel sounds - Integumentary Integumentary: clear, warm, dry - Musculoskeletal Musculoskeletal: 1, strength equal bilaterally - Neurologic Neurologic: moves all extremities - Psychiatric Psychiatric: memory intact, appropriate mood/affect, intact judgment & insight - Constitutional Vitals: Temp Pulse Resp BP Pulse Ox 98.5 F 65 18 117/59 96 03/03/19 07:27 03/03/19 09:49 03/03/19 09:49 03/03/19 09:25 03/03/19 09:49 Plan Activity: advance as tolerated Weight Bearing Status: Weight Bear as Tolerated Diet: low fat, low salt Additional Instructions: capsule endoscopy as outpt. f/u with Dr Perla Follow up with: PRIMARY CARE, [Primary Care Provider] - 7 Days
== END 2019-03-03 14:00 | disposition home or self-care (01) | DRG 389 ==
LOC: ED 16:49 → 2B-ACE 19:30 → OBSVTOIN 03-03 10:14
PROVIDERS: ADMIT Internal Medicine; ATTEND Internal Medicine
DX: K56.600 Partial intestinal obstruction, unspecified as to cause (principal); I25.810 Atherosclerosis of coronary artery bypass graft(s) without angina pectoris; Z95.1 Presence of aortocoronary bypass graft; I10 Essential (primary) hypertension; E11.9 Type 2 diabetes mellitus without complications; D64.9 Anemia, unspecified; R07.9 Chest pain, unspecified; Z79.01 Long term (current) use of anticoagulants; Z87.442 Personal history of urinary calculi; Z83.3 Family history of diabetes mellitus; Z82.49 Family history of ischemic heart disease and other diseases of the circulatory system; Z79.899 Other long term (current) drug therapy; Z95.5 Presence of coronary angioplasty implant and graft
CPT/HCPCS: 36415; 71046; 74177; 80048; 80076; 82140; 82962; 83690; 84484; 85025; 87116; 93005; 93010; 96374; 96375; G0378; A9270-GY; J1815; J1885; J2270; J2405; J7030

== ENCOUNTER 2019-08-05 21:01 | Emergency (ER) | payer MEDICARE ==
[2019-08-05 21:43] LABS: Basophils # (Auto) 0.1 K/mm3 (0.0-0.1); Basophils % (Auto) 0.7 % (0.0-1.8); Eosinophils # (Auto) 0.2 K/mm3 (0.0-0.4); Eosinophils % (Auto) 2.1 % (0.0-4.3); Hematocrit 45.5 % (35.5-45.6); Lymphocytes # (Auto) 2.5 K/mm3 (1.2-5.4); Lymphocytes % (Auto) 27.3 % (13.4-35.0); Mean Corpuscular HGB Conc 33 % (32-34); Mean Corpuscular Volume 85 fl (84-94); Monocytes # (Auto) 0.8 K/mm3 (0.0-0.8); Monocytes % (Auto) 8.3 % (0.0-7.3); Platelet Count 291 K/mm3 (140-440); Red Blood Count 5.34 M/mm3 (3.65-5.03); Red Cell Distribution Width 13.9 % (13.2-15.2)
[2019-08-05 22:02] LABS: Alanine Aminotransferase 20 units/L (7-56); Albumin 4.8 g/dL (3.9-5); BUN/Creatinine Ratio 23; Blood Urea Nitrogen 18 mg/dL (9-20); Calcium 9.7 mg/dL (8.4-10.2); Hemolysis Index 14
--- NOTE | 2019-08-05 23:45 | Emergency Department Report ---
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 and reports development of pain to the left lower quadrant this past Thursday after ta abraham laxatives to reduce to probability of constipation), other (Patient also states he was straining and worried that he may have caused a hernia) Associated Symptoms: denies: nausea, vomiting, constipation, dysuria, hematemesis, hematuria, anorexia, syncope - Related Data Home Medications Medication Instructions Recorded Confirmed Last Taken glipiZIDE [Glucotrol] 5 mg PO BID 10/24/18 06/12/19 06/11/19 metFORMIN [Glucophage] 500 mg PO BID 10/24/18 06/12/19 06/11/19 Previous Rx's Medication Instructions Recorded Last Taken Type Ferrous Sulfate [Feosol 325 MG tab] 325 mg PO BID #60 tablet 06/05/17 06/11/19 Rx traMADoL [Ultram 50 MG tab] 100 mg PO BID #30 tablet 01/28/18 06/11/19 Rx AtorvaSTATin [Lipitor] 40 mg PO QHS #30 tablet 04/06/18 06/11/19 Rx Clopidogrel [Plavix] 75 mg PO QDAY #30 tablet 04/06/18 06/11/19 Rx Metoprolol [Lopressor TAB] 25 mg PO BID #60 tablet 04/06/18 06/11/19 Rx Docusate Sodium [Colace] 100 mg PO BID PRN #30 capsule 06/19/19 Unknown Rx Phenol 1.4% [Chloraseptic] 1 spray MM PRN PRN 10 Days #1 06/19/19 Unknown Rx bottle bisacodyL [Dulcolax suppos] 10 mg [place] QDAY PRN #14 supp.rect 06/19/19 Unknown Rx oxyCODONE /ACETAMINOPHEN [Percocet 1 tab PO Q8H PRN #15 tablet 06/19/19 Unknown Rx 5/325 mg] Allergies Allergy/AdvReac Type Severity Reaction Status Date / Time No Known Allergies Allergy Verified 03/01/19 10:15 ED Review of Systems ROS: Stated complaint: LOWER ABDOMINAL PAIN Other details as noted in HPI Comment: All other systems reviewed and negative ED Past Medical Hx - Past Medical History Previous Medical History?: Yes Hx Hypertension: Yes Hx Heart Attack/AMI: No Hx Diabetes: Yes Hx Deep Vein Thrombosis: No Hx Liver Disease: No Hx Renal Disease: No Hx Sickle Cell Disease: No Hx Seizures: No Hx Kidney Stones: Yes (LEFT) Hx Asthma: No Hx COPD: No Hx HIV: No Additional medical history: DIVERTICULITIS, ANEMIA AND BLOOD TRANSFUSION, Bypass, stent - Surgical History Past Surgical History?: Yes Hx Open Heart Surgery: Yes (X2 PROCEDURES) Hx Pacemaker: No Hx Internal Defibrillator: No Additional Surgical History: LEFT EAR SURGERY. CABG X2. 02/26/2015. [facility]. Cardiac Cath 02/21/2015 here - Social History Smoking Status: Current Every Day Smoker Substance Use Type: None - Medications Home Medications: Home Medications Medication Instructions Recorded Confirmed Last Taken Type Ferrous Sulfate [Feosol 325 MG tab] 325 mg PO BID #60 tablet 06/05/17 06/12/19 06/11/19 Rx traMADoL [Ultram 50 MG tab] 100 mg PO BID #30 tablet 01/28/18 06/12/19 06/11/19 Rx AtorvaSTATin [Lipitor] 40 mg PO QHS #30 tablet 04/06/18 06/12/19 06/11/19 Rx Clopidogrel [Plavix] 75 mg PO QDAY #30 tablet 04/06/18 06/12/19 06/11/19 Rx Metoprolol [Lopressor TAB] 25 mg PO BID #60 tablet 04/06/18 06/12/19 06/11/19 Rx glipiZIDE [Glucotrol] 5 mg PO BID 10/24/18 06/12/19 06/11/19 History metFORMIN [Glucophage] 500 mg PO BID 10/24/18 06/12/19 06/11/19 History Docusate Sodium [Colace] 100 mg PO BID PRN #30 capsule 06/19/19 Unknown Rx Phenol 1.4% [Chloraseptic] 1 spray MM PRN PRN 10 Days #1 06/19/19 Unknown Rx bottle bisacodyL [Dulcolax suppos] 10 mg MS QDAY PRN #14 supp.rect 06/19/19 Unknown Rx oxyCODONE /ACETAMINOPHEN [Percocet 1 tab PO Q8H PRN #15 tablet 06/19/19 Unknown Rx 5/325 mg] ED Physical Exam - General Limitations: No Limitations General appearance: alert, in no apparent distress - Head Head exam: Present: atraumatic, normocephalic - Eye Eye exam: Present: normal appearance, PERRL, EOMI Pupils: Present: normal accommodation - ENT ENT exam: Present: normal exam, mucous membranes moist, TM's normal bilaterally - Neck Neck exam: Present: normal inspection, full ROM - Respiratory Respiratory exam: Present: normal lung sounds bilaterally. Absent: respiratory distress - Cardiovascular Cardiovascular Exam: Present: regular rate, normal rhythm. Absent: systolic murmur, diastolic murmur, rubs, gallop - GI/Abdominal GI/Abdominal exam: Present: soft, tenderness, normal bowel sounds, other (Tenderness to the left lower quadrant region). Absent: organomegaly, mass, bruit - Rectal Rectal exam: Present: deferred - Extremities Exam Extremities exam: Present: normal inspection - Back Exam Back exam: Present: normal inspection - Neurological Exam Neurological exam: Present: alert, oriented X3 - Psychiatric Psychiatric exam: Present: normal affect, normal mood - Skin Skin exam: Present: warm, dry, intact, normal color. Absent: rash ED Course Vital Signs 08/05/19 21:19 Temperature 98.8 F Pulse Rate 85 Respiratory 18 Rate Blood Pressure 140/85 O2 Sat by Pulse 97 Oximetry ED Medical Decision Making - Lab Data Result diagrams: 08/05/19 21:30 08/05/19 21:30 - Radiology Data Radiology results: report reviewed Print Report Referring Physician:ANDREW DIAZPatient Name:JASON MONROYPatient ID:[id number] of :[id number]:MaleAccession:[id number] Date:[id number] Status:Finalized Findings [facility] [address] [place] [address] Cat Scan Report Signed Patient: JASON MONROY MR#: [id number] : 1945 Acct:[id number] Age/Sex: 73 / M ADM Date: 08/05/19 Loc: ED Attending Dr: Ordering Physician: TYE AMAYA Date of Service: 08/05/19 Procedure(s): CT abdomen pelvis w con Accession Number(s): [id number] cc: TYE AMAYA CT ABDOMEN AND PELVIS WITH IV CONTRAST INDICATION: MAIN: Lower ABD Pain, 100cc [id number]. COMPARISON: TECHNIQUE: Axial CT images were obtained through the abdomen and pelvis after 100 mL IV contrast. All CT scans at this location are performed using CT dose reduction for ALARA by means of automated exposure control. FINDINGS -- ABDOMEN: Lung Bases: No acute abnormality. Liver: Normal. Gallbladder: Normal. Bile Ducts: Normal. Pancreas: Normal. Spleen: Normal. Adrenals: Normal. Right Kidney and Proximal Ureter: 9 obstructive right-sided nephrolithiasis.. Left Kidney and Proximal Ureter: Normal. Stomach and Bowel: Prior studies partial small bowel resection.. Lymph Nodes: No significant adenopathy. Aorta: Severe atherosclerotic calcification of the abdominal aorta.. IVC: Normal. Additional Findings: None. FINDINGS -- PELVIS: Urinary Bladder and Distal Ureters: Normal. Reproductive Organs: No acute abnormality. Appendix: Normal. Bowel: Sigmoid diverticulosis without diverticulitis.. Free Fluid: None. Lymph Nodes: No significant adenopathy. Additional Findings: None. Skeletal System: No acute abnormality. IMPRESSION: 1. No acute process in the abdomen or pelvis. Signer Name: Reece Yu MD Signed: 08/06/2019 12:51 AM Workstation Name: [id number] Transcribed By: Dictated By: Reece Yu MD Electronically Authenticated By: Reece Yu MD Signed Date/Time: 08/06/19 0051 DD/ 0048 TD/TT: - Medical Decision Making This patient presents with abdominal pain of unclear etiology. A CT scan was performed to evaluate for potential causes of the abdominal pain, however, neither the clinical exam nor the CT has identified an emergent etiology for the abdominal pain. Specifically, given the benign exam, the laboratory studies, and unremarkable CT, I have a very low suspicion for appendicitis, ischemic bowel, bowel perforation, or any other life threatening disease. I have discussed with the patient the level of uncertainty with undifferentiated abdominal pain and clearly explained the need to follow-up as noted on the discharge instructions, or return to the Emergency Department immediately if the pain worsens, develops fever, persistent and uncontrollable vomiting, or for any new symptoms or concerns. Critical care attestation.: If time is entered above; I have spent that time in minutes in the direct care of this critically ill patient, excluding procedure time. ED Disposition Clinical Impression: Abdominal pain Disposition: DC-01 TO HOME OR SELFCARE Is pt being admited?: No Does the pt Need Aspirin: No Condition: Stable Instructions: Acute Abdominal Pain (ED), Abdominal Pain (ED) Referrals: PRIMARY CARE, [Primary Care Provider] - 3-5 Days
--- NOTE | 2019-08-06 00:55 | Cat Scan Report ---
CT ABDOMEN AND PELVIS WITH IV CONTRAST INDICATION: MAIN: Lower ABD Pain, 100cc [id number]. COMPARISON: TECHNIQUE: Axial CT images were obtained through the abdomen and pelvis after 100 mL IV contrast. All CT scans a t this location are performed using CT dose reduction for ALARA by means of automated exposure contro l. FINDINGS -- ABDOMEN: Lung Bases: No acute abnormality. Liver: Normal. Gallbladder: Normal. Bile Ducts: Normal. Pancreas: Normal. Spleen: Normal. Adrenals: Normal. Right Kidney and Proximal Ureter: 9 obstructive right-sided nephrolithiasis.. Left Kidney and Proximal Ureter: Normal. Stomach and Bowel: Prior studies partial small bowel resection.. Lymph Nodes: No significant adenopathy. Aorta: Severe atherosclerotic calcification of the abdominal aorta.. IVC: Normal. Additional Findings: None. FINDINGS -- PELVIS: Urinary Bladder and Distal Ureters: Normal. Reproductive Organs: No acute abnormality. Appendix: Normal. Bowel: Sigmoid diverticulosis without diverticulitis.. Free Fluid: None. Lymph Nodes: No significant adenopathy. Additional Findings: None. Skeletal System: No acute abnormality. IMPRESSION: 1. No acute process in the abdomen or pelvis. Signer Name: Reece Yu MD Signed: 08/06/2019 12:51 AM Workstation Name: [email or web address]
[2019-08-06 00:57] LABS: Bilirubin,Urine NEG (Negative); Blood,Urine NEG (Negative); Color,Urine Yellow (Yellow); Mucus,Urine 2+ /HPF; Urobilinogen,Urine < 2.0 mg/dL (<2.0); WBC,Urine < 1.0 /HPF (0.0-6.0)
[2019-08-06 02:37] VITALS: BP 160/93
== END 2019-08-06 03:08 | disposition home or self-care (01) ==
LOC: ED 21:01
DX: R10.32 Left lower quadrant pain (principal); F17.200 Nicotine dependence, unspecified, uncomplicated; I10 Essential (primary) hypertension; E11.9 Type 2 diabetes mellitus without complications; Z87.442 Personal history of urinary calculi; Z98.890 Other specified postprocedural states; Z79.899 Other long term (current) drug therapy
CPT/HCPCS: 36415; 74177; 80053; 81001; 83690; 85025; 99284; Q9967

== ENCOUNTER 2020-02-01 02:28 | Emergency (ER) | payer MEDICARE ==
[2020-02-01] MEDS ORDERED: ASPIRIN 325 MG TAB PO ONE (03:50)
--- NOTE | 2020-02-01 04:38 | XRay Report ---
CHEST 1 VIEW INDICATION: Chest Pain. COMPARISON: 06/14/2019 FINDINGS: Support devices: None. Heart: Normal. Lungs/Pleura: There is mild scarring versus atelectasis in the right lung base. There is also mild li near scarring in the lateral left midlung. No consolidation, effusion, or pneumothorax. IMPRESSION: 1. No acute findings. Signer Name: Ata Carrillo MD Signed: 02/01/2020 4:34 AM Workstation Name: [id number]
[2020-02-01 04:58] LABS: Basophils # (Auto) 0.1 K/mm3 (0.0-0.1); Basophils % (Auto) 0.8 % (0.0-1.8); Eosinophils # (Auto) 0.2 K/mm3 (0.0-0.4); Eosinophils % (Auto) 1.7 % (0.0-4.3); Hematocrit 47.7 % (35.5-45.6); Hemoglobin 16.7 gm/dl (11.8-15.2); Lymphocytes # (Auto) 2.9 K/mm3 (1.2-5.4); Lymphocytes % (Auto) 27.5 % (13.4-35.0); Mean Corpuscular HGB Conc 35 % (32-34); Mean Corpuscular Volume 89 fl (84-94); Monocytes # (Auto) 0.8 K/mm3 (0.0-0.8); Monocytes % (Auto) 7.9 % (0.0-7.3); Platelet Count 255 K/mm3 (140-440); Red Blood Count 5.39 M/mm3 (3.65-5.03); Red Cell Distribution Width 13.2 % (13.2-15.2)
[2020-02-01 05:15] LABS: BUN/Creatinine Ratio 21; Blood Urea Nitrogen 17 mg/dL (9-20); Calcium 10.1 mg/dL (8.4-10.2); Hemolysis Index 6
--- NOTE | 2020-02-01 08:03 | Emergency Department Report ---
ED Chest Pain HPI - General Chief Complaint: Chest Pain Stated Complaint: CHEST PAIN Time Seen by Provider: 02/01/20 07:59 Source: patient Mode of arrival: Ambulatory Limitations: No Limitations - History of Present Illness Initial Comments: This is a 74-year-old man presenting for evaluation of right-sided chest pain of 1 weeks duration. He refers pain that is nonpleuritic not associated with cough fever or chills. It does not radiate. It involves his right pectoral area. He states it was somewhat worse last night so he thought he check it out today. The pain is intermittent and not related to movement. He has not reached out to any of his primary care or specialty physicians. He has a history of hypertension and cardiac history as below described. He states he has never had right-sided chest pain related to any cardiac event. Assessment and Plan S/p small bowel resection yesterday. Currently stable cardiac status. Pt is s/p CABG 2 in 2014, PCI of circ with [facility] in 03/2018. Recommend d/c Plavix and resumption of ASA 81 if/when okay per general surgery. Nothing further to add from cardiac perspective at this time. Will sign off. Recommend pt follow up in our office with Dr. Evelyn Bolden within 1 month of discha rge ([phone]). The patient has been seen in conjunction with Dr. Evelyn Bolden who agrees with the assessment and plan of care. - Patient Problems (1) SBO (small bowel obstruction) Current Visit: Yes Status: Acute (2) CAD (coronary artery disease) Current Visit: Yes Status: Chronic Qualifiers: Associated angina: without angina (3) Stented coronary artery Current Visit: Yes Status: Chronic (4) Hx of CABG Current Visit: Yes Status: Chronic (5) HTN (hypertension) Current Visit: Yes Status: Chronic Qualifiers: Hypertension type: essential hypertension Qualified Code(s): I10 - Essential (primary) hypertension (6) Diabetes Current Visit: Yes Status: Chronic (7) Hyperlipidemia Current Visit: Yes Status: Chronic Qualifiers: Hyperlipidemia type: mixed hyperlipidemia Qualified Code(s): E78.2 - Mixed hyperlipidemia Subjective Date of service: 06/17/19 Principal diagnosis: SBO Interval history: pt resting in bed, no current cardiac complaints. s/p surgery yesterday. in SR on tele. MD Complaint: chest pain -: Gradual, week(s) Onset: during rest Pain Location: right chest Pain Radiation: none Severity: mild, moderate Quality: aching Consistency: intermittent Improves With: nothing Worsens With: nothing re: denies: nausea, vomting, diaphoresis, dyspnea, sense of impending doom Other Symptoms: denies: cough, fever, syncope Treatments Prior to Arrival: none Aspirin use within the Past 7 Days: (0) No - Related Data Home Medications Medication Instructions Recorded Confirmed Last Taken glipiZIDE [Glucotrol] 5 mg PO BID 10/24/18 06/12/19 06/11/19 metFORMIN [Glucophage] 500 mg PO BID 10/24/18 06/12/19 06/11/19 Previous Rx's Medication Instructions Recorded Last Taken Type Ferrous Sulfate [Feosol 325 MG tab] 325 mg PO BID #60 tablet 06/05/17 06/11/19 Rx traMADoL [Ultram 50 MG tab] 100 mg PO BID #30 tablet 01/28/18 06/11/19 Rx AtorvaSTATin [Lipitor] 40 mg PO QHS #30 tablet 04/06/18 06/11/19 Rx Clopidogrel [Plavix] 75 mg PO QDAY #30 tablet 04/06/18 06/11/19 Rx Metoprolol [Lopressor TAB] 25 mg PO BID #60 tablet 04/06/18 06/11/19 Rx Docusate Sodium [Colace] 100 mg PO BID PRN #30 capsule 06/19/19 Unknown Rx Phenol 1.4% [Chloraseptic] 1 spray MM PRN PRN 10 Days #1 06/19/19 Unknown Rx bottle bisacodyL [Dulcolax suppos] 10 mg [place] QDAY PRN #14 supp.rect 06/19/19 Unknown Rx oxyCODONE /ACETAMINOPHEN [Percocet 1 tab PO Q8H PRN #15 tablet 06/19/19 Unknown Rx 5/325 mg] Acetaminophen/Codeine [Tylenol 1 tab PO Q8HR PRN #14 tab 08/06/19 Unknown Rx /Codeine # 3 tab] traMADoL [Ultram] 50 mg PO Q6HR PRN #10 tablet 02/01/20 Unknown Rx Allergies Allergy/AdvReac Type Severity Reaction Status Date / Time No Known Allergies Allergy Verified 03/01/19 10:15 Heart Score - HEART Score History: Slightly suspicious EKG: Normal Age: > 65 Risk factors: > 3 risk factors or hx of atherosclerotic disease Troponin: < normal limit HEART Score: 4 - Critical Actions Critical Actions: 4-6 pts:12-16.6% risk of adverse cardiac event. Should be admitted ED Review of Systems ROS: Stated complaint: CHEST PAIN Other details as noted in HPI Constitutional: denies: chills, fever Eyes: denies: eye pain, eye discharge, vision change ENT: denies: ear pain, throat pain Respiratory: denies: cough, shortness of breath, wheezing Cardiovascular: as per HPI, chest pain. denies: palpitations Endocrine: no symptoms reported Gastrointestinal: denies: abdominal pain, nausea, diarrhea Genitourinary: denies: urgency, dysuria Musculoskeletal: denies: back pain, joint swelling, arthralgia Skin: denies: rash, lesions Neurological: denies: headache, weakness, paresthesias Psychiatric: denies: anxiety, depression Hematological/Lymphatic: denies: easy bleeding, easy bruising ED Past Medical Hx - Past Medical History Hx Hypertension: Yes Hx Heart Attack/AMI: No Hx Diabetes: Yes Hx Deep Vein Thrombosis: No Hx Liver Disease: No Hx Renal Disease: No Hx Sickle Cell Disease: No Hx Seizures: No Hx Kidney Stones: Yes (LEFT) Hx Asthma: No Hx COPD: No Hx HIV: No Additional medical history: DIVERTICULITIS, ANEMIA AND BLOOD TRANSFUSION, Bypass, stent - Surgical History Hx Open Heart Surgery: Yes (X2 PROCEDURES) Hx Pacemaker: No Hx Internal Defibrillator: No Additional Surgical History: LEFT EAR SURGERY. CABG X2. 02/26/2015. [facility]. Cardiac Cath 02/21/2015 here - Social History Smoking Status: Never Smoker Substance Use Type: None - Medications Home Medications: Home Medications Medication Instructions Recorded Confirmed Last Taken Type Ferrous Sulfate [Feosol 325 MG tab] 325 mg PO BID #60 tablet 06/05/17 06/12/19 06/11/19 Rx traMADoL [Ultram 50 MG tab] 100 mg PO BID #30 tablet 01/28/18 06/12/19 06/11/19 Rx AtorvaSTATin [Lipitor] 40 mg PO QHS #30 tablet 04/06/18 06/12/19 06/11/19 Rx Clopidogrel [Plavix] 75 mg PO QDAY #30 tablet 04/06/18 06/12/19 06/11/19 Rx Metoprolol [Lopressor TAB] 25 mg PO BID #60 tablet 04/06/18 06/12/19 06/11/19 Rx glipiZIDE [Glucotrol] 5 mg PO BID 10/24/18 06/12/19 06/11/19 History metFORMIN [Glucophage] 500 mg PO BID 10/24/18 06/12/19 06/11/19 History Docusate Sodium [Colace] 100 mg PO BID PRN #30 capsule 06/19/19 Unknown Rx Phenol 1.4% [Chloraseptic] 1 spray MM PRN PRN 10 Days #1 06/19/19 Unknown Rx bottle bisacodyL [Dulcolax suppos] 10 mg NJ QDAY PRN #14 supp.rect 06/19/19 Unknown Rx oxyCODONE /ACETAMINOPHEN [Percocet 1 tab PO Q8H PRN #15 tablet 06/19/19 Unknown Rx 5/325 mg] Acetaminophen/Codeine [Tylenol 1 tab PO Q8HR PRN #14 tab 08/06/19 Unknown Rx /Codeine # 3 tab] traMADoL [Ultram] 50 mg PO Q6HR PRN #10 tablet 02/01/20 Unknown Rx ED Physical Exam - General Limitations: No Limitations General appearance: alert, in no apparent distress - Head Head exam: Present: atraumatic, normocephalic - Eye Eye exam: Present: normal appearance. Absent: scleral icterus - ENT ENT exam: Present: mucous membranes moist - Neck Neck exam: Present: normal inspection - Respiratory Respiratory exam: Present: normal lung sounds bilaterally. Absent: respiratory distress - Cardiovascular Cardiovascular Exam: Present: regular rate, normal rhythm. Absent: systolic murmur, diastolic murmur, rubs, gallop - GI/Abdominal GI/Abdominal exam: Present: soft, normal bowel sounds. Absent: distended, tenderness, guarding, rebound, rigid - Rectal Rectal exam: Present: deferred - Extremities Exam Extremities exam: Present: normal inspection - Back Exam Back exam: Present: normal inspection - Neurological Exam Neurological exam: Present: alert, oriented X3, CN II-XII intact. Absent: motor sensory deficit - Psychiatric Psychiatric exam: Present: normal affect, normal mood - Skin Skin exam: Present: warm, dry, intact, normal color. Absent: rash ED Course Vital Signs 02/01/20 02/01/20 02/01/20 02:36 07:52 08:00 Temperature 98.1 F Pulse Rate 84 78 Respiratory 18 16 Rate Blood Pressure 178/105 173/96 Blood Pressure [Right] O2 Sat by Pulse 97 97 97 Oximetry 02/01/20 02/01/20 02/01/20 08:03 08:15 08:31 Temperature 98.0 F Pulse Rate 77 76 79 Respiratory 18 13 12 Rate Blood Pressure 173/96 173/96 Blood Pressure 173/96 [Right] O2 Sat by Pulse 100 96 98 Oximetry 02/01/20 02/01/20 02/01/20 08:45 08:51 09:01 Temperature Pulse Rate 75 78 Respiratory 13 Rate Blood Pressure 173/96 173/96 157/81 Blood Pressure [Right] O2 Sat by Pulse 98 94 Oximetry 02/01/20 02/01/20 02/01/20 09:15 09:31 09:45 Temperature Pulse Rate Respiratory Rate Blood Pressure 157/81 173/96 173/96 Blood Pressure [Right] O2 Sat by Pulse 96 95 96 Oximetry 02/01/20 10:01 Temperature Pulse Rate Respiratory Rate Blood Pressure 150/74 Blood Pressure [Right] O2 Sat by Pulse 92 Oximetry - Reevaluation(s) Reevaluation #1: No appreciable pain in the emergency department. The presentation is quite atypical. The cardiac work-up is negative. The patient is appropriate for outpatient follow-up and further evaluation. 02/01/20 10:12 LEVI score - Levi Score Age > 65: (1) Yes Aspirin use within the Past 7 Days: (0) No 3 or more CAD Risk Factors: (0) No 2 or more Angina events in past 24 hrs: (1) Yes Known CAD with more than 50% Stenosis: (0) No Elevated Cardiac Markers: (0) No ST Deviation Greater than 0.5mm: (0) No LEVI Score: 2 ED Medical Decision Making - Lab Data Result diagrams: 02/01/20 03:51 02/01/20 03:51 Laboratory Results - last 24 hr 02/01/20 02/01/20 02/01/20 03:51 03:51 07:14 WBC 10.4 RBC 5.39 H Hgb 16.7 H Hct 47.7 H MCV 89 MCH 31 MCHC 35 H RDW 13.2 Plt Count 255 Lymph % (Auto) 27.5 [place] % (Auto) 7.9 H Eos % (Auto) 1.7 Baso % (Auto) 0.8 Lymph # (Auto) 2.9 [place] # (Auto) 0.8 Eos # (Auto) 0.2 Baso # (Auto) 0.1 Seg Neutrophils % 62.1 Seg Neutrophils # 6.4 Sodium 143 Potassium 4.2 Chloride TNR Carbon Dioxide 28 Anion Gap 17 BUN 17 Creatinine 0.8 Estimated GFR > 60 BUN/Creatinine Ratio 21 Glucose 161 H Calcium 10.1 Troponin T < 0.010 < 0.010 Laboratory Results - last 24 hr 02/01/20 02/01/20 02/01/20 03:51 03:51 07:14 WBC 10.4 RBC 5.39 H Hgb 16.7 H Hct 47.7 H MCV 89 MCH 31 MCHC 35 H RDW 13.2 Plt Count 255 Lymph % (Auto) 27.5 [place] % (Auto) 7.9 H Eos % (Auto) 1.7 Baso % (Auto) 0.8 Lymph # (Auto) 2.9 [place] # (Auto) 0.8 Eos # (Auto) 0.2 Baso # (Auto) 0.1 Seg Neutrophils % 62.1 Seg Neutrophils # 6.4 Sodium 143 Potassium 4.2 Chloride TNR Carbon Dioxide 28 Anion Gap 17 BUN 17 Creatinine 0.8 Estimated GFR > 60 BUN/Creatinine Ratio 21 Glucose 161 H Calcium 10.1 Troponin T < 0.010 < 0.010 - EKG Data -: EKG Interpreted by Mt EKG shows normal: sinus rhythm, axis, intervals, QRS complexes, ST-T waves Rate: normal - EKG Data Interpretation: other (Leftward) - Radiology Data Radiology results: report reviewed (No acute process) Critical care attestation.: If time is entered above; I have spent that time in minutes in the direct care of this critically ill patient, excluding procedure time. ED Disposition Clinical Impression: Atypical chest pain, Essential hypertension Disposition: - TO HOME OR SELFCARE Is pt being admited?: No Does the pt Need Aspirin: No Condition: Stable Instructions: Chest Pain (ED), Nonspecific Chest Pain, Adult, Hypertension (ED) Additional Instructions: Return any acute change or worsening symptoms. Rx as needed for pain. Further evaluation through your primary care and specialty physicians. Prescriptions: traMADoL [Ultram] 50 mg PO Q6HR PRN #10 tablet PRN Reason: Pain Referrals: PRIMARY CARE, [Primary Care Provider] - 3-5 Days
[2020-02-01] MEDS ORDERED: METOPROLOL TARTRATE 50 MG TAB PO ONE (08:12)
[2020-02-01 10:36] VITALS: BP 126/84
== END 2020-02-01 10:38 | disposition home or self-care (01) ==
LOC: ED 02:28
DX: R07.89 Other chest pain (principal); I10 Essential (primary) hypertension; E11.9 Type 2 diabetes mellitus without complications; Z87.442 Personal history of urinary calculi
CPT/HCPCS: 36415; 71045; 80048; 84484; 85025; 85379; 93005

== ENCOUNTER 2020-02-20 14:30 | Outpatient (CLI) | payer MEDICARE ==
[2020-02-20 15:39] LABS: Alanine Aminotransferase 44 units/L (7-56); Albumin 4.4 g/dL (3.9-5); Chol/HDL Ratio 3.71 %; HDL Cholesterol 32 mg/dL (40-59); LDL Cholesterol,Direct 63 mg/dL (50-130)
[2020-02-20 15:55] LABS: Bilirubin,Direct < 0.2 mg/dL (0-0.2)
== END 2020-02-20 14:31 | disposition home or self-care (01) ==
LOC: LAB 14:30
PROVIDERS: ATTEND Internal Medicine
DX: E11.9 Type 2 diabetes mellitus without complications (principal); E78.5 Hyperlipidemia, unspecified; E55.9 Vitamin D deficiency, unspecified; Z00.00 Encounter for general adult medical examination without abnormal findings; Z13.29 Encounter for screening for other suspected endocrine disorder
CPT/HCPCS: 36415; 80061; 80076; 82652; 83036; 84443

== ENCOUNTER 2020-07-05 09:25 | Outpatient (CLI) | payer MEDICARE | END 2020-07-05 09:26 | disposition home or self-care (01) | LOC: LAB 09:25 | PROVIDERS: ATTEND Internal Medicine | DX: E11.9 Type 2 diabetes mellitus without complications (principal); R94.6 Abnormal results of thyroid function studies | CPT/HCPCS: 36415; 83036; 84436; 84443 ==

== ENCOUNTER 2020-11-27 10:33 | Outpatient (CLI) | payer MEDICARE ==
[2020-11-27 11:12] LABS: Chol/HDL Ratio 3.52 %
== END 2020-11-27 10:34 | disposition home or self-care (01) ==
LOC: LAB 10:33
PROVIDERS: ATTEND Internal Medicine
DX: R94.6 Abnormal results of thyroid function studies (principal); E11.9 Type 2 diabetes mellitus without complications; E78.5 Hyperlipidemia, unspecified
CPT/HCPCS: 36415; 80061; 83036; 84439; 84443

== ENCOUNTER 2021-04-29 10:32 | Outpatient (CLI) | payer MEDICARE ==
[2021-04-29 11:34] LABS: Basophils # (Auto) 0.1 K/mm3 (0.0-0.1); Basophils % (Auto) 0.8 % (0.0-1.8); Eosinophils # (Auto) 0.2 K/mm3 (0.0-0.4); Eosinophils % (Auto) 1.4 % (0.0-4.3); Hemoglobin 15.1 gm/dl (11.8-15.2); Lymphocytes # (Auto) 2.5 K/mm3 (1.2-5.4); Lymphocytes % (Auto) 19.4 % (13.4-35.0); Mean Corpuscular HGB Conc 34 % (32-34); Mean Corpuscular Volume 89 fl (84-94); Monocytes # (Auto) 0.9 K/mm3 (0.0-0.8); Monocytes % (Auto) 7.4 % (0.0-7.3); Platelet Count 278 K/mm3 (140-440); Red Blood Count 5.08 M/mm3 (3.65-5.03); Red Cell Distribution Width 13.5 % (13.2-15.2)
[2021-04-29 11:52] LABS: Alanine Aminotransferase 21 units/L (7-56); Albumin 4.6 g/dL (3.9-5); BUN/Creatinine Ratio 18; Blood Urea Nitrogen 20 mg/dL (9-20); Calcium 9.6 mg/dL (8.4-10.2); Chol/HDL Ratio 2.91 %; HDL Cholesterol 35 mg/dL (40-59); Hemolysis Index 4; LDL Cholesterol,Direct 44 mg/dL (50-130)
[2021-04-29 17:30] LABS: Microalbumin/Creatinine Ratio 297.2 ug/mg
[2021-05-02 11:27] LABS: Vitamin D, 25-OH, D2 <4 ng/mL
== END 2021-04-29 10:33 | disposition home or self-care (01) ==
LOC: LAB 10:32
PROVIDERS: ATTEND Internal Medicine
DX: E11.9 Type 2 diabetes mellitus without complications (principal); R94.6 Abnormal results of thyroid function studies; E55.9 Vitamin D deficiency, unspecified; R39.11 Hesitancy of micturition; R39.16 Straining to void; E78.5 Hyperlipidemia, unspecified
CPT/HCPCS: 36415; 80053; 80061; 82043; 82306; 83036; 84153; 84443; 85025

== ENCOUNTER 2021-06-24 10:12 | Outpatient (CLI) | payer MEDICARE ==
[2021-06-24 11:06] LABS: Bilirubin,Urine NEG (Negative); Blood,Urine NEG (Negative); Color,Urine Yellow (Yellow); Hyaline Casts,Urine 3 /LPF; Mucus,Urine 3+ /HPF; Urobilinogen,Urine < 2.0 mg/dL (<2.0)
[2021-06-24 11:19] LABS: Basophils # (Auto) 0.1 K/mm3 (0.0-0.1); Basophils % (Auto) 0.7 % (0.0-1.8); Eosinophils # (Auto) 0.2 K/mm3 (0.0-0.4); Eosinophils % (Auto) 1.6 % (0.0-4.3); Hematocrit 46.2 % (35.5-45.6); Hemoglobin 15.4 gm/dl (11.8-15.2); Lymphocytes # (Auto) 2.5 K/mm3 (1.2-5.4); Lymphocytes % (Auto) 22.8 % (13.4-35.0); Mean Corpuscular HGB Conc 33 % (32-34); Mean Corpuscular Volume 89 fl (84-94); Monocytes # (Auto) 0.7 K/mm3 (0.0-0.8); Monocytes % (Auto) 6.7 % (0.0-7.3); Platelet Count 240 K/mm3 (140-440); Red Cell Distribution Width 13.3 % (13.2-15.2)
[2021-06-24 11:37] LABS: Free T4 (Free Thyroxine) 0.77 ng/dL (0.76-1.46)
== END 2021-06-24 10:13 | disposition home or self-care (01) ==
LOC: LAB 10:12
PROVIDERS: ATTEND Internal Medicine
DX: D72.829 Elevated white blood cell count, unspecified (principal); R97.20 Elevated prostate specific antigen [PSA]; R94.6 Abnormal results of thyroid function studies
CPT/HCPCS: 36415; 81001; 84439; 84443; 85025

== ENCOUNTER 2021-08-27 08:22 | Outpatient (CLI) | payer MEDICARE ==
--- NOTE | 2021-08-27 15:22 | Nuclear Medicine Report ---
NUCLEAR MEDICINE BONE SCAN, WHOLE BODY INDICATION / CLINICAL INFORMATION: C61 MALIGNANT NEOPLASM OF PROSTATE. TECHNIQUE: 26.3 mCi of Tc-99m MDP were injected IV. Images were obtained of the whole body. COMPARISON: CT abdomen pelvis dated 08/06/19. FINDINGS: BONES: No osseous lesion or other abnormality. JOINTS: Degenerative activity in both thumb CMC joints. SOFT TISSUES: No significant abnormality. KIDNEYS: No significant abnormality. ADDITIONAL FINDINGS: None. IMPRESSION: 1. No scintigraphic evidence for osseous metastatic disease. Signer Name: Dar Carpio MD Signed: 08/27/2021 3:18 PM Workstation Name: [id number]
== END 2021-08-27 08:23 | disposition home or self-care (01) ==
LOC: NM 08:22
PROVIDERS: ATTEND Urology
DX: C61 Malignant neoplasm of prostate (principal); R97.20 Elevated prostate specific antigen [PSA]
CPT/HCPCS: 78306; A9503

== ENCOUNTER 2021-09-10 08:08 | Day surgery (SDC) | payer MEDICARE ==
[~2021-09-10 08:08] MED LIST: LIDOCAINE (1%) 10 MG/1 ML VIAL 20 ML MDV ONE; SODIUM CHLORIDE 0.9% 1000 ML 1,000 ML IV SCH; propofoL 200 MG/20 ML VIAL IV ONE
--- NOTE | 2021-09-10 09:28 | Anesthesia Consultation ---
Anesthesia Consult and Med Hx Date of service: 09/10/21 - Airway Anesthetic Teeth Evaluation: Poor (multiple broken teeth) ROM Head & Neck: Adequate Mental/Hyoid Distance: Adequate Mallampati Class: Class II Intubation Access Assessment: Probably Good - Pre-Operative Health Status ASA Pre-Surgery Classification: ASA3 Proposed Anesthetic Plan: MAC - Pulmonary Hx Smoking: No Hx Asthma: No Hx Respiratory Symptoms: No SOB: No COPD: No Hx Pneumonia: No Hx Sleep Apnea: No - Cardiovascular System Hx Hypertension: Yes Hx Coronary Artery Disease: Yes (s/p CABG x 2 (02/2015)) Hx Heart Attack/AMI: No Hx Angina: Yes Hx Percutaneous Transluminal Coronary Angioplasty (PTCA): Yes (x1 stent) Hx Cardia Arrhythmia: No Hx Pacemaker: No Hx Internal Defibrillator: No Hx Valvular Heart Disease: No Hx Heart Murmur: No Hx Peripheral Vascular Disease: No - Central Nervous System Hx Neuromuscular Disorder: No Hx Seizures: No CVA: No Hx Back Pain: No Hx Psychiatric Problems: No - Gastrointestinal Hx Ulcer: No Hx Gastroesophageal Reflux Disease: Yes (tums, dysphagea) - Endocrine Hx Renal Disease: No Hx End Stage Renal Disease: No Hx Cirrhosis: No Hx Liver Disease: No Hx Insulin Dependent Diabetes: No Hx Non-Insulin Dependent Diabetes: Yes Hx Thyroid Disease: No Hx Hypothyroidism: No Hx Hyperthyroidism: No - Hematic Hx Anemia: No Hx Sickle Cell Disease: No - Other Systems Hx Alcohol Use: No Hx Substance Use: No Hx Cancer: Yes (small bowel CA (surgery 2019), prostate CA (Dx 2021)) Hx Obesity: Yes (BMI 30)
--- NOTE | 2021-09-10 09:32 | Anesthesia Day of Surgery ---
Anesthesia Day of Surgery - Day of Surgery Patient Examined: Yes Patient H&P Reviewed: Yes Patient is NPO: Yes Beta Blockers: Yes Cardiac Clearance: Yes
[2021-09-10] MEDS ORDERED: propofoL 200 MG/20 ML VIAL IV ONE ×2 (09:34)
--- NOTE | 2021-09-10 10:19 | Short Stay Summary ---
Short Stay Documentation Date of service: 09/10/21 Narrative H&P: The patient presents today for surveillance colonoscopy for hx polyps. Last study over 5 years ago. Also presents for EGD to evaluate episodes of nausea. - History Past Medical History: CAD, cancer (history of small bowel cancer, prostate cancer, CAD), diabetes, hypertension Past Surgical History: CABG, bowel surgery Social history: no significant social history, no smoking - Allergies and Medications Current Medications: Allergies No Known Allergies Allergy (Verified 03/01/19 10:15) Home Medications Medication Instructions Recorded Confirmed Last Taken Type Ferrous Sulfate [Feosol 325 MG tab] 325 mg PO BID #60 tablet 06/05/17 06/12/19 06/11/19 Rx AtorvaSTATin [Lipitor] 40 mg PO QHS #30 tablet 04/06/18 06/12/19 06/11/19 Rx Clopidogrel [Plavix] 75 mg PO QDAY #30 tablet 04/06/18 06/12/19 06/11/19 Rx Metoprolol [Lopressor TAB] 25 mg PO BID #60 tablet 04/06/18 06/12/19 06/11/19 Rx glipiZIDE [Glucotrol] 5 mg PO BID 10/24/18 06/12/19 06/11/19 History metFORMIN [Glucophage] 500 mg PO BID 10/24/18 06/12/19 06/11/19 History Docusate Sodium [Colace] 100 mg PO BID PRN #30 capsule 06/19/19 Unknown Rx Active Medications Sodium Chloride (Nacl 0.9% 1000 Ml) 1,000 mls @ 50 mls/hr IV DIRECT GÉNESIS - Physical exam General appearance: no acute distress, well-nourished Integumentary: no rash, no growths, no abnormal pigmentation HEENT: Atraumatic, PERRLA, EOMI, Mucous membr. moist/pink Lungs: Clear to auscultation, Normal air movement Breasts: deferred Heart: Regular rate, Normal S1, Normal S2, No murmurs Gastrointestinal: normoactive bowel sounds, no tenderness, no distended, no masses, no guarding, no organomegaly, no obese Male Genitourinary: deferred Rectal Exam: normal exam-external/orifice, no mass Extremities: no ischemia, pulses intact, pulses symmetrical, No edema, normal temperature, normal color, Full ROM Neurological: Normal gait, Normal speech, Strength at 5/5 X4 ext, Normal tone, Sensation intact, Cranial nerves 3-12 NL - Brief post op/procedure progress note Date of procedure: 09/10/21 Procedure: see dictation Estimated blood loss: none Pathology: list (biopsies of antrum and body for h pylori) Specimen disposition: to lab Condition: stable - Disposition Condition at discharge: Good Disposition: 01 HOME / SELF CARE / HOMELESS - Discharge Diagnoses (1) History of colon polyps Status: Acute (2) Nausea & vomiting Status: Acute Short Stay Discharge Plan Activity: other (no driving for 24 hours.) Weight Bearing Status: Weight Bear as Tolerated Diet: diabetic Follow up with: FIDE MELENDEZ MD [Primary Care Provider] - 7 Days
--- NOTE | 2021-09-10 10:26 | Operative Report ---
Operative Report Operative Report: Date of procedure: 09/10/2021 Preprocedure diagnosis: History of colon polyps. Last study over 5 years ago. Post procedure diagnosis: Mild left colon diverticulosis. Exam limited to the extent of the hepatic flexure due to loop formation. Procedure: Colonoscopy to the hepatic flexure Endoscopist: Dr. Byrnes Anesthesia: Monitored anesthesia care per anesthesia department Estimated blood loss: 0 Medications: Monitored anesthesia care. See separate report by anesthesia for details. After careful discussion of the nature and purpose of the procedure as well as details of the technique risks benefits and alternatives the patient gave consent. Please see recent history and physical from the office. The patient was placed in the left lateral decubitus position and medicated per anesthesia. A rectal exam was performed sphincter tone was normal there were no masses palpable. The [employer] 570 scope was passed transanally and advanced under continuous direct vision without difficulty to the hepatic flexure. The colon was well prepared. The patient had significant loop formation presumably secondary to prior abdominal surgery. Loop could not be splinted successfully in the left lateral position, supine or lying on the right side. The ascending colon and cecum was therefore not inspected. The transverse colon was normal. The descending colon revealed a few scattered diverticula. Sigmoid colon was normal. The rectum was normal on forward and retroflexed views. The procedure was well-tolerated overall and the patient was observed in recovery. Conclusions: Mild left colon diverticulosis. Normal study otherwise to the ascending colon. Incomplete study due to loop formation presumably from adhesions from prior small bowel surgery Plan: Air-contrast barium enema within the next few months to complete the imaging of the colon. Signed electronically: Jorge Byrnes M.D.
[2021-09-10] MEDS ORDERED: NEOMY 3.5 MG/BACIT 400 UNITS/POLY B 5000 UNITS/GM OINT PACKET TP ONE (10:33)
[2021-09-10 15:26] VITALS: BP 129/86
--- NOTE | 2021-10-08 09:28 | Operative Report ---
Operative Report Operative Report: Date of procedure: 09/10/2021 Procedure: Esophagogastroduodenoscopy with antral biopsies. Preprocedure diagnosis: Abdominal pain. Post procedure diagnosis: Erosive antral gastritis. Endoscopist: Dr. Byrnes Anesthesia: Monitored anesthesia care per anesthesia department Medications: Propofol per anesthesia. Estimated blood loss: 0 After careful discussion of the nature and purpose of the procedure as well as details the technique risks benefits and alternatives consent was obtained. The patient was placed in the left lateral decubitus position and medicated per anesthesia. The tip of the [employer] EQ 570 video scope was passed per orum under direct vision into the esophagus and advanced into the stomach and descending duodenum. The descending duodenum the duodenal bulb and pylorus were symmetrical and normal. The scope was withdrawn into the stomach and the stomach then gently insufflated with air. The antrum revealed moderate erosive gastritis. Biopsies were obtained from the antrum and body to exclude H. pylori. The stomach was further insufflated and the scope was then retroflexed and partially withdrawn. The cardia, fundus, and body of the stomach were within normal limits and easily distensible.The scope was then withdrawn in the forward position. The esophagogastric junction was at 40 cm. The esophageal body was normal throughout. The procedure was was well tolerated and the patient was observed in recovery. Impressions: Erosive gastritis. Plan: Await pathology. The patient will call the office in the next week or 2 to discuss the results. Treatment of H. pylori, if present. Electronically signed: Jorge Byrnes MD
== END 2021-09-10 11:00 | disposition home or self-care (01) ==
LOC: GIO 08:08
PROVIDERS: ATTEND Internal Medicine Gastroenterology
DX: R10.9 Unspecified abdominal pain (principal); K57.30 Diverticulosis of large intestine without perforation or abscess without bleeding; K29.70 Gastritis, unspecified, without bleeding; K31.89 Other diseases of stomach and duodenum; D64.9 Anemia, unspecified; R19.5 Other fecal abnormalities; E11.9 Type 2 diabetes mellitus without complications; I10 Essential (primary) hypertension; E78.5 Hyperlipidemia, unspecified; I25.110 Atherosclerotic heart disease of native coronary artery with unstable angina pectoris; F41.9 Anxiety disorder, unspecified; F32.9 Major depressive disorder, single episode, unspecified; E66.9 Obesity, unspecified; K56.600 Partial intestinal obstruction, unspecified as to cause; K21.9 Gastro-esophageal reflux disease without esophagitis; Z86.010 Personal history of colon polyps; Z79.84 Long term (current) use of oral hypoglycemic drugs; Z95.1 Presence of aortocoronary bypass graft; Z95.5 Presence of coronary angioplasty implant and graft; Z85.46 Personal history of malignant neoplasm of prostate; Z98.890 Other specified postprocedural states; Z80.0 Family history of malignant neoplasm of digestive organs; Z68.30 Body mass index [BMI] 30.0-30.9, adult
CPT/HCPCS: 43239; 45378; 82962; 88305; 88342; J2704; J7030; 88307

== ENCOUNTER 2021-11-12 08:50 | Outpatient (CLI) | payer MEDICARE ==
[2021-11-12 10:03] LABS: Basophils # (Auto) 0.1 K/mm3 (0.0-0.1); Basophils % (Auto) 0.7 % (0.0-1.8); Eosinophils # (Auto) 0.2 K/mm3 (0.0-0.4); Eosinophils % (Auto) 1.5 % (0.0-4.3); Hematocrit 44.4 % (35.5-45.6); Hemoglobin 15.2 gm/dl (11.8-15.2); Lymphocytes # (Auto) 2.6 K/mm3 (1.2-5.4); Lymphocytes % (Auto) 25.6 % (13.4-35.0); Mean Corpuscular HGB Conc 34 % (32-34); Mean Corpuscular Volume 89 fl (84-94); Monocytes # (Auto) 0.8 K/mm3 (0.0-0.8); Monocytes % (Auto) 7.4 % (0.0-7.3); Platelet Count 260 K/mm3 (140-440); Red Blood Count 5.01 M/mm3 (3.65-5.03); Red Cell Distribution Width 13.7 % (13.2-15.2)
[2021-11-12 11:35] LABS: Creatinine,Urine 350.5 mg/dL (0.1-20.0)
[2021-11-12 11:45] LABS: Microalbumin/Creatinine Ratio 243.6 ug/mg
== END 2021-11-12 08:51 | disposition home or self-care (01) ==
LOC: LAB 08:50
PROVIDERS: ATTEND Internal Medicine
DX: D72.829 Elevated white blood cell count, unspecified (principal); E11.9 Type 2 diabetes mellitus without complications; R94.6 Abnormal results of thyroid function studies; R80.9 Proteinuria, unspecified
CPT/HCPCS: 36415; 82043; 83036; 84439; 84443; 85025